=== PATIENT | female | born 1970 | race Caucasian/White ===

== ENCOUNTER 2024-03-13 15:49 | Emergency (ER) | payer MEDICARE, MEDICAID, SELFPAY ==
--- NOTE | ~2024-03-13 | US_ITS ---
RIGHT LOWER EXTREMITY VENOUS ULTRASOUND Ordering provider: Karlos Berumen APRN History: . right leg pain swelling, s/p knee replacement . Comparison: None. FINDINGS: --COMMON FEMORAL: Patent and free of thrombus. Normal compressibility, phasic flow and augmentation. --PROXIMAL SUPERFICIAL FEMORAL: Patent and free of thrombus. Normal compressibility, phasic flow and augmentation. --DISTAL SUPERFICIAL FEMORAL: Patent and free of thrombus. Normal compressibility, phasic flow and au gmentation. --POPLITEAL: Patent and free of thrombus. Normal compressibility, phasic flow and augmentation. --POSTERIOR TIBIAL: Patent and free of thrombus. Normal compressibility, phasic flow and augmentation . IMPRESSION: Negative right lower extremity venous US. No deep vein thrombosis. Reviewed, dictated and finalized at location A.
--- NOTE | ~2024-03-13 | XR_ITS ---
XR knee RT 3V Ordering provider: Marlene Vidal MD History: . POSTOP FEBRUARY 18. RT KNEE PAIN . Comparison: None. FINDINGS: BONES: No acute fracture or dislocation. JOINT SPACES: Right total knee arthroplasty. SOFT TISSUES: Normal. IMPRESSION: No acute osseous abnormality right knee. Right total knee arthroplasty.. Reviewed, dictated and finalized at location A.
[2024-03-13 16:05] VITALS: BP 145/92; PULSE 77; RESP 20; TEMP 36.6; O2SAT 100
[2024-03-13 18:30] VITALS: BP 150/87; PULSE 87; RESP 14; O2SAT 99
[2024-03-13 19:03] LABS: Basophils Absolute Auto 0.1 K/mm3 (0.0-0.1); Basophils Percent Auto 0.9 % (0.2-1.2); Eosinophils Absolute Auto 0.2 K/mm3 (0-0.3); Eosinophils Percent Auto 3.5 % (0-4.4); Hematocrit 41.5 % (37.0-47.0); Hemoglobin 13.7 g/dL (12.0-15.0); Immature Granulocyte Absolute 0.02 K/mm3 (0.00-0.031); Immature Granulocyte Percent A 0.3 % (0-0.5); Lymphocytes Absolute Auto 2.47 K/mm3 (0.9-3.2); Lymphocytes Percent Auto 36.1 % (18.3-44.2); Mean Platelet Volume 9.9 fl (7.4-10.4); Monocytes Absolute Auto 0.5 K/mm3 (0.1-0.6); Monocytes Percent Auto 7.9 % (2.6-8.5); Neutrophils Absolute Auto 3.5 K/mm3 (1.3-6.7); Neutrophils Percent Auto 51.3 % (45.5-73.1); Platelet Count Result 392 k/mm3 (150-375); Red Blood Count 4.28 M/mm3 (4.2-5.4); Red Cell Distribution Width 13.2 % (11.5-14.5); White Blood Count 6.8 K/mm3 (4.5-10.0)
--- NOTE | 2024-03-13 19:08 | ED.LOWEXIN ---
HPI - Extremity Injury (Lower) General Chief Complaint: Extremity Injury, Lower Stated Complaint: right knee pain Time Seen by Provider: 03/13/24 19:02 Source: patient and family Mode of arrival: ambulatory Limitations: no limitations History of Present Illness HPI Narrative: PATIENT IS 53 YEARS OLD WHITE FEMALE CAME TO THE EMERGENCY ROOM BY PRIVATE CAR COMPLAINING OF RIGHT KNEE PAIN RADIATING TO THE BACK OF THE RIGHT LOWER LEG STARTED IMMEDIATELY AFTER HAVING TOTAL KNEE REPLACEMENT ON FEBRUARY 20, [address] HUERTA AT [facility]. PATIENT WAS SEEN BY THAT DOCTOR 1 WEEK LATER AND WAS TOLD THE PAIN IS EXPECTED AND NOTHING SERIOUS ABOUT IT. PATIENT HAVE TRAMADOL AND HYDROCODONE AT HOME WHICH SHE DOES NOT USE BECAUSE IS NOT WORKING. PATIENT DENIES ANY FEVER, CHILLS, NAUSEA, VOMITING, INCREASED PAIN SINCE HAVING THE SURGERY ON FEBRUARY 19. PATIENT IS TELLING ME THAT THEY COULD NOT CONTROL HER PAIN AFTER HAVING THE SURGERY. Related Data Home Medications Medication Instructions Recorded Confirmed meloxicam 15 mg tablet 15 mg PO DAILY 10/24/23 02/01/24 zaleplon 5 mg capsule 5 mg PO QHS PRN 12/04/23 02/01/24 Allergies Allergy/AdvReac Type Severity Reaction Status Date / Time lurasidone AdvReac Severe Itching Verified 03/13/24 19:09 Review of Systems Review of Systems: All systems reviewed & are unremarkable except as noted in HPI and below PMFSH Past Medical History Medical History Anxiety Arthritis Insomnia Obese Osteoarthritis RLS (restless legs syndrome) Sinusitis Surgical History Surgical History History of cholecystectomy History of spinal fusion History of tonsillectomy History of total left knee replacement Hx of breast reduction, elective Family History Family History Father Hypertension Heart disease Mother Depression Sibling Alcoholism Asthma Depression Grandparent Hypertension Heart disease Social History Social History Smoking packs per day: 1.5 Smoking cigarettes per day: 30.0 Years smoked: 10 Smoking pack-years: 15.00 Smoking status: Never smoker Alcohol intake: current Alcohol use details: Occasionally - more social Substance use: never Substance use type: does not use Lack of Transportation: No Lack of Food: Never True Current Housing: I Have Housing Concerned About Future Housing: No Difficulty Paying Gas/Electric Bills: No Difficulty Paying for Meds: No Currently Unemployed: No Difficulty w/ Childcare or Family Care: No Living arrangements: with family Occupation/Education: occupation Gender identity (if verbalized by the patient): Female Exam Narrative: GENERAL APPEARANCE: WELL-DEVELOPED, WELL-NOURISHED SKIN: NORMAL COLOR HEAD: NORMOCEPHALIC, NONTRAUMATIC EYES: CLEAR CONJUNCTIVA ENT: OROPHARYNX NORMAL, EARS NORMAL, NOSE NORMAL NECK: SUPPLE, NONTENDER CHEST AND RESPIRATORY: AIRWAY PATENT, NO RESPIRATORY DISTRESS, NO ACCESSORY MUSCLE USE HEART: REGULAR RATE/RHYTHM ABDOMEN: SOFT, NONTENDER, NO ORGANOMEGALY, QUIET BOWEL SOUNDS VASCULAR: NORMAL PERIPHERAL PULSES, NORMAL CAPILLARY REFILL. MUSCULOSKELETAL: RIGHT KNEE EXAM SHOWED A VERTICAL SURGICAL SCAR, NO ERYTHEMA, NO DRAINAGE, SLIGHTLY SWOLLEN, DIFFUSELY TENDER ANTERIORLY, RIGHT CALF MUSCLE TENDERNESS. NO BRUISES, NO RASH, SLIGHT LIMITED RANGE OF MOTION OF THE RIGHT KNEE NEUROLOGIC: ALERT AND ORIENTED ?3, ZINC CHLORIDE OPERATOR IS NORMAL TESTED, NO GROSS MOTOR DEFICIT Course Consultations Consultation #1: DR HEURTA
[2024-03-13 19:13] LABS: Partial Thromboplastin Time 25.1 Seconds (22.3-36.8); Prothrombin Time 13.1 Seconds (11.1-14.7)
[2024-03-13 19:18] LABS: Alanine Aminotransferase 18 U/L (6-35); Albumin Level 4.3 g/dL (3.5-5.1); Alkaline Phosphatase 126 U/L (38-126); Anion Gap 10 mmol/L (4-12); Aspartate Amino Transferase 23 U/L (14-36); Bilirubin,Total 0.5 mg/dL (0.2-1.3); Blood Urea Nitrogen 16 mg/dL (7-17); Calcium 9.2 mg/dL (8.4-10.2); Carbon Dioxide 26 mmol/L (22-30); Chloride 101 mmol/L (98-107); Estimated CRCL calculation 81 ml/min; Estimated Glomerular Filt Rate > 60; Glucose 90 mg/dL (65-110); Potassium 3.7 mmol/L (3.4-5.0); Sodium 137 mmol/L (137-145)
[2024-03-13] MEDS: HYDROmorphone HCL INJ (*CRX) 1 MG/ML SYR IM (20:20)
[2024-03-13] MEDS: ONDANSETRON HCL ODT 4 MG TABLET PO (20:20)
[2024-03-13 20:46] VITALS: BP 142/88; PULSE 81; RESP 16; O2SAT 100
== END 2024-03-13 20:47 | disposition home or self-care (01) ==
PROVIDERS: Nurse Practitioner Family; Emergency Provider Emergency Medicine; PCP Nurse Practitioner Family
DX: G89.18 Other acute postprocedural pain (principal); M79.661 Pain in right lower leg; G25.81 Restless legs syndrome; M19.90 Unspecified osteoarthritis, unspecified site; Z96.653 Presence of artificial knee joint, bilateral; Z98.1 Arthrodesis status; Z90.49 Acquired absence of other specified parts of digestive tract
CPT/HCPCS: 36415; 73562; 80053; 85025; 85610; 85730; 93971; 96372; 99284; A9270; J1170

== ENCOUNTER 2024-09-12 14:48 | Outpatient (CLI) | payer MEDICARE, MEDICAID, SELFPAY ==
--- NOTE | ~2024-09-12 | CT_ITS ---
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 Automate d exposure control and iterative reconstruction technique were employed. The dose-length product was 235.80 mGy-cm. COMPARISON: None. FINDINGS: CHEST: Thoracic aorta: No significant dilation or calcification. Lung parenchyma and airways: Lungs and airways are clear. Calcified right middle lobe granuloma. Shannon pheral right upper lobe intrapulmonary lymph node. Thoracic inlet, axillae and chest wall: No thyroid or soft tissue mass. No axillary lymphadenopathy. Mediastinum: No mass or lymphadenopathy. Heart and pericardium: Normal heart size. No pericardial effusion. Coronary artery calcifications: Absent. Pleura: No effusion or mass. Upper abdomen: Status post gastric surgery. Status post cholecystectomy. Thoracic bones: No acute osseous finding in the chest. 12 normal appearing paired ribs. 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 IMPRESSION: Unremarkable CT chest findings. Reviewed, dictated and finalized at location K. [facility]
--- OUTSIDE RECORDS SUMMARY | 2024-09-18 07:12 | XMS_ITS | Data Portability ---
Author Organization [place] [facility] [employer], Main Office Address [address] [place] [address] Care Team Providers Care Software Trainer Name Role Phone CATHLEEN TYLER Primary Care Provider CATHLEEN TYLER Referring Provider [phone] JUVENCIO HUERTA Orthopedic Surgeon JOMAR GARBER Dentist Assessment Encounter Date Assessment Date Assessment LastModified by Organization Details LastModified Time 04/18/2024 04/18/2024 53-year-old female presents for follow-up of her right knee status post right TKA on 02/18/2025. She has been working with therapy, she states it is very painful. She currently rates her pain as 5/10 at rest, but much higher when she is being stretched. She also states the the pain is keeping her awake at night and she is experiencing muscle spasms. She was prescribed a muscle relaxant last month but she states the order never went through. She called the office but still was not able to get the script resent. Incision is clean dry intact without any signs of infection. Minimal edema. Her range of motion is 0-100, and she is continuing to work on that. Sensation intact to light touch We will have her continue working with PT. We will give her one more refill on her oxycodone. We will also resend the script for flexeril. We discussed continuing to take anti-inflammator ies. Follow-up in 2 month for recheck, or sooner as needed. [email or web address] Not available 04/18/2024 10:09:05/07/2024 05/07/2024 53-year-old female presents for follow-up of her left knee status post right TKA on 02/19/2024. She reports still having significant pain, and has been working with physical therapy. She feels like there is some crepitus in the back of the knee. She rates the pain as 4 to 6/10. She is requesting a refill on her pain medications. Incisions well healed. Swelling has gone down significantly. Trace effusion. Range of motion 0-120. Nonantalgic gait. X-rays of the knee were reviewed, demonstrating hardware intact and in place, no signs of loosening. She is still less than 3 months out from surgery. We will continue with rehab and she should continue her physical therapy. We gave her a refill for her oxycodone and her Celebrex. Follow-up in 2-3 months. Not available 05/07/2024 17:13:57 06/04/2024 06/04/2024 53-year-old female presents for follow-up of her right TKA on 02/19/2024. She still has significant soreness and stiffness in the knee. She has been doing physical therapy with some improvement, currently taking codeine which is the only thing that helps for her pain, also icing and using essential oils. She currently rates her pain 7 to 8/10. Incision is clean dry intact without any signs of infection. Trace effusion. Range of motion 0-120. Nonantalgic gait. She has had some improvement with physical therapy, but still complains about pain and stiffness. We will send her to pain management to evaluate for other treatment modalities such as nerve block. We will see her back in 2-3 months after the next round of treatment. She may call with any questions prior to then. Not available 06/06/2024 16:21:30 09/03/2024 09/03/2024 53-year-old female presents for evaluation of her right knee. She has a history of a right TKA done on 02/19/2024. She has had persistent swelling and pain and we sent her to pain management. This helped temporarily and she is scheduled for another nerve ablation procedure soon. She reports pain is getting worse. Currently rated 3/10. She has trouble with walking and feels like it gives out sometimes. She has antalgic gait. 1+ effusion. Range of motion 10-120. She does have pain with terminal range of motion. Incision is well healed, no erythema, bleeding, drainage. X-rays were reviewed, demonstrating postsurgical changes with TKA in place. There appears to be a slight lucency at the interface over the medial tibial plateau, no lucency around the stem or rest of the implant she has a persistently painful total knee. We will send her for lab work to rule out infection. WBC, ESR, CRP were ordered. She should continue follow-up with her pain management and get the procedure done. We will see her back in 4-6 weeks for recheck, or sooner as needed. [email or web address] Not available 09/03/2024 11:57:19 Plan of Treatment Reminders Order Date Submit Date Provider Last Modified By Organization Details Last Modified Time Details Appointments Any 5 2024 02:15P Tanner Huerta MD Not available Not available Not available Lab ESR (erythr ocyte sedimen tation rate), blood 2024 025 [facility] (Lab), [address] [place] [address], [phone], 09/04/2024 18:04:21 C-react rojas protein , quantit ative, serum or plasma 2024 025 [facility] (Lab), [address] [place], [place] [address] [address] [place] [address], [phone], 09/04/2024 18:04:21 wbc diff, auto, blood 2024 025 [facility] (Lab), [address] [place], [place] [address] [address] [place] [address], [phone], 09/04/2024 18:04:20 Referral physica l therapi st referra l - continu e [address] [facility], [address] [facility] [address], [place], [address], 05/07/2024 14:48:[address] phys[address]i st referra l - continu e PT [address] [facility], [address], [place], [address], 06/04/2024 15:29:32 pain managem ent referra l 2023 024 [facility], [address], [address] [address], [place], [address], 07/01/2024 11:36:21 Procedures None recorde d. Surgeries None recorde d. Imaging XR, knee, 3 view 2023 024 [email or web address] [facility] [place], [address], [place], [address], 05/08/2024 08:22:33 Medication Orders cyclobe nzaprin e 10 mg tablet 2023 024 [email or web address] [address], [address], 06/04/2024 10:14:26 hydroco done 5 mg-acet aminoph en 325 mg tablet 2023 024 [email or web address] [facility] [address], [address], 04/19/2024 15:21:28 oxycodo ne-acet aminoph en 5 mg-325 mg tablet 2023 024 [email or web address] [facility] [address], [address], 06/04/2024 10:16:02 celecox ib 200 mg capsule 2023 024 [email or web address] [address], [address], 06/04/2024 10:14:20 oxycodo ne 5 mg tablet 2023 024 [email or web address] [address] [place], [address], 06/06/2024 16:19:59 Patient TargetsNo targets recorded. Patient InstructionsNo instructions recorded. Reason for Referral Physical Therapist Referral for History of right total knee replacement continue Referring Physician: Juvencio Huerta, Orthopedic Surgery, Encounter Date: 05/07/2024 Physical Therapist Referral for Pain of right knee joint continue PT Referring Physician: Juvencio Huerta, Orthopedic Surgery, Encounter Date: 06/04/2024 Pain Management Referral for Pain of right knee joint Referring Physician: Juvencio Huerta, Orthopedic Surgery, Encounter Date: 06/04/2024 Results Created Date Observation Date Name Description Value Unit Range Abnormal Flag Note LastModifiedBy Organization Detail LastModifiedTime 05/07/20 24 XR, knee, 3 view No observ ation record ed. [email or web address] [facility] [place] [address] [facility] [address], [place], [address], 05/07/2024 11:40:11 Result Notes None recorded. Problems Name Problem SNOMED Code Status Onset Date Resolution Date Notes Provider Name and Address Organization Details Recorded Time Insomnia 156956856 Active 2022 Not Available [employer] 3 22:21:20 Anxiety 26519248 Active 2022 Not Available [employer] 3 22:21:20 Hyperlipid emia 00645272 Active 2022 Not Available [employer] 3 22:21:20 Hyperglyce elio 36151967 Active 2022 Not Available [employer] 3 22:21:20 Osteoarthr itis of knee 405147901 Active 2022 Not Available [employer] 3 22:21:20 Obese 729495891 Active 2022 Not Available [employer] 3 22:21:20 Pain of bilateral knee joints 7142495868368 04 Active 2022 Not Available [employer] 3 22:21:20 Arthritis of left knee 8978025170770 104 Active 2022 Not Available [facility] 3 22:21:20 Restless legs 98434419 Active 2022 Not Available [facility] 3 22:21:20 Pain of left knee joint 4826998353280 07 Active 2022 Virginia Diego ATC L null, [place] [facility] 3 10:07:27 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 4859007700869 9104 Active 2023 Virginia Diego ATC L null, [place] [facility] 4 10:56:33 Pain of right knee joint 9925007295909 00 Active 2023 PATY Rai, [place] [facility] 4 10:22:59 Lesion of lip 163152499 Active 2023 Gerald Madison MD [address] [facility], [address], [address] , [facility] 4 12:59:00 Postoperat rojas pain 574951286 Active 2023 Gerald Madison MD [address] [facility], [address] [address], [place], [address] , [facility] 4 16:56:21 Skin tag 012947269 Active 2023 FABIAN Romano [address] [facility], [address] [address], [place], [address] , [facility] 4 12:18:24 Mechanical complicati on of implant 650736586 Active 2024 Virginia Diego ATC L null, [facility] 5 11:11:13 Problem Notes None recorded. Procedures Surgical History Date Name Laterality Status Provider Name and Address Organization Details Recorded Time 02/19/20 24 Knee Surgery completed PATY Alexander [facility] 02/20/2024 11:34:36 04/25/20 23 Ortho - Cortisone Injection completed Armida Forrester NP [address] [facility], [address], [place], [address], [facility] [employer] [facility] 04/26/2023 21:15:12 04/02/20 23 Date of Last Pap Smear completed Kelsea Garcias MA [facility] [facility] 04/20/2023 15:47:50 01/26/20 23 liposuction of subcutaneous tissue completed Kelsea Garcias MA [facility] [facility] 04/20/2023 15:42:45 01/26/20 23 abdominoplasty completed Kelsea Garcias MA [facility] [employer] [facility] 04/20/2023 15:43:32 10/26/19 23 Most Recent Mammogram completed Kelsea Garcias MA [facility] [employer] [facility] 04/20/2023 15:47:01 02/16/20 22 Gastric bypass incl small i completed Kelsea Garcias MA [facility] [employer] [facility] 04/20/2023 15:42:03 08/27/19 21 cholecystectomy completed Kelsea Garcias MA [facility] [employer] [facility] 04/20/2023 15:44:09 tonsillectomy completed YFN Benedict [facility] [employer] [facility] 04/08/2024 15:42:44 excision of lesion of mouth completed YFN Benedict [facility] [employer] [facility] 04/08/2024 15:43:41 Imaging Results Imaging Date Name Status LastModified by Organiz ation Details LastModified Time 05/07/2024 XR, knee, 3 view completed [email or web address] [facility] Lola Tariq [address] [facility] [address], [place], [address], 05/07/2024 11:40:11 Procedure Notes None recorded. Medical Equipment None Reported. Allergies Allergen ID Allergen Name Allergen Category Reaction Reaction Severity Criticality Documentation Date Start Date Code Code System Note Provider Name and Address Organization Details Recorded Time 68466 lurasidon e medicatio n itching Not available Not available 04/08/2024 03558 28 RxNorm Leg spasm s, itchi ng. YFN Benedict [facility] 15:46:58 83061 Toradol medicatio n Not available Not available Not available 06/04/2024 08847 RxNorm ROSA Pastor, [facility] 10:13:43 Medications Name Sig Start Date Stop Date Status Note LastModified by Organization Details LastModified Time celecoxib 200 mg capsule TAKE 1 CAPSULE BY MOUTH EVERY DAY 2023 active Not Available Not Available Not Avai lable ketorolac 15 mg/mL injection solution 15 mg by injection route. 02/18 completed Not Available Not Available Not Available cyclobenzap rine 10 mg tablet Take 10 mg by oral route. 06/04 completed Not Available Not Available Not Available cefazolin 1 gram solution for injection 3000 mg by injection route. 02/18 completed Not Available Not Available Not Available methocarbam ol 500 mg tablet TAKE 1 TABLET BY MOUTH EVERY 6 HOURS 03/18 completed Not Available Not Available Not Available buspirone 5 mg tablet 04/20 completed Not Available Not Available Not Available neomycin-po lymyxin-hyd rocort 3.5 mg/mL-10,00 0 unit/mL-1 % ear solution 04/20 completed Not Available Not Available Not Available prednisone 10 mg tablet 04/20 completed Not Available Not Available Not Available metoclopram janene 5 mg/mL injection solution Take 10 mg by injection route. 06/04 completed Not Available Not Available Not Available ropinirole 1 mg tablet TAKE 1 TABLET BY MOUTH EVERY DAY 04/08 completed Not Available Not Available Not Available diphenhydra mine 50 mg capsule 50 mg by oral route. 02/19 completed Not Available Not Available Not Available trazodone 50 mg tablet TAKE 1-2 TABLETS BY MOUTH AT BEDTIME NEEDED active Not Available Not Available No t Available oxybutynin chloride ER 10 mg tablet,exte nded release 24 hr TAKE 1 TABLET BY MOUTH EVERY DAY active Not Available Not Available No t Available tizanidine 4 mg tablet Armida Forrester NP 06/04 completed Not Available Not Available Not Available hydrocodone 5 mg-acetamin ophen 325 mg tablet 1 tab q4-6h PRN for pain 2023 active Not Available Not Available Not Avai lable tretinoin 0.025 % topical cream APPLY A THIN LAYER TO FACE BEFORE BEDTIME AFTER WASHING. THEN LAYER WITH MOISTURIZ ER NEEDED. active Not Available Not Available No t Available naloxone 0.4 mg/mL injection solution 0.2 mg by injection route. 02/18 completed Not Available Not Available Not Available meloxicam 15 mg tablet TAKE 1 TABLET BY MOUTH EVERY DAY 04/08 completed Not Available Not Available Not Available Diprivan 10 mg/mL intravenous emulsion 1000 mg by intraven. route. 02/18 completed Not Available Not Available Not Available prednisone 20 mg tablet 04/20 completed Not Available Not Available Not Available lactated Ringers intravenous solution Inject 1000 mL by intraven. route. 06/04 completed Not Available Not Available Not Available phentermine 15 mg capsule Take 1 capsule every day by oral route in the morning. 04/20 completed Not Available Not Available Not Available phentermine 37.5 mg tablet TAKE 1 TABLET BY MOUTH EVERY DAY ADMINISTE R 30 MINUTES BEFORE OR 1-2 HOURS AFTER BREAKFAST active Not Available Not Available No t Available hydrocodone 10 mg-acetamin ophen 325 mg tablet 1 tablet by oral route. 02/19 completed Not Available Not Available Not Available doxycycline monohydrate 100 mg tablet TAKE 1 TABLET BY MOUTH DAILY 06/04 completed Not Available Not Available Not Available tramadol 50 mg tablet Take 50 mg by oral route. 06/04 completed Not Available Not Available Not Available vancomycin 1,000 mg intravenous injection 1000 mg by intraven. route. 02/18 completed Not Available Not Available Not Available acetaminoph en 500 mg tablet 1000 mg by oral route. 02/18 completed Not Available Not Available Not Available triamcinolo ne acetonide 0.1 % topical cream APPLY TOPICALLY TWICE A DAY 04/08 completed Not Available Not Available Not Available cefazolin 10 gram solution for injection 2000 mg by injection route. 02/18 completed Not Available Not Available Not Available amoxicillin 500 mg tablet 500 MG ORALLY EVERY 12 HOURS active Not Available Not Available No t Available lamotrigine 25 mg tablet TAKE 2 TABLETS BY MOUTH EVERY DAY FOR 90 DAYS active Not Available Not Available No t Available meloxicam 7.5 mg tablet 04/20 completed Not Available Not Available Not Available oxycodone-a cetaminophe n 5 mg-325 mg tablet TAKE 1 TABLET BY MOUTH EVERY 6 HOURS 06/04 completed Not Available Not Available Not Available Celebrex 100 mg capsule Take 200 mg by oral route. 06/04 completed Not Available Not Available Not Available famotidine 20 mg tablet 20 mg by oral route. 02/18 completed Not Available Not Available Not Available sodium chloride 0.9 % injection solution 20 mL by injection route. 02/18 completed Not Available Not Available Not Available diphenhydra mine 50 mg/mL injection solution 12.5 mg by injection route. 02/18 completed Not Available Not Available Not Available Kenalog 10 mg/mL suspension for injection IN OFFICE 07/03 completed [facility]: [phone] Not Available Not Available Not Available hydrocodone 7.5 mg-acetamin ophen 325 mg tablet active Not Available Not Available No t Available ropinirole 2 mg tablet TAKE 1 TABLET BY MOUTH EVERY DAY AT BEDTIME. active Not Available Not Available No t Available cephalexin 500 mg capsule 04/20 completed Not Available Not Available Not Available paroxetine 30 mg tablet TAKE 1 TABLET BY MOUTH EVERY DAY FOR 90 DAYS active Not Available Not Available No t Available paroxetine 20 mg tablet TAKE 1 TABLET BY MOUTH EVERY DAY active Not Available Not Available No t Available buspirone 10 mg tablet TAKE 1 TABLET BY MOUTH TWICE DAILY 06/04 completed Not Available Not Available Not Available Sensorcaine -MPF 0.5 % (5 mg/mL) injection solution 10 mL by injection route. 02/18 completed Not Available Not Available Not Available fentanyl (PF) 50 mcg/mL injection solution 25 microgram s by injection route. 02/18 completed Not Available Not Available Not Available oxybutynin chloride ER 5 mg tablet,exte nded release 24 hr TAKE 1 TABLET BY MOUTH EVERY DAY 04/08 completed Not Available Not Available Not Available gabapentin 300 mg capsule Take 300 mg by oral route. 06/04 completed Not Available Not Available Not Available aspirin 81 mg chewable tablet Chew 81 mg by oral route. 06/04 completed Not Available Not Available Not Available diclofenac sodium 75 mg tablet,cassie yed release TAKE 1 TABLET BY MOUTH TWICE A DAY NEEDED FOR PAIN active Not Available Not Available No t Available cephalexin 500 mg tablet 04/20 completed Not Available Not Available Not Available zaleplon 10 mg capsule TAKE 1 CAPSULE BY MOUTH EVERY DAY NEEDED AT BEDTIME active Not Available Not Available No t Available mirtazapine 15 mg tablet 04/20 completed Not Available Not Available Not Available gabapentin 100 mg capsule 04/20 completed Not Available Not Available Not Available sodium chloride 0.9 % intravenous solution 100 mL by intraven. route. 02/18 completed Not Available Not Available Not Available nystatin 100,000 unit/gram topical powder 04/20 completed Not Available Not Available Not Available dexamethaso ne sodium phosphate 4 mg/mL injection solution 4 mg by injection route. 02/18 completed Not Available Not Available Not Available zaleplon 5 mg capsule TAKE 1 CAPSULE BY MOUTH EVERY DAY NEEDED AT BEDTIME active Not Available Not Available No t Available methylpredn isolone 4 mg tablets in a dose pack TAKE 6 TABLETS ON DAY 1 DIRECTED ON PACKAGE AND DECREASE BY 1 TAB EACH DAY FOR A TOTAL OF 6 DAYS 04/08 completed Not Available Not Available Not Available albuterol sulfate HFA 90 mcg/actuati on aerosol inhaler 04/20 completed Not Available Not Available Not Available oxybutynin chloride 5 mg tablet Take 5 mg by oral route. 06/04 completed Not Available Not Available Not Available hydroxyzine HCl 10 mg tablet 04/20 completed Not Available Not Available Not Available ondansetron 4 mg disintegrat ing tablet Place 8 mg by oral route. 06/04 completed Not Available Not Available Not Available amoxicillin 875 mg-potrigoiu m clavulanate 125 mg tablet 04/20 completed Not Available Not Available Not Available amoxicillin 500 mg-potassiu m clavulanate 125 mg tablet TAKE 1 TABLET BY MOUTH EVERY 12 HOURS 12/03 completed Not Available Not Available Not Available oxycodone 5 mg tablet TAKE 1 TABLET BY MOUTH EVERY 6 HOURS active Not Available Not Available No t Available escitalopra m 10 mg tablet Take 10 mg by oral route. 06/04 completed Not Available Not Available Not Available escitalopra m 20 mg tablet TAKE 1 TABLET BY MOUTH EVERY DAY 04/08 completed Not Available Not Available Not Available atomoxetine 25 mg capsule active Not Available Not Available Not Available atomoxetine 40 mg capsule TAKE 1 CAPSULE BY MOUTH EVERY DAY IN THE MORNING FOR 30 DAYS active Not Available Not Available No t Available atomoxetine 60 mg capsule TAKE 1 CAPSULE BY MOUTH EVERY DAY IN THE MORNING FOR 30 DAYS active Not Available Not Available No t Available aripiprazol e 5 mg tablet TAKE 1 TABLET BY MOUTH DAILY 04/20 completed Not Available Not Available Not Available bupropion HCl XL 300 mg 24 hr tablet, extended release TAKE 1 TABLET BY MOUTH EVERY DAY IN THE MORNING active Not Available Not Available No t Available bupropion HCl XL 150 mg 24 hr tablet, extended release TAKE 1 TABLET BY MOUTH EVERY MORNING active Not Available Not Available No t Available escitalopra m 5 mg tablet TAKE 1 TABLET BY MOUTH EVERY DAY FOR 90 DAYS 06/04 completed Not Available Not Available Not Available nitrofurant oin monohydrate /macrocryst als 100 mg capsule 100 MG ORALLY EVERY 12 HOURS FOR 7 DAYS MUST ADMINISTE R WITH A MEAL/FOOD active Not Available Not Available No t Available sodium chloride 0.9 % intravenous piggyback 50 mL by intraven. route. 02/18 completed Not Available Not Available Not Available ondansetron HCl (PF) 4 mg/2 mL injection solution 4 mg by injection route. 02/18 completed Not Available Not Available Not Available ropinirole ER 2 mg tablet,exte nded release 24 hr Take 1 tablet by oral route. 06/04 completed Not Available Not Available Not Available Senexon-S 8.6 mg-50 mg tablet TAKE 2 TABLETS BY MOUTH EVERY DAY active Not Available Not Available No t Available lurasidone 40 mg tablet 04/08 completed Not Available Not Available Not Available Naropin (PF) 5 mg/mL (0.5 %) injection solution 200 mg by injection route. 02/18 completed Not Available Not Available Not Available tranexamic acid 1,000 mg/10 mL (100 mg/mL) intravenous solution 1000 mg by intraven. route. 02/18 completed Not Available Not Available Not Available hydromorpho ne 0.5 mg/0.5 mL injection syringe 0.5 mg by injection route. 02/18 completed Not Available Not Available Not Available morphine 2 mg/mL intravenous syringe 2 mg by intraven. route. 02/18 completed Not Available Not Available Not Available vancomycin 1.5 gram/300 mL in diluent combination IV piggyback 1500 mg by intraven. route. 02/18 completed Not Available Not Available Not Available Vitals Date Recorded Body height Body mass index (BMI) Body weight Provider Name and Address Organization Details Last Updated DateTime 04/18/2024 162.56 cm 37.9 kg/m2 398532.91 g Marquita Jacobs [facility] [employer] [facility] [employer] 04/18/2024 09:45:40 Date Recorded Body height Body mass index (BMI) Body weight Body temperature Provider Name and Address Organization Details Last Updated DateTime 05/01/2024 162.56 cm 40 kg/m2 945351.1 g 97.9 [degF] [facility] [employer] [facility] [employer] 05/01/2024 12:00:30 Date Recorded Body height Body mass index (BMI) Body weight Provider Name and Address Organization Details Last Updated DateTime 05/07/2024 162.56 cm 40 kg/m2 484202.02 g Marquita Jacobs [facility] [employer] [facility] [employer] 05/07/2024 11:20:51 Date Recorded Body height Body mass index (BMI) Body weight Provider Name and Address Organization Details Last Updated DateTime 06/04/2024 162.56 cm 40 kg/m2 164774.02 g Andie Kiran CNA [employer] [facility] [employer] 06/04/2024 10:12:57 Date Recorded Body height Body mass index (BMI) Body weight Provider Name and Address Organization Details Last Updated DateTime 09/03/2024 162.56 cm 48.6 kg/m2 679637.64 g PATY Alexander Bee Ware 09/03/2024 10:37:00 Social History Question Answer Notes LastModified by Organization Details LastModified Time Tobacco Smoking Status Former Smoker COLE Mancini, Bee Ware 04/20/2023 15:35:56 Do You Have An Advance Directive? No Information not available 04/20/2023 What Is Your Level Of Alcohol Consumption? Occasional Information not available 04/20/2023 Is Blood Transfusion Acceptable In An Emergency? No Bob=loco Coates Information not available 04/20/2023 What Is Your Level Of Caffeine Consumption? Occasional Information not available 04/20/2023 What Is Your Code Status? DNR/DNI Information not available 04/20/2023 In The 14 Days Before Symptom Onset, Have You Had Close Contact With A Laboratory-conf irmed COVID-19 While That Case Was Ill? No Information not available 04/20/2023 In The 14 Days Before Symptom Onset, Have You Had Close Contact With A Person Who Is Under Investigation For COVID-19 While That Person Was Ill? No Information not available 04/20/2023 Are You Currently Employed? Yes Information not available 04/20/2023 What Type Of Diet Are You Following? REGULAR Information not available 04/20/2023 What Is The Highest Grade Or Level Of School You Have Completed Or The Highest Degree You Have Received? [id number] Information not available 04/20/2023 What Is Your Occupation? [employer] Information not available 04/20/2023 Have There Been Any Changes To Your Family Or Social Situation? Yes Information not available 04/20/2023 What Is The Fluoride Status Of Your Home? Fluoridated Information not available 04/20/2023 When Did You Quit Smoking? 11-15yearssincelas tcigarette Information not available 04/20/2023 Are There Any Guns Present In Your Home? No Information not available 04/20/2023 Do You Use Insect Repellent Routinely? Yes Information not available 04/20/2023 Where Do You Live? SingleLevelHouse Information not available 04/20/2023 Do You Have A Medical Power Of Cigarette Tester? No Information not available 04/20/2023 How Many Children Do You Have? 3 Information not available 04/20/2023 What Is Your Current Pack Years? 10-19packyears Information not available 04/20/2023 Have You Ever Been Counseled For Unhealthy Alcohol Use? No Information not available 04/20/2023 Do You Have Any Pets? Yes 1 Small Dog Information not available 04/20/2023 What Is Your Relationship Status? Single Information not available 04/20/2023 Do You Use Your Seat Belt Or Car Seat Routinely? Yes Information not available 04/20/2023 Are You Sexually Active? No Information not available 04/20/2023 Do You Have Smoke And Carbon Monoxide Detectors In Your Home? Yes Information not available 04/20/2023 At What Age Did You Start Smoking Tobacco? 27 Information not available 04/20/2023 Are You Passively Exposed To Smoke? No Information not available 04/20/2023 Are There Any Smokers In Your House? No Information not available 04/20/2023 Do You Participate In Social Media? Yes Information not available 04/20/2023 Do You Feel Stressed (tense, Restless, Nervous, Or Anxious, Or Unable To Sleep At Night)? [id number] [email or web address] Information not available 07/03/2023 Do You Use Any Illicit Or Recreational Drugs? No Information not available 04/20/2023 Do You Use Sunscreen Routinely? Yes Information not available 04/20/2023 Has Tobacco Cessation Counseling Been Provided? No Information not available 04/20/2023 How Many Years Have You Smoked Tobacco? 15 Information not available 04/20/2023 Have You Recently Traveled Abroad? No Information not available 04/20/2023 Are You Currently In School? No Information not available 04/20/2023 Do You Have Any Dietary Restrictions? No Information not available 04/20/2023 Do You Or Have You Ever Used Any Other Forms Of Tobacco Or Nicotine? No Information not available 04/20/2023 How Many Days In The Past Year Have You Consumed 4 Or More Drinks? 2 Information not available 04/20/2023 Sex: Unknown Functional Status Question Answer Note LastModified by Organizat ion Details LastModified Time What is your exercise level? Occasional Information not available 04/20/2023 Mental Status None recorded. Family History Relationship Description Onset Age of this Age Resolved Age Notes LastModified by Organization Details LastModified Time Father Hypertensive disorder Not available 2022 15:32:47 Father Myocardial infarction 72 [email or web address] Not available 04/20 16:09:28 Mother Hypertensive disorder Not available 2022 15:33:04 Notes:NO ENT Medical History Condition Response CANCER: SPECIFY Y ARTHRITIS Y ENT Y ANXIETY DISORDER Y DEPRESSION (INCLUDING POST ) Y HYPERTENSION Y Gynecological History Statement/Question Response Abnormal Pap N Date of Last Colonoscopy Date of LMP 08/27/2006 Menses Monthly Y Date of Last Pap Smear 04/02/2023 Age at Menarche 11 Most Recent Mammogram 10/25/2022 Obstetrics History GPAL:G 3 P 3 0 0 0 Type Value Full Term 3 Total 3 Immunizations Vaccine Type Date Status Note Provider Nam e and Address Organization Details Recorded Time Td (adult), 5 Lf tetanus toxoid, preservative free, adsorbed 3 completed Kelsea Garcias MA null, [employer] [facility] [employer] 04/20/2023 17:04:30 MMR 3 completed Cathleen Tyler NP [address] [facility] [address], [place], [address], [facility] [employer] 07/05/2023 16:17:44 Influenza, split virus, quadrivalent, PF 3 completed Cathleen Arevalo RN null, [place] [facility] [employer] [facility] 07/12/2023 09:22:23 Past Encounters Encounter ID Performer Location Encounter Start Date Encounter Closed Date Diagnosis/Indication Diagnosis SNOMED-CT Code Diagnosis ICD10 Code Diagnosis Note [id number] Cathleen Tyler NP [address] [address] 04/20/2023 15:15:45 04/20/2023 16:59:03 Insomnia 434586629 G47.00 Trazodone 50 mg po nightly. Anxiety 19195355 F41.9 Buspar 10 mg po bid.Lexapr o 20 mg po daily. Hyperlipidemia 21115799 E78.5 Lipid panel.Low fat diet. Hyperglycemia 67299639 R 73.9 CMp and A1c. Ex-smoker 3758668 Z87.89 1 stopped aprox 2004. Osteoarthr itis of knee 104334527 M17.9 Referring to ortho Administra tion of tetanus vaccine 820462364 Z23 Obese 551207072 E66.9 pt to check to see if wegovy or saxenda covered on insurance. [id number] Cathleen Tyler NP [address] [address] 04/24/2023 09:38:08 04/24/2023 11:19:31 [id number] Armida Forrester NP [facility] [place] [address] [place] [address] 04/25/2023 15:46:36 04/25/2023 16:39:30 Pain of bilateral knee joints 8226073739 75308 M25.561 M25.377 [id number] Juvencio Huerta MD [facility] [place] [address] [place] [address] 05/23/2023 15:21:52 05/23/2023 15:58:35 Pain of bilateral knee joints 6434036225 15518 M25.561 M25.562 Arthritis of left knee 6938103242 729478 M13.937 [id number] Cathleen Tyler NP [address] [place] [address] 07/03/2023 15:38:25 07/03/2023 16:16:00 History and physical examination, pre-employment 004716864 Z02.1 Encouraged well balanced meals, active lifestyle, and routine vision and dental appts. Hyperlipidemia 50119426 E78.5 Lipid panel.Low fat diet. Hyperglycemia 86847641 R 73.9 Fasting glucose and A1C good. Insomnia 509310370 G47.0 0 ropinirole working and sleeping well. Obese 972109860 E66.9 pt to check to see if wegovy or saxenda covered on insurance. Restless legs 74765037 G 25.81 Ropinirole 1 mg po nightly. Osteoarthr itis of knee 546379300 M17.9 ortho doing knee replacemen t 07/26/23 and then other knee 1 mo later. [id number] Cathleen Tyler NP [facility]_[address] [address] 07/05/2023 14:54:51 07/05/2023 17:00:08 Administration of measles and mumps and rubella vaccine 89719987 Z23 MMR #1 today 07/05/23#2 must be at least 28 days from the first. [id number] Cathleen Tyler NP [facility] [address] 07/11/2023 18:06:51 07/12/2023 07:51:08 Administration of influenza vaccine 79223084 Z23 [id number] Armida Forrester NP [facility] [place] [address] [place] [address] 08/03/2023 09:52:22 08/03/2023 10:09:26 Pain of left knee joint 7328849608 25998 M25.616 [id number] Armida Forrester NP [facility] [place] [address] [place] [address] 08/15/2023 09:15:21 08/15/2023 10:00:59 Arthritis of left knee 6279067610 020399 M13.862 Pain of le ft knee joint 2670200749 65598 M25.720 [id number] Armida Forrester NP [facility] [place] [address] [place] [address] 09/12/2023 09:37:35 09/12/2023 10:20:47 Pain of left knee joint 9288196891 05676 M25.295 [id number] Juvencio Huerta MD [facility] [place] 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 [place] [address] 10/31/2023 10:26:54 10/31/2023 11:20:12 Pain of left knee joint 1155573214 33411 M25.495 [id number] Juvencio Huerta MD [facility] [place] [address] [place] [address] 12/12/2023 10:37:35 12/12/2023 11:18:33 Pain of left knee joint 3725205187 90479 M25.698 [id number] Juvencio Huerta MD [facility] [place] [address] [place] [address] 01/29/2024 10:20:08 01/29/2024 11:00:44 Pain of right knee joint 0069830250 22953 M25.490 [id number] Juvencio Huerta MD [facility] [place] [address] [place] [address] 02/27/2024 15:37:06 02/27/2024 16:32:53 Pain of right knee joint 0352043256 63243 M25.012 [id number] PITO Santacruz [facility] [place] [address] [place] [address] 03/14/2024 13:56:23 03/14/2024 14:18:17 Pain of right knee joint 7971949511 93310 M25.561 History of total knee arthroplasty 9461915199 105 Z96.499 [id number] Juvencio Huerta MD [facility] [place] [address] [place] [address] 03/19/2024 11:40:55 03/19/2024 12:06:43 Pain of right knee joint 3302588709 64855 M25.819 [id number] Gerald Madison MD [facility] [place] [address] [place] [address] 04/09/2024 12:43:21 04/10/2024 09:49:12 Lesion of lip 051085447 K13.0 [id number] Armida Forrester NP [facility] [place] [address] [place] [address] 04/18/2024 09:43:26 04/18/2024 10:10:22 History of right total knee replacement 0554844531 863837 Z96.651 Pain of ri ght knee joint 1585265171 37804 M25.900 [id number] FABIAN Romano [facility] [place] [address] [place] [address] 05/01/2024 11:50:44 05/01/2024 12:20:10 Lesion of lip 045513342 K13.0 S/P lip varix excision. Sutures removed without difficulty . No s/s of infection. Skin tag 003260565 L91.8 S/P skin tag removal underneath right eyelid. No s/s of infection. [id number] Juvencio Huerta MD [facility] [place] 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 [place] [address] 06/04/2024 09:55:16 06/04/2024 11:41:40 Pain of right knee joint 6850532850 78996 M25.573 [id number] Juvencio Huerta MD [facility] [place] [address] [place] [address] 09/03/2024 10:32:19 09/03/2024 11:58:51 History of right total knee replacement 6768746992 849868 Z96.651 Mechanical complication of implant 651669619 T85.698A T84.039A Health Concerns Section Related Observation LastModified by Organization Detai ls LastModified Time None Recorded Concern Status LastModified by Organization Details LastModified Time None Recorded Advance Directives Directive N: Payers Encounter Date Sequence Insurance Name Policy Number Policy Bartlett Covered Member ID Bartlett Member ID Guarantor Name 04/18/2024 1 [employer] (MEDICARE REPLACEMENT PPO) [id number] [place] [id number] Mile [place] 04/18/2024 2 [place] [facility] Miel Ruiz [id number] [place] 05/01/2024 1 [employer] (MEDICARE REPLACEMENT PPO) [id number] [place] [id number] Mile Ruiz 05/01/2024 2 [place] [facility] Mile Ruiz [id number] Mile Ruiz 05/07/2024 1 [employer] (MEDICARE REPLACEMENT PPO) [id number] [place] [id number] Mile Ruiz 05/07/2024 2 [place] [facility] Mile Ruiz [id number] Mile Ruiz 06/04/2024 1 [employer] (MEDICARE REPLACEMENT PPO) [id number] [place] [id number] Mile Ruiz 06/04/2024 2 [place] [facility] Mile Ruiz [id number] Mile Ruiz 09/03/2024 1 [employer] (MEDICARE REPLACEMENT PPO) [id number] [place] [id number] Mile Joseph 09/03/2024 2 [place] [facility] Mile Ruiz [id number] Mile Ruiz Notes Date Note Type Note Provider Name and Address Organization Details Recorded Time 05/01/2024 text/html This patient has a past medical history significant for anxiety, arthritis, breast cancer, depression, and lip varix. she presents to the office for postoperative excision of lip varix and skin tags underneath right eye on 04/19/2024. Biopsies were completed, left lower lip resulted in hemangioma and benign findings of skin tags to right eye. She denies any complaints. Tomasa Melton, DRAINAGE ENGINEER [address] [facility] [facility] [address], [place], [address], [facility] [employer] 05/01/2024 12:19:02 OBGyn Episode Ob Episode Information Episode Created Date Number of Fetuses Patient Bloodtype Patient rh Status Prepregnancy Weight lbs Domestic Partner Domestic Partner Phone Father Name Plasterer Spot Status 04/20/20 23 1 CLOSED Fetus Data First Name Last Name Admitted to NICU Weight (g) Sex Living Outcome Pediatric Complications Fetus ID Race Codes Race Delivery Type M Full Term 421 Eber Calculation Initial Eber Date Initial Exam Date Initial Exam Provider Initial Ultrasound Date Last Menstrual Period Date Ultra Sound Weeks Gestation 0 Eighteen To Twenty Week Eber Update Ultra Sound Date Fundal Height At Umbil Quickening Date Ultra Sound Latest Weeks Gestation Final Eber Confirmed By Final Eber Confirmed Date Final Eber Date Ultra Sound Latest Days Gestation 0 0 Menstrual History Last Menstrual Date Menses Monthly On Bcp Conception Prior Menses Frequency Hcg Plus Date Menarche Onset Age Delivery Information Delivery Date Delivery Type Labor Anesthesia Weeks Gestation Incision Type Labor Labor Length Hrs Delivered By Post Complications Tubal Sterilization Discharge Date Comments 0 Discharge Information Feeding Method Contraceptive Method Maternal HG B and HCT Levels
== END 2024-09-12 14:49 | disposition home or self-care (01) ==
LOC: ANHIMG 14:52
PROVIDERS: PCP Nurse Practitioner Family; Visit Provider Nurse Practitioner Family
DX: Q76.6 Other congenital malformations of ribs (principal)
CPT/HCPCS: 71250

== ENCOUNTER 2024-10-23 12:56 | Outpatient (CLI) | payer MEDICARE, MEDICAID, SELFPAY | END 2024-10-23 12:57 | disposition home or self-care (01) | LOC: ANHNEURO 12:58 | PROVIDERS: PCP Nurse Practitioner Family; Visit Provider Nurse Practitioner Family | DX: R20.0 Anesthesia of skin (principal); R20.2 Paresthesia of skin; G56.00 Carpal tunnel syndrome, unspecified upper limb | CPT/HCPCS: 95886; 95911 ==

== ENCOUNTER 2024-10-30 11:55 | Outpatient (CLI) | payer MEDICARE, MEDICAID, SELFPAY ==
--- NOTE | ~2024-10-30 | MM_ITS ---
EXAMINATION: MM screening gómez BI w tiffanie HISTORY: Screening mammogram TECHNIQUE: Craniocaudal and mediolateral oblique 3-D tomosynthesis images were obtained and synthetic 2-D images were generated. CAD analysis was submitted and interpreted. COMPARISON: No prior mammogram is available for comparison at this institution. BREAST PARENCHYMAL COMPOSITION:Not Dense. The breasts are almost entirely fatty FINDINGS: No suspicious mass, calcification, or architectural distortion are identified in either denisha ast to suggest malignancy. There has been no suspicious interval change. IMPRESSION: No mammographic evidence of malignancy. Recommend routine screening mammography in one year. BI-RADS Category 1: Negative Reviewed, dictated and finalized at location . TECHNICIAN/PAINTER
--- OUTSIDE RECORDS SUMMARY | 2024-10-30 13:24 | XMS_ITS ---
Author Organization [facility] Address [address] [address] Care Team Providers Care Pouncing Lathe Operator Name Role Phone Cathleen Alves Primary Care Provider Ping Christin Jackson Unavailable [phone] REASON FOR VISIT cancelled through portal Social History Sex Assigned At : Social History Observation Description Sex Assigned At Female Encounters Encounter Location Date Provider Diagnosis [facility] [place] [address] [place] [address] 09/26/2024 Christin Joyce Plan Of Treatment Next Appt Details Provider Name:Christin Joyce, 12/05/2024 11:00:00 AM, [address], [place], [address], Progress Notes * MARGARET SANCHEZB: 1 (53 yo F)Acc No.[id number]:09/26/2024 Patient: Tanner CLARISSA CABAN Provider: EARNESTINE STILL :1970 A ge:53 Y S ex:Female Date:09/26/2024 [facility] Pcp:Cathleen AVILA Subjective: * Chief Complaints: * 1 . Cancelled through portal. * Medical History: Objective: * Vitals: Assessment: Plan: * Treatment: * Billing Information: * Visit Code: * Procedure Codes: * Electronic signature of EARNESTINE Mixon on 10/30/2024 at 01:24 PM STATION WORKER Sign off status: Pending * Provider: EARNESTINE STILL Date: 0 09/26/2024 Generated for Edna bo/Teo/Ronny on: 0 10/30/2024 01:24 PM STATION WORKER
--- OUTSIDE RECORDS SUMMARY | 2024-10-30 13:24 | XMS_ITS | Clinical Summary ---
Author Organization [facility] Address [address] [place] [address] Care Team Providers Care Final Assembly Inspector Name Role Phone Marielena Cisneros MD Primary Care Provider Allergies Active Allergy Reactions Criticality Noted Date Comments Nsaids (Non-Steroidal Anti-Inflammatory Drug) Other (See Comments) 07/27/2022 Had stomach surgery Medications lamoTRIgine (LaMICtal XR) 300 mg Extended Release 24 hour tablet Take 300 mg by mouth daily. 2 Active escitalopram oxalate (LEXAPRO) 5 mg tablet Take 10 mg by mouth daily in the morning. 2 Active busPIRone (BUSPAR) 10 mg tablet Take 10 mg by mouth. 3 Active Phentermine 15 mg Capsule TAKE 1 CAPSULE BY MOUTH DAILY BEFORE BREAKFAST Active buPROPion HCL (WELLBUTRIN XL) 150 mg Extended Release 24 hour tablet TAKE 1 TABLET BY MOUTH EVERY MORNING. STOP BUSPAR 4 Active celecoxib (CeleBREX) 200 mg capsule Take 1 Capsule by mouth daily. 4 Active rOPINIRole (REQUIP) 2 mg Tablet take 1 tablet by mouth every day at bedtime 4 Active zaleplon (SONATA) 5 mg capsule take 1 capsule by mouth at bedtime as needed 4 Active escitalopram oxalate (LEXAPRO) 10 mg tablet Take 1 Tablet by mouth daily. 4 Active atomoxetine (STRATTERA) 40 mg capsule Take 40 mg by mouth daily. Active diclofenac sodium (VOLTAREN) 75 mg Tablet, Delayed Release (E.C.) Take 75 mg by mouth 2 times daily. Active PARoxetine HCl (PAXIL) 20 mg tablet Take 20 mg by mouth daily. Active traZODone (DESYREL) 50 mg tablet Take 50 mg by mouth daily at bedtime. 4 Active tretinoin (RETIN-A) 0.025 % Cream Apply to affected area daily. Active buPROPion HCL (WELLBUTRIN XL) 150 mg Extended Release 24 hour tablet Take 150 mg by mouth daily in the morning. Active lamoTRIgine (LaMICtal) 25 mg tablet Take 25 mg by mouth daily. Active phentermine (ADIPEX P) 37.5 mg tablet Take 37.5 mg by mouth daily before breakfast. Active rOPINIRole (REQUIP) 1 mg tablet Take 1 Tablet by mouth daily. Active zaleplon (SONATA) 10 mg capsule Take 5 mg by mouth daily at bedtime. 4 Active Active Problems Patient Care Coordination No te Formatting of this note migh t be different from the original. Davie Ryder MD - Psychiatrist Problem Noted Date Diagnosed Date Fibroadenoma of left breast 10/07/2019 Gastroesophageal reflux disease 10/21/2018 Calculus of gallbladder with acute on chronic cholecystitis without obstruction 10/21/2018 Major depression 09/07/2018 Morbid obesity with BMI of 45.0-49.9, adult 09/2015 Hyperhidrosis 03/27/2016 Urinary tract infection, site not specified 08/2015 Attention deficit hyperactivity disorder (ADHD) 03/27/2016 ANABELA (generalized anxiety disorder) 03/27/2016 DJD (degenerative joint disease), lumbar 016 Right shoulder pain 03/27/2016 Acute febrile illness 03/27/2016 ADD (attention deficit disorder) 03/27/2016 Bipolar I disorder, current or most recent episode manic, with psychotic features 03/27/2016 Abnormal urinalysis 03/27/2016 Skin tag 03/27/2016 Acute bronchitis 03/27/2016 Metrorrhagia 03/27/2016 Lumbar back pain 03/27/2016 Obesity 03/27/2016 Trichimoniasis 03/27/2016 Exposure to STD 03/27/2016 Herpes simplex 03/27/2016 Bacterial vaginitis 03/27/2016 UTI (urinary tract infection) 03/27/2016 Sinusitis 03/27/2016 Back ache 03/27/2016 Dysuria 03/27/2016 Frequency 03/27/2016 Abdominal mass, LLQ (left lower quadrant) 2015 Conjunctivitis, acute 03/27/2016 Depression 03/27/2016 Resolved Problems Problem Noted Date Diagnosed Date Resolved Date LFT elevation 10/21/2018 10/23/2018 Ventral incisional hernia 03/27/2016 Encounters Date Type Department Care Team Description 10/21/2024 External Device Data [facility] ABSTRACTION Provider, Abstract 10/21/2024 External Device Data [facility] ABSTRACTION Provider, Abstract 10/14/2024 External Device Data [facility] ABSTRACTION Provider, Abstract 09/23/2024 External Device Data [facility] ABSTRACTION Provider, Abstract 09/23/2024 External Device Data [facility] ABSTRACTION Provider, Abstract 09/18/2024 External Device Data ST[facility] ABSTRACTION Provider, Abstract 09/10/2024 External Device Data ST[facility] ABSTRACTION Provider, Abstract 08/26/2024 External Device Data ST[facility] ABSTRACTION Provider, Abstract 08/23/2024 1:26 PM FABRIC PATTERN GRADER - 08/23/2024 3:03 PM FABRIC PATTERN GRADER Hospital Encounter [facility] [address] [place] [address] Aurora Narvaez FNP Rib pain on right side (Primary Dx); Abnormal chest x-ray Discharge Disposition: Home or Self Care 08/23/2024 Travel from Last 3 Months Family History Medical History Relation Name Comments Heart Disease Father Hypertension Father Hypertension Mother Other Mother mental illness Breast Cancer Neg Hx Colon Cancer Neg Hx Ovarian Cancer Neg Hx Relation Name Status Comments Father Mother Social History Tobacco Use Types Packs/Day Years Used Date Smoking Tobacco: Former Smokeless Tobacco: Never Tobacco Cessation:Counseling Given: Not Answered Alcohol Use Standard Drinks/Week Comments No 0 (1 standard drink = 0.6 oz pur e alcohol) Feeling Safe Answer Date Recorded Are you in a relationship wi th someone who hurts you emotionally and/or physically? No 08/23/2024 Comments No Sex and Gender Information Value Date Recorded Sex Assigned at Female 09/18/2024 1:20 AM FABRIC PATTERN GRADER Legal Sex Female 3:14 AM FABRIC PATTERN GRADER Gender Identity Female 09/18/2024 1:20 AM FABRIC PATTERN GRADER Sexual Orientation Straight 09/18/2024 1: 20 AM FABRIC PATTERN GRADER Last Filed Vital Signs Vital Sign Reading Time Taken Comments Blood Pressure 121/86 08/23/2024 1:46 PM FABRIC PATTERN GRADER Pulse 84 08/23/2024 1:46 PM FABRIC PATTERN GRADER Temperature 36.8 C (98.2 F) 08/23/2024 1:46 PM FABRIC PATTERN GRADER Respiratory Rate 14 08/23/2024 1:46 PM FABRIC PATTERN GRADER Oxygen Saturation 97% 08/23/2024 1:46 PM FABRIC PATTERN GRADER Inhaled Oxygen Concentration - - Weight 100.2 kg (221 lb) 08/23/2024 1:46 PM FABRIC PATTERN GRADER Height 162.6 cm (5' 4 ) 08/23/2024 1:46 PM FABRIC PATTERN GRADER Body Mass Index 37.93 08/23/2024 1:46 PM FABRIC PATTERN GRADER Plan of Treatment Health Maintenance Due Date Last Done Comments HEPATITIS B VACCINES (1 of 3 - 19+ 3-dose series) 1989 COLORECTAL SCREENING 11/07/2015 Colorectal Cancer Screening 11/07/2015 FIT-DNA Q 3 years 11/07/2015 FIT/FOBT Q 1 year 11/07/2015 Flex Sig/CT Colonography Q 5 years 11/07/2015 Pre-Diabetes and Diabetes Screening 07/26/2020 07/26/2017 BREAST CANCER SCREENING 11/14/2023 11/14/19 23, 11/04/2021, 09/24/2019, Additional history exists INFLUENZA VACCINE (#1) 2024 3, 06/19/2022, 05/17/2021, Additional history exists COVID-19 Vaccine ( - 2023-2 5 season) 2024 08/03/2021, 02/01/2021 CERVICAL CANCER SCREENING 04/02/2026 04/02/2023 DTAP/TDAP/TD VACCINES (3 - T d or Tdap) 04/20/2033 04/20/2023, 12/27/2020 ZOSTER VACCINE Completed 05/17/2021, 12/27/2020 Medical Devices Implanted Type Area Quality Assurance Monitor Chassis Device Identifier Shelf Expiration Date Model / Serial / Lot Hemostatic Surgicel 2x3in 1953 - [id number] Implanted:Qty : 1 on 10/24/2019 by Ewa Linda MD at [facility] Hemostatic Left: Breast [employer] [id number] 02/24/2024 1953 / / [id number] Plates Back Mesh Bladder Assure Fallopian Tube Procedures Procedure Name Priority Date/Time Associated Diagnosis Comments XR RIBS UNILATERAL RIGHT W PA CHEST Stat 08/23/2024 2:18 PM FABRIC PATTERN GRADER MAMMO DIAGNOSTIC UNI LEFT W OR WO CAD Routine 09/24/2019 9:15 AM FABRIC PATTERN GRADER Abnormal mammogram of left breast HEMOGLOBIN A1C Routine 07/26/2017 10:11 AM FABRIC PATTERN GRADER Obesity, unspecified classification, unspecified obesity type, unspecified whether serious comorbidity present from Last 3 Months or Most Recently Relevant to Health Maintenance Results * XR RIBS UNILATERAL RIGHT W PA CHEST (08/23/2024 2:18 PM FABRIC PATTERN GRADER) Anatomical Region Laterality Modality Chest Computed Radiogr aphy 08/23/2024 2:18 PM FABRIC PATTERN GRADER Impressions 08/23/2024 2:36 PM FABRIC PATTERN GRADER IMPRESSION: 1. No identifiable right rib fracture. 2. A 10 mm faint density overlying the posterior left fourth rib and left lung apex which cannot be identified on prior exams. This could relate to a sclerotic bone lesion or pulmonary nodule. Recommend short-term follow-up PA and lateral chest radiograph or chest CT. DICTATION LOCATION: [address] 08/23/2024 2:36 PM FABRIC PATTERN GRADER XR RIBS UNILATERAL RIGHT W PA CHEST DATE: 08/23/2024 2:18 PM HISTORY: Injury. Right rib pain. COMPARISON: 07/05/2010. FINDINGS: Single view of the chest and five views of the right ribs. No consolidation, pleural effusion or pneumothorax. Heart size is normal. There is a faint density overlying the left posterior fourth rib and left lung apex which could relate to a sclerotic bone lesion or pulmonary nodule. This cannot be identified on the prior exam. Recommend short-term follow-up chest radiographs or CT. Cholecystectomy. Degenerative changes at the right acromioclavicular joint. No identifiable right rib fracture. Procedure Note Andrea Esquivel MD - 08/23/2024 XR RIBS UNILATERAL RIGHT W PA CHEST DATE: 08/23/2024 2:18 PM HISTORY: Injury. Right rib pain. COMPARISON: 07/05/2010. FINDINGS: Single view of the chest and five views of the right ribs. No consolidation, pleural effusion or pneumothorax. Heart size is normal. There is a faint density overlying the left posterior fourth rib and left lung apex which could relate to a sclerotic bone lesion or pulmonary nodule. This cannot be identified on the prior exam. Recommend short-term follow-up chest radiographs or CT. Cholecystectomy. Degenerative changes at the right acromioclavicular joint. No identifiable right rib fracture. IMPRESSION: 1. No identifiable right rib fracture. 2. A 10 mm faint density overlying the posterior left fourth rib and left lung apex which cannot be identified on prior exams. This could relate to a sclerotic bone lesion or pulmonary nodule. Recommend short-term follow-up PA and lateral chest radiograph or chest CT. DICTATION LOCATION: [address] Aurora Narvaez [facility] DIAGNOSTIC IMAGING ORDERABLES Final Result * (ABNORMAL) MAMMO DIAGNOSTIC UNI LEFT W OR WO CAD (09/24/2019 9:15 AM FABRIC PATTERN GRADER) Anatomical Region Laterality Modality Breast Left Mammography 09/24/2019 9:28 AM FABRIC PATTERN GRADER Impressions 09/24/2019 4:31 PM FABRIC PATTERN GRADER IMPRESSION: 9 mm nodule in the lateral left breast may represent a complicated cyst with thick internal debris or possible solid mass. The patient would prefer to undergo definitive diagnosis with biopsy rather than follow-up. RECOMMENDATION: Ultrasound-guided cyst aspiration and possible core biopsy of the 9 mm nodule in the lateral left breast 3:00 position. [facility] 09/24/2019 4:31 PM FABRIC PATTERN GRADER LEFT UNILATERAL FULL-FIELD DIGITAL DIAGNOSTIC MAMMOGRAM WITH CAD LEFT BREAST ULTRASOUND LIMITED 09/24/2019 HISTORY: Abnormal screening mammogram with a small mass identified in the lateral left breast. COMPARISON: January 2013 through August 2019 BREAST COMPOSITION: Scattered fibroglandular densities FINDINGS: A small mass persists in the lateral left breast at the 3:00 position at the mid to posterior depth. Margins are predominantly obscured. No associated microcalcifications are seen. Correlation with ultrasound is recommended for further evaluation. CAD is utilized. High-resolution ultrasound was performed throughout the lateral left breast to include the area of mammographic concern. There is an ovoid mass with a few gentle lobulations in the lateral left breast at the 3:00 position measuring 9 x 8 x 3 mm. Mass has smooth borders and parallel orientation. No definite internal blood flow is seen on Doppler interrogation. The lesion corresponds with the area of mammographic concern. There is no evidence of axillary adenopathy. OVERALL FINAL ASSESSMENT: BI-RADS CATEGORY 4B: Suspicious Findings (Moderate suspicion). Procedure Note Trell Villafana MD - 09/24/2019 LEFT UNILATERAL FULL-FIELD DIGITAL DIAGNOSTIC MAMMOGRAM WITH CAD LEFT BREAST ULTRASOUND LIMITED 09/24/2019 HISTORY: Abnormal screening mammogram with a small mass identified in the lateral left breast. COMPARISON: January 2013 through August 2019 BREAST COMPOSITION: Scattered fibroglandular densities FINDINGS: A small mass persists in the lateral left breast at the 3:00 position at the mid to posterior depth. Margins are predominantly obscured. No associated microcalcifications are seen. Correlation with ultrasound is recommended for further evaluation. CAD is utilized. High-resolution ultrasound was performed throughout the lateral left breast to include the area of mammographic concern. There is an ovoid mass with a few gentle lobulations in the lateral left breast at the 3:00 position measuring 9 x 8 x 3 mm. Mass has smooth borders and parallel orientation. No definite internal blood flow is seen on Doppler interrogation. The lesion corresponds with the area of mammographic concern. There is no evidence of axillary adenopathy. OVERALL FINAL ASSESSMENT: BI-RADS CATEGORY 4B: Suspicious Findings (Moderate suspicion). IMPRESSION: 9 mm nodule in the lateral left breast may represent a complicated cyst with thick internal debris or possible solid mass. The patient would prefer to undergo definitive diagnosis with biopsy rather than follow-up. RECOMMENDATION: Ultrasound-guided cyst aspiration and possible core biopsy of the 9 mm nodule in the lateral left breast 3:00 position. DICTATION LOCATION: Jacki Elbert Mary Nguyen [facility] MAMMO ORDERABLES Final Result * HEMOGLOBIN A1C (07/26/2017 10:11 AM FABRIC PATTERN GRADER) HEMOGLOBIN A1C 5.1 <5.7 % of total Hgb [employer] [facility] Comment: For the purpose of screening for the presence of diabetes: <5.7% Consistent with the absence of diabetes 5.7-6.4% Consistent with increased risk for diabetes (prediabetes) > or =6.5% Consistent with diabetes This assay result is consistent with a decreased risk of diabetes. Currently, no consensus exists regarding use of hemoglobin A1c for diagnosis of diabetes in children. According to [place] Diabetes Association (ADA) guidelines, hemoglobin A1c <7.0% represents optimal control in non- diabetic patients. Different metrics may apply to specific patient populations. Standards of Medical Care in Diabetes(ADA). Test Performed at: [employer] [address] [place] [address] Jason Chaudhary D.O., MPH Blood us Arik Ulloa DO CHEMISTRY ORDERABLES Edited Res ult - Final [employer] [facility] [address] [place] [address] from Last 3 Months or Most Recently Relevant to Health [place] [address] [place] [address] [facility] [place]ICAID [place] [employer] [facility] [place] [address] [facility] Advance Directives For more information, please contact: [phone] * Full Code (Latest Code Status on File) Date Activated Date Inactivated Comments 10/30/2018 9:42 AM 10/30/2018 3:45 PM * Full Code Date Activated Date Inactivated Comments 10/30/2018 7:22 AM 10/30/2018 9:42 AM * Full Code Date Activated Date Inactivated Comments 10/24/2018 7:36 AM 10/24/2018 12:21 PM Care Teams Final Assembly Inspector Relationship Specialty Start Date End Date Marielena iCsneros MD [address] [place] [address] PCP - General Family Practice 06/24/20
--- OUTSIDE RECORDS SUMMARY | 2024-10-30 13:24 | XMS_ITS ---
Author Organization [facility] [employer] [facility] Address [address] [facility] [address] [place] [address] Care Team Providers Care Title Agent Name Role Phone Cathleen Alves Primary Care Provider Ping Christin Jackson Unavailable [phone] REASON FOR VISIT 1 month f/u; last minute cancellation due to an emergency Social History Sex Assigned At : Social History Observation Description Sex Assigned At Female Encounters Encounter Location Date Provider Diagnosis [facility] [place] [id number] [place] [address] 10/06/2024 Christin Joyce Plan Of Treatment Next Appt Details Provider Name:Christin Joyce, 12/05/2024 11:00:00 AM, [address], [address], [place], [address], Progress Notes * MARGARET SANCHEZB: 1 (53 yo F)Acc No.[id number]:10/06/2024 Patient: CLARISSA CORRALES Provider: PATRICE STILLHNP :1970 A ge:53 Y S ex:Female Date:10/06/2024 Address:[address] Pcp:Cathleen AVILA Subjective: * Chief Complaints: * 1 . 1 month f/u; last minute cancellation due to an emergency. * Medical History: Objective: * Vitals: Assessment: Plan: * Treatment: * Billing Information: * Visit Code: * Procedure Codes: * Electronic signature of EARNESTINE Mixon on 10/30/2024 at 01:24 PM MECHANIC FOREMAN Sign off status: Pending * Provider: EARNESTINE STILL Date: 0 10/06/2024 Generated for Edna bo/Teo/Ronny on: 0 10/30/2024 01:24 PM MECHANIC FOREMAN
--- OUTSIDE RECORDS SUMMARY | 2024-10-30 13:24 | XMS_ITS | Data Portability ---
Author Organization [place] - [facility] [email or web address], Main Office Address [address] [place] [address] Care Team Providers Care Kennel Attendant Name Role Phone CATHLEEN TYLER Primary Care Provider CATHLEEN TYLER Referring Provider [phone] JUVENCIO HUERTA Orthopedic Surgeon [phone] JOMAR GARBER Dentist Assessment Encounter Date Assessment [...] weeks for recheck, or sooner as needed. Not available 09/03/2024 11:57:19 Plan of Treatment Reminders Order Date Submit Date Provider Last Modified By Organization Details Last Modified Time Details Appointments Any 5 2024 09:55A M Juvencio Huerta MD Not available Not available Not available Lab ESR (erythr ocyte sedimen tation rate), blood 2024 025 [facility] (Lab), [address] [place], [place] [address] [address] [place] [address], [address], 09/04/2024 18:04:21 C-react rojas protein , quantit ative, serum or plasma 2024 025 [facility] (Lab), [address] [facility] [address], [place], [address], 09/04/2024 18:04:21 wbc diff, auto, blood 2024 025 [facility] (Lab), [facility] [address], [address], 09/04/2024 18:04:20 Referral physica l therapi st referra l - continu e PT 2023 024 [facility], [address] [facility] [address], [place], [address], 06/04/2024 15:29:32 pain managem ent referra l 2023 024 [facility], [address], [place], [address], 07/01/2024 11:36:21 physica l therapi st referra l - continu e 2023 024 [facility], [address], [place], [address], 05/07/2024 14:48:30 Procedures None recorde d. Surgeries None recorde d. Imaging XR, knee, 3 view 2023 024 [email or web address] [place], [address], [place], [address], 05/08/2024 08:22:33 Medication Orders oxycodo ne 5 mg tablet 2023 024 [facility] [address], [address], 06/06/2024 16:19:59 oxycodo ne-acet aminoph en 5 mg-325 mg tablet 2023 024 [email or web address] [address], [address], 06/04/2024 10:16:02 celecox ib 200 mg capsule 2023 024 [email or web address] [address], [address], 06/04/2024 10:14:20 cyclobe nzaprin e 10 mg tablet 2023 024 [email or web address] [address], [address], 06/04/2024 10:14:26 hydroco done 5 mg-acet aminoph en 325 mg tablet 2023 024 [email or web address] [facility] [address] [place], [address], 04/19/2024 15:21:28 Patient TargetsNo targets recorded. Patient InstructionsNo instructions [...] observ ation record ed. [email or web address] [facility] [place] [address] [facility] [address], [place], [address], 05/07/2024 11:40:11 Result Notes None recorded. Problems Name Problem SNOMED Code Status Onset Date Resolution Date Notes Provider Name and Address Organization Details Recorded Time Insomnia 688612460 Active 2022 Not Available [facility] 3 22:21:20 Anxiety 91023199 Active 2022 Not Available [facility] 3 22:21:20 Hyperlipid emia 66336926 Active 2022 Not Available [facility] 3 22:21:20 Hyperglyce elio 08094840 Active 2022 Not Available [facility] 3 22:21:20 Osteoarthr itis of knee 107483468 Active 2022 Not Available [facility] 3 22:21:20 Obese 395815229 Active 2022 Not Available [facility] 3 22:21:20 Pain of bilateral knee joints 1315463651402 04 Active 2022 Not Available [facility] 3 22:21:20 Arthritis of left knee 9742382069645 104 Active 2022 Not Available [facility] 3 22:21:20 Restless legs 89168812 Active 2022 Not Available [facility] 3 22:21:20 Pain of left knee joint 3020130826747 07 Active 2022 Virginia Diego ATC L null, [place] [facility] 3 10:07:27 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 3329897878601 9104 Active 2023 Virginia Diego ATC L null, [place] [facility] 4 10:56:33 Pain of right knee joint 8786854101455 00 Active 2023 PATY Rai, [place] [facility] 4 10:22:59 Lesion of lip 838649223 Active 2023 Gerald Madsion MD [address] [facility], [address], [address] , [facility] 4 12:59:00 Postoperat rojas pain 339918294 Active 2023 Gerald Madison MD [address] [facility], [place] [address], [place], [address] , [facility] 4 16:56:21 Skin tag 400085114 Active 2023 FABIAN Romano [address] [facility], [place] [address], [place], [address] , [facility] 4 12:18:24 Mechanical complicati on of implant 084024118 Active 2024 Virginia Diego ATC L null, [facility] 5 11:11:13 Problem Notes None recorded. Procedures Surgical History Date Name Laterality Status Provider Name and Address Organization Details Recorded Time 02/19/20 24 Knee Surgery completed PATY Alexander [place] - [facility] 02/20/2024 11:34:36 04/25/20 23 Ortho - Cortisone Injection completed Armida Forrester NP [address] [facility], [address], [place], [address], [facility] [employer] [facility] 04/26/2023 21:15:12 04/02/20 23 Date of Last Pap Smear completed Kelsea Garcias [facility] [employer] [facility] 04/20/2023 15:47:50 01/26/20 23 liposuction of subcutaneous tissue completed Kelsea Garcias [facility] [employer] [facility] 04/20/2023 15:42:45 01/26/20 23 abdominoplasty completed Kelsea Garcias [facility] [employer] [facility] 04/20/2023 15:43:32 10/26/19 23 Most Recent Mammogram completed Kelsea Garcias [facility] [employer] [facility] 04/20/2023 15:47:01 02/16/20 22 Gastric bypass incl small i completed Kelsea Garcias [facility] [employer] [facility] 04/20/2023 15:42:03 08/27/19 21 cholecystectomy completed Kelsea Garcias [facility] [employer] [facility] 04/20/2023 15:44:09 tonsillectomy completed YFN Benedict [facility] [employer] [facility] 04/08/2024 15:42:44 excision of lesion of mouth completed YFN Benedict [facility] [employer] [facility] 04/08/2024 15:43:41 Imaging Results Imaging Date Name Status LastModified by Organiz ation Details LastModified Time 05/07/2024 XR, knee, 3 view completed [email or web address] [facility] [place] [address] [facility] [address], [place], [address], 05/07/2024 11:40:11 Procedure Notes None recorded. Medical Equipment None Reported. Allergies Allergen ID Allergen Name Allergen Category Reaction Reaction Severity Criticality Documentation Date Start Date Code Code System Note Provider Name and Address Organization Details Recorded Time 51196 lurasidon e medicatio n itching Not available Not available 04/08/2024 58852 28 RxNorm Leg spasm s, itchi ng. YFN Benedict [facility] 4 15:46:58 90553 Toradol medicatio n Not available Not available Not available 06/04/2024 87186 RxNorm ROSA Pastor, [facility] 4 10:13:43 Medications Name Sig Start Date Stop [...] Not Available Not Available amoxicillin 500 mg capsule TAKE 4 CAPSULES BY MOUTH 1 HOUR PRIOR TO DENTAL APPOINTME NT active Not Available Not Available No t Available cefazolin 1 gram solution for injection [...] 24 hr TAKE 1 TABLET BY MOUTH DAILY active Not Available Not Available No t Available ibuprofen 800 mg tablet TAKE 1 TABLET BY MOUTH EVERY 8 HOURS WITH FOOD NEEDED active Not Available Not Available No t Available tizanidine 4 mg tablet Armida Rojasissac, [employer] 06/04 completed Not Available Not Available Not Available hydrocodone 5 mg-acetamin ophen 325 mg tablet TAKE 1-2 TABS BY MOUTH EVERY 4-6 NEEDED FOR PAIN MAX 8 PER DAY active Not Available Not Available No t Available tretinoin 0.025 % topical cream APPLY A [...] TAKE 1 TABLET BY MOUTH EVERY DAY MUST ADMINISTE R 30 MINUTES BEFORE OR 1-2 [...] tablet 500 MG ORALLY EVERY 12 HOURS 10/28 completed Not Available Not Available Not Available lamotrigine 25 mg tablet TAKE 2 TABLETS BY MOUTH EVERY DAY FOR 90 DAYS active Not Available Not Available No t Available meloxicam 7.5 mg tablet 04/20 completed Not Available Not Available Not Available oxycodone-a cetaminophe n 5 mg-325 mg tablet TAKE 1 TABLET BY MOUTH EVERY 6 HOURS 06/04 completed Not Available Not Available Not Available amoxicillin 875 mg tablet TAKE 1 TABLET EVERY 12 HOURS DAILY active Not Available Not Available No t Available Celebrex 100 mg capsule Take 200 [...] suspension for injection IN OFFICE 07/03 completed [facility]: 0003- 0494- 20 Not Available Not Available [...] Available Not Available Not Available amoxicillin 875 mg-potassiu m clavulanate 125 mg tablet 04/20 completed Not Available Not Available Not Available amoxicillin 500 mg-potassiu m clavulanate 125 mg tablet TAKE 1 TABLET BY MOUTH EVERY 12 HOURS 12/03 completed Not Available Not Available Not Available ropinirole 4 mg tablet TAKE 1 TABLET BY MOUTH EVERY DAY AT BEDTIME active Not Available Not Available No t Available oxycodone 5 mg tablet TAKE 1 [...] extended release TAKE 1 TABLET BY MOUTH ONCE A DAY EVERY MORNING active Not Available Not Available [...] Not Available Not Available No t Available chlorhexidi ne gluconate 0.12 % mouthwash RINSE MOUTH WITH 15ML (1 CAPFUL) FOR 30 SECONDS IN MORNING AND EVENING AFTER BRUSHING, THEN SPIT active Not Available Not Available No t [...] completed Not Available Not Available Not Available Qelbree 200 mg capsule,ext ended release 2 CAPSULE ORAL ONCE A DAY 30 DAYS active Not Available Not Available No t Available Vitals Date Recorded Body height Body mass index (BMI) Body weight Pain severity - 0-10 verbal numeric rating [Score] - Reported Provider Name and Address Organization Details Last Updated DateTime 04/18/2024 162.56 cm 37.9 kg/m2 669164.91 g 5 PATY Alexander [place] - [facility] [employer] [facility] 04/18/2024 09:45:45 Date Recorded Body height Body mass index (BMI) Body weight Body temperature Provider Name and Address Organization Details Last Updated DateTime 05/01/2024 162.56 cm 40 kg/m2 696703.1 g 97.9 [degF] Diane Paniagua, [facility] 05/01/2024 12:00:30 Date Recorded Body height Body mass index (BMI) Body weight Pain severity - 0-10 verbal numeric rating [Score] - Reported Provider Name and Address Organization Details Last Updated DateTime 05/07/2024 162.56 cm 40 kg/m2 165771.02 g 5 Marquita Reynaldo, [facility] 05/07/2024 11:20:53 Date Recorded Body height Body mass index (BMI) Body weight Provider Name and Address Organization Details Last Updated DateTime 06/04/2024 162.56 cm 40 kg/m2 368193.02 g Andie Qiana, [facility] 06/04/2024 10:12:57 Date Recorded Body height Body mass index (BMI) Body weight Provider Name and Address Organization Details Last Updated DateTime 09/03/2024 162.56 cm 48.6 kg/m2 131141.64 g [facility] 09/03/2024 10:37:00 Social History Question Answer Notes LastModified by Organization Details LastModified Time Tobacco Smoking Status Former Smoker COLE Mancini, [facility] 04/20/2023 15:35:56 Do You Have An Advance Directive? No Information not available 04/20/2023 What Is Your Level Of Alcohol Consumption? Occasional Information not available 04/20/2023 Is Blood Transfusion Acceptable In An Emergency? No Bob=s Aminata Information not available 04/20/2023 What Is Your Level Of Caffeine Consumption? Occasional Information not available 04/20/2023 What Is Your Code Status? DNR/DNI Information not available 04/20/2023 In The 14 Days Before Symptom Onset, Have You Had Close Contact With A Laboratory-conf aj ROMAN-19 While That Case Was Ill? No Information [...] Or The Highest Degree You Have Received? 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 No Information not available 04/20/2023 How Many [...] Anxious, Or Unable To Sleep At Night)? [id number] [email or web address] Information not available 07/03/2023 Do You [...] adsorbed 3 completed Kelsea Garcias MA null, [employer] 04/20/2023 17:04:30 MMR 3 completed Cathleen Tyler NP [address] [facility] [address], [address], [employer] 07/05/2023 16:17:44 Influenza, split virus, quadrivalent, PF 3 completed Cathleen Arevalo RN null, [employer] 07/12/2023 09:22:23 Past Encounters Encounter ID Performer Location Encounter Start Date Encounter Closed Date Diagnosis/Indication Diagnosis SNOMED-CT Code Diagnosis ICD10 Code Diagnosis Note [id number] Cathleen Tyler NP [address] [address] 04/20/2023 15:15:45 04/20/2023 16:59:03 Insomnia 015788594 G47.00 Trazodone 50 mg po nightly. Anxiety 50833100 F41.9 Buspar 10 mg po bid.Lexapr o 20 mg po daily. Hyperlipidemia 18598547 E78.5 Lipid panel.Low fat diet. Hyperglycemia 43839320 R 73.9 CMp and A1c. Ex-smoker 9060019 Z87.89 1 stopped aprox 2004. Osteoarthr itis of knee 333664164 M17.9 Referring to ortho Administra tion of tetanus vaccine 283401273 Z23 Obese 989499727 E66.9 pt to check to see if wegovy or saxenda covered on insurance. [id number] Cathleen Tyler NP [address] [address] 04/24/2023 09:38:08 04/24/2023 11:19:31 [id number] Armida Forrester NP [facility] [place] [address] [place] [address] 04/25/2023 15:46:36 04/25/2023 16:39:30 Pain of bilateral knee joints 9576050581 64543 M25.561 M25.770 [id number] Juvencio Huerta MD [facility] [place] [address] [place] [address] 05/23/2023 15:21:52 05/23/2023 15:58:35 Pain of bilateral knee joints 4212543859 30590 M25.561 M25.562 Arthritis of left knee 5547100847 711726 M13.556 [id number] Cathleen Tyler NP [address] [address] 07/03/2023 15:38:25 07/03/2023 16:16:00 History and physical examination, pre-employment 720681127 Z02.1 Encouraged well balanced meals, active lifestyle, and routine vision and dental appts. Hyperlipidemia 06352484 E78.5 Lipid panel.Low fat diet. Hyperglycemia 75206508 R 73.9 Fasting glucose and A1C good. Insomnia 980443637 G47.0 0 ropinirole working and sleeping well. Obese 506340264 E66.9 pt to check to see if wegovy or saxenda covered on insurance. Restless legs 65874663 G 25.81 Ropinirole 1 mg po nightly. Osteoarthr itis of knee 935209240 M17.9 ortho doing knee replacemen t 07/26/23 and then other knee 1 mo later. [id number] Cathleen Tyler NP [address] [address] 07/05/2023 14:54:51 07/05/2023 17:00:08 Administration of measles and mumps and rubella vaccine 56992304 Z23 MMR #1 today 07/05/23#2 must be at least 28 days from the first. [id number] Cathleen Tyler NP [facility] Stephan [address] [place] [address] 07/11/2023 18:06:51 07/12/2023 07:51:08 Administration of influenza vaccine 26731923 Z23 [id number] Armida Forrester NP [facility] [place] [address] [place] [address] 08/03/2023 09:52:22 08/03/2023 10:09:26 Pain of left knee joint 5997788820 53298 M25.595 [id number] Armida Forrester NP [facility] [place] [address] [place] [address] 08/15/2023 09:15:21 08/15/2023 10:00:59 Arthritis of left knee 1613851537 701914 M13.862 Pain of le ft knee joint 7698592592 41779 M25.076 [id number] Armida Forrester NP [facility] [place] [address] [place] [address] 09/12/2023 09:37:35 09/12/2023 10:20:47 Pain of left knee joint 3820611069 79322 M25.921 [id number] Juvencio Huerta MD [facility] [place] 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 [place] [address] 10/31/2023 10:26:54 10/31/2023 11:20:12 Pain of left knee joint 8694322358 17435 M25.203 [id number] MD BETH [facility] [place] [address] [place] [address] 12/12/2023 10:37:35 12/12/2023 11:18:33 Pain of left knee joint 6799668014 93747 M25.092 [id number] Juvencio Huerta MD [facility] [place] [address] [place] [address] 01/29/2024 10:20:08 01/29/2024 11:00:44 Pain of right knee joint 0827504733 11146 M25.751 [id number] Juvencio Huerta MD [facility] [place] [address] [place] [address] 02/27/2024 15:37:06 02/27/2024 16:32:53 Pain of right knee joint 0491963521 59106 M25.314 [id number] PITO Santacruz [facility] [place] [address] [place] [address] 03/14/2024 13:56:23 03/14/2024 14:18:17 Pain of right knee joint 0656274875 78179 M25.561 History of total knee arthroplasty 2408941734 105 Z96.759 [id number] Juvencio Huerta MD [facility] [place] [address] [place] [address] 03/19/2024 11:40:55 03/19/2024 12:06:43 Pain of right knee joint 4310211895 72537 M25.936 [id number] Gerald Madison MD [facility] [place] [address] [place] [address] 04/09/2024 12:43:21 04/10/2024 09:49:12 Lesion of lip 666269739 K13.0 [id number] Armida Forrester NP [facility] [place] [address] [place] [address] 04/18/2024 09:43:26 04/18/2024 10:10:22 History of right total knee replacement 1878422772 323082 Z96.651 Pain of ri ght knee joint 7824647268 15137 M25.296 [id number] FABIAN Romano [facility] [place] [address] [place] [address] 05/01/2024 11:50:44 05/01/2024 12:20:10 Lesion of lip 727099448 K13.0 S/P lip varix excision. Sutures removed without difficulty . No s/s of infection. Skin tag 955294715 L91.8 S/P skin tag removal underneath right eyelid. No s/s of infection. [id number] Juvencio Huerta MD [facility] [place] 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 [place] [address] 06/04/2024 09:55:16 06/04/2024 11:41:40 Pain of right knee joint 3341572581 26776 M25.341 [id number] Juvencio Huerta MD [facility] [place] [address] [place] [address] 09/03/2024 10:32:19 09/03/2024 11:58:51 History of right total knee replacement 2489052025 551646 Z96.651 Mechanical complication of implant 633581975 T85.698A T84.039A Health Concerns Section Related Observation LastModified by Organization Detai ls LastModified Time None Recorded Concern Status LastModified by Organization Details LastModified Time None Recorded Advance Directives Directive N: Payers Encounter Date Sequence Insurance Name Policy Number Policy Bartlett Covered Member ID Bartlett Member ID Guarantor Name 04/18/2024 1 [employer] (MEDICARE REPLACEMENT PPO) [id number] [place] Ruiz [id number] Mile Ruiz 04/18/2024 2 [place] Mile Ruiz [id number] Mile Ruiz 05/01/2024 1 [employer] (MEDICARE REPLACEMENT PPO) [id number] Mile Ruiz [id number] Mile Ruiz 05/01/2024 2 [place] [facility] Mile Ruiz [id number] Mile Ruiz 05/07/2024 1 [employer] (MEDICARE REPLACEMENT PPO) [id number] Mile Ruiz [id number] Mile Ruiz 05/07/2024 2 [place] [facility] Mile Ruiz [id number] Mile Ruiz 06/04/2024 1 [employer] (MEDICARE REPLACEMENT PPO) [id number] Mile Ruiz [id number] Mile Ruiz 06/04/2024 2 [place] [facility] Mile Ruiz [id number] Mile Ruiz 09/03/2024 1 [employer] (MEDICARE REPLACEMENT PPO) [id number] Mile Ruiz [id number] Mile [place]iz 09/03/2024 2 [place] [facility] Mile Ruiz [id number] [place] Notes Date Note Type Note [...] eye. She denies any complaints. Tomasa Melton, BUSINESS SERVICES SALES AGENT [address] [facility] [facility] [address], [place], [address], [facility] 05/01/2024 12:19:02 OBGyn Episode Ob Episode Information Episode Created Date Number of Fetuses Patient Bloodtype Patient rh Status Prepregnancy Weight lbs Domestic Partner Domestic Partner Phone Father Name Site Promotion Agent Status 04/20/20 23 1 CLOSED Fetus Data [...]
--- OUTSIDE RECORDS SUMMARY | 2024-10-30 13:24 | XMS_ITS | Encounter Summary ---
Author Organization [facility] Address [address] [place] [address] Care Team Providers Care Commissioner Of Relocation Services Name Role Phone Charan Love DO Unavailable [phone] Marielena Cisneros MD Primary Care Provider Stephanie Angulo MD Unavailable [phone] Silke Elaine MD Unavailable [phone] Constantine Dhillon MD Unavailable Rossana Anderson DPM Unavailable [phone] Marielena Cisneros MD Unavailable [phone] Andie Moss RMA Unavailable Marielena Cisneros MD Primary Care Provider [phone] Encounter Details Date Type Department Care Team (Late st Contact Info) Description 07/27/2022 [facility] Outpatient Visit [facility] Orthopedics - Radiology [address] [place] [address] Document, Scanned Social History Tobacco Use Types Packs/Day Years Used Date Smoking Tobacco: Former Cigarettes 1 2009 Smokeless Tobacco: Never Alcohol Use Standard Drinks/Week Comments Yes 0 (1 standard drink = 0.6 oz pur e alcohol) very minimal AUDIT-C Answer Date Recorded Q1: How often do you have a drink containing alc ohol? Monthly or less 06/24/2020 Average Number of Drinks Not on file 020 Frequency of Binge Drinking Not on file 05/28 PHQ-2 Answer Date Recorded PHQ2 TOTAL SCORE 0 02/28/2022 Hunger Vital Sign Answer Date Recorded Within the past 12 months, y ou worried that your food would run out before you got the money to buy more. Never true 02/17/20 22 Within the past 12 months, t he food you bought just didn't last and you didn't have money to get more. 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 No 02/15/2022 Is person blind or have serious difficulty seein g? No 02/15/2022 Does person have serious dif ficulty walking/climbing stairs? Yes 02/15/2022 Does person have difficulty dressing/bathing? No 02/15/2022 Does person have difficulty doing errands alone? No 02/15/2022 Cognitive Status Response Date of Assessm ent Does person have difficulty concentrating/remembering/making decisions? 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 documented as of this encounter Care Teams Commissioner Of Relocation Services Relationship Specialty Start Date End Date Marielena Cisneros MD [address] [place] [phone] PCP - General Family Medicine 06/24/20 07/17/24 Marielena Cisneros MD [address] [place] [phone] PCP - [facility] 05/27/22 06/13/24 Marielena Cisneros MD [address] [place] [phone] PCP - General 08/01/24 Charan Love DO Orthopedic Surgery 12/13/16 01/02/23 Stephanie nAgulo MD [address] [id number] Obstetrics and Gynecology 06/24/20 Silke Elaine MD [address] [place], [place] [id number] Pulmonary Disease 08/30/20 01/02/23 [place] [address] [id number] General Surgery 12/08/21 Rossana Anderson DPM [address] [place] [phone] Podiatry 05/11/22 Andie Moss, A Care Coordination Specialist Care Management 01/16/24 03/01/24 documented as of this encounter
--- OUTSIDE RECORDS SUMMARY | 2024-10-30 13:25 | XMS_ITS | Encounter Summary ---
Author Organization [employer] Address [address] [place] [address] Care Team Providers Care Manager Customer Name Role Phone Marielena Cisneros MD Primary Care Provider Encounter Details Date Type Department Care Team (Latest Contact Info) Description 10/14/2002 Outpatient Historical [facility] [place] [address] [place] [address] CHEST PAIN NOS (Primary Dx) Social History Tobacco Use Types Packs/Day Years Used Date Smoking Tobacco: Never Assessed Comments Unknown Sex and Gender Information Value Date Recorded Sex Assigned at Female 09/18/2024 1:20 AM GENERAL OFFICE CLERK Legal Sex Female 3:14 AM GENERAL OFFICE CLERK Gender Identity Female 09/18/2024 1:20 AM GENERAL OFFICE CLERK Sexual Orientation Straight 09/18/2024 1: 20 AM GENERAL OFFICE CLERK documented as of this encounter Plan of Treatment Not on file documented as of this encounter Visit Diagnoses Diagnosis Chest pain, unspecified- Primary documented in this encounter Care Teams Manager Customer Relationship Specialty Start Date End Date Marielena Cisneros MD [address] [place] [address] PCP - General Family Practice 06/24/20 documented as of this encounter
--- OUTSIDE RECORDS SUMMARY | 2024-10-30 13:25 | XMS_ITS | Encounter Summary ---
Author Organization [employer] Address [address] [place] [address] Care Team Providers Care Basting Puller Name Role Phone Marielena Cisneros MD Primary Care Provider Encounter Details Date Type Department Care Team (Late st Contact Info) Description 10/14/2002 Outpatient Historical [facility] [address] [facility] [place] [address] Jason Mosher Social History Tobacco Use Types Packs/Day Years Used Date Smoking Tobacco: Never Assessed Comments Unknown Sex and Gender Information Value Date Recorded Sex Assigned at Female 09/18/2024 1:20 AM HOME CARE COMPANION Legal Sex Female 3:14 AM HOME CARE COMPANION Gender Identity Female 09/18/2024 1:20 AM HOME CARE COMPANION Sexual Orientation Straight 09/18/2024 1: 20 AM HOME CARE COMPANION documented as of this encounter Plan of Treatment Not on file documented as of this encounter Visit Diagnoses Not on filedocumented in this encounter Care Teams Basting Puller Relationship Specialty Start Date End Date Marielena Cisneros MD [address] [place] [phone] PCP - General Family Practice 06/24/20 documented as of this encounter
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
--- OUTSIDE RECORDS SUMMARY | 2024-10-30 13:25 | XMS_ITS | Clinical Summary ---
Author Organization [facility] Address [address] [place] [address] Care Team Providers Care Financial Investigator Name Role Phone Unavailable Primary Care Provider Unavailabl e Social History Tobacco Use Types Packs/Day Years Used Date Smoking Tobacco: Never Assessed Comments Unknown Sex and Gender Information Value Date Recorded Sex Assigned at Female 11/15/2023 8:05 AM CDT Legal Sex Female 3:52 PM CDT Gender Identity Female 11/15/2023 8:05 AM CDT Sexual Orientation Bisexual 11/15/2023 8: 05 AM CDT Plan of Treatment Health Maintenance Due Date Last Done Comments Cervical Cancer Screening Pa p Smear (Age 30 to 64) Every 3 Years 1970 Colorectal Cancer Screening Colonoscopy (10 Years) 1970 Annual Physical 1973 Hepatitis C 1988 DTaP, Tdap and Td Vaccines ( 1 - Tdap) 1989 Hepatitis B Vaccines (1 of 3 - 19+ 3-dose series) 1989 Cervical Cancer Screening Pa p with HPV Testing (Age 30 to 64) Every 5 Years 2000 Cervical Cancer Screening with HPV 2000 Mammogram Screening 2010 Zoster Vaccines (1 of 2) 2020 COVID-19 Vaccine ( - 2023-2 5 season) 2024 Influenza Adult (#1) 2024 PHQ-2 (Physician Jackson) 08/27/2024 Meningococcal B Vaccine Aged Out No l onger eligible based on patient's age to complete this topic Meningococcal Vaccine Aged Out No domingo bharath eligible based on patient's age to complete this topic Pneumococcal Vaccine: Pediat rics (0 to 5 Years) and At-Risk Patients (6 to 64 Years) Aged Out No longer eligible b ased on patient's age to complete this topic RSV Immunizations Under 20 Months Aged Out No longer eligible based on patient's age to complete this [place] [address] [place] [address] [employer]
--- OUTSIDE RECORDS SUMMARY | 2024-10-30 13:25 | XMS_ITS | Encounter Summary ---
Author Organization [facility] Address [address] [place] [address] Care Team Providers Care American History Professor Name Role Phone Marielena Cisneros MD Primary Care Provider Encounter Details Date Type Department Care Team (Latest Contact Info) Description 12/01/2002 Outpatient Historical [facility] [place] [address] [place] [address] SPRAIN OF HAND NOS (Primary Dx) Social History Tobacco Use Types Packs/Day Years Used Date Smoking Tobacco: Never Assessed Comments Unknown Sex and Gender Information Value Date Recorded Sex Assigned at Female 09/18/2024 1:20 AM FISH EGG PACKER Legal Sex Female 3:14 AM FISH EGG PACKER Gender Identity Female 09/18/2024 1:20 AM FISH EGG PACKER Sexual Orientation Straight 09/18/2024 1: 20 AM FISH EGG PACKER documented as of this encounter Plan of Treatment Not on file documented as of this encounter Visit Diagnoses Diagnosis Sprain of hand, unspecified site- Primary documented in this encounter Care Teams American History Professor Relationship Specialty Start Date End Date Marielena Cisneros MD [address] [place] [address] PCP - General Family Practice 06/24/20 documented as of this encounter
--- OUTSIDE RECORDS SUMMARY | 2024-10-30 13:25 | XMS_ITS | Encounter Summary ---
Author Organization [facility] Address [address] [place] [address] Care Team Providers Care Soda Fountain Operator Name Role Phone Marielena Cisneros MD Primary Care Provider Encounter Details Date Type Department Care Team (Late st Contact Info) Description 08/13/2007 Outpatient Historical [facility] [id number] [place] [address] [address] [place] [address] Brigida William MD NO ADDRESS ON FILE Social History Tobacco Use Types Packs/Day Years Used Date Smoking Tobacco: Never Assessed Comments Unknown Sex and Gender Information Value Date Recorded Sex Assigned at Female 09/18/2024 1:20 AM STAPLE LASTER Legal Sex Female 3:14 AM STAPLE LASTER Gender Identity Female 09/18/2024 1:20 AM STAPLE LASTER Sexual Orientation Straight 09/18/2024 1: 20 AM STAPLE LASTER documented as of this encounter Plan of Treatment Not on file documented as of this encounter Visit Diagnoses Not on filedocumented in this encounter Care Teams Soda Fountain Operator Relationship Specialty Start Date End Date Marielena Cisneros MD [facility] [place] [address] PCP - General Family Practice 06/24/20 documented as of this encounter
--- OUTSIDE RECORDS SUMMARY | 2024-10-30 13:25 | XMS_ITS | CONTINUITY OF CARE DOCUMENT ---
Author Name justine fletcher Address Unknown Organization [facility] Address [address] [place] [address] [address] [address] Phone [phone] Care Team Providers Care Process Lead Name Role Phone Phu WHITNEY, Cy Unavailable [phone] Cy Bay MD Unavailable [phone] INSURANCE PROVIDERS Payer name Policy type / Coverage type [employer] party ID [employer] MEDICARE [place] PPO Commercial insurance co [facility] [id number]
--- OUTSIDE RECORDS SUMMARY | 2024-10-30 13:25 | XMS_ITS | Encounter Summary ---
Author Organization [facility] Address [address] [facility] [place] [address] Care Team Providers Care Chair Springer Name Role Phone ArtemioArik gilmore Primary Care Provider [phone] Charan Love DO Unavailable Marielena Cisneros MD Primary Care Provider Stephanie Angulo MD Unavailable [phone] Silke Elaine MD Unavailable Constantine Dhillon MD Unavailable [phone] Constantine Dhillon MD Unavailable Rossana Anderson DPM Unavailable Marielena Cisneros MD Unavailable Andie Moss A Unavailable Marielena Cisneros MD Primary Care Provider Encounter Details Date Type Department Care Team (Late st Contact Info) Description 05/03/2017 [facility] Outpatient Visit [facility] Orthopedics - Radiology [address] [place] [address] Charan Love DO [address] [place] [address] Social History Tobacco Use Types Packs/Day Years Used Date Smoking Tobacco: Former Cigarettes 1 12 Smokeless Tobacco: Never Alcohol Use Standard Drinks/Week Comments No 0 (1 standard drink = 0.6 oz pur e alcohol) Sex and Gender Information Value Date Recorded Sex Assigned at Female 09/27/2020 3:43 PM SALES APPOINTMENT COORDINATOR Gender Identity Female 09/27/2020 3:43 PM SALES APPOINTMENT COORDINATOR Sexual Orientation Straight 09/27/2020 3: 43 PM SALES APPOINTMENT COORDINATOR documented as of this encounter Plan of Treatment Not on file documented as of this encounter Visit Diagnoses Not on filedocumented in this encounter Additional Health Concerns Infection Onset Date Last Indicated Resolved Time COVID-19 Under Investigation 08/03/2021 08/03/2021 08/03/2021 10:58 AM SALES APPOINTMENT COORDINATOR COVID-19 Under Investigation 10/10/2022 10/10/2022 10/10/2022 2:47 PM SALES APPOINTMENT COORDINATOR documented as of this encounter Care Teams Chair Springer Relationship Specialty Start Date End Date Arik Ulloa DO [address] [place] [address] PCP - General Family Medicine 12/06/15 06/23/20 Marielena Cisneros MD [address] [place] [phone] PCP - General Family Medicine 06/24/20 07/17/24 Marielena Cisneros MD [address] [place] [address] PCP - Attributed-[facility] 05/27/22 06/13/24 Marielena Cisneros MD [address] [place] [phone] PCP - General 08/01/24 Charan Love DO [address] [place] [address] Orthopedic Surgery 12/13/16 01/02/23 Stephanie Angulo MD [address] [place] [phone] Obstetrics and Gynecology 06/24/20 [place] [address] [place] [address] Pulmonary Disease 08/30/20 01/02/23 Constantine Dhillon MD [address] [place] [address] [place] [phone] Internal Medicine 12/08/21 12/08/21 [place] [address] [address] General Surgery 12/08/21 Rossana Anderson DPM [address] [place] [phone] Podiatry 05/11/22 Andie Moss, A Care Coordination Specialist Care Management 01/16/24 03/01/24 documented as of this encounter
--- OUTSIDE RECORDS SUMMARY | 2024-10-30 13:25 | XMS_ITS | Patient Health Record ---
Author Organization [facility] As [employer] [facility] Address [address] [facility] [address] [place] [address] Care Team Providers Care Glaze Handler Name Role Phone Cathlene Alves Primary Care Provider Christin Nuñez Unavailable [phone] JamilaSantos Unavailable [phone] Solange Chiu Unavailable [phone] Migration, Provider Unavailable Unavailable Allergies Allergen (clinical drug ingredient) Drug/Non Drug Allergy documented on EMR Reaction Allergy Type Onset Date Status lurasidone Lurasidone HCl Unknown Drug Allergy A ctive Non-steroidal anti-inflammatory agent (FN) NSAIDs Unknown Drug Allergy Active Results Component Value Reference Range Notes DRUG SCREEN, 14 DRUGS (DETEC TIMED), URINE Reviewed date:11/14/2023 12:00:00 AM Interpretation: Performing Lab: Notes/Report: Amphetamine negative Barbiturates negative Benzodiazipine negative Buprenorphine negative Cocaine negative MDMA/Ectasy negative Methadone negative Methamphetamine negative Morphine negative note ALL NEGATIVE Oxycodone negative Phenocyclidine negative THC negative UDT Reviewed date:05/27/2024 07:50:55 PM Interpretation: Performing Lab: Notes/Report: THC N 0 - 50 ng/ml Cocaine N 0 - 300 ng/ml Amphetamine N 0 - 1000 ng/ml Buprenorphine (BUP) N 0 - 10 ng/ml Secobarbital (Bar) N 0 - 300 ng/ml Oxazepam (BZO) N 0 - 300 ng/ml 5-qwyvbcdeze-2,1-xsfywgdw-4, 3-diphenylpyrrolidine (EDDP) N 0 - 300 ng/ml Methamphetamine (MET) N 0 - 1000 ng/ml Methylenedioxymethamphetamine (MDMA) N 0 - 500 ng/ml Morphine (MOP 300/EXF5645) N 0 - 300 ng/ml Methadone (MTD) N 0 - 300 ng/ml Phencyclidine (PCP) N 0 - 25 ng/ml Nortriptyline (TCA) N 0 - 1000 ng/ml Oxycodone N 0 - 300 ng/ml x N 0 - 300 ng/ml Reason For Referral No Information Medications Medication SIG (Take, Route, Frequency, Duration) Notes Start Date End Date Status traZODone HCl 50 MG 1-2 tablet at bedtim e as needed Oral Once a day for 90 days Active Qelbree 200 MG 2 capsule Oral Once a day for 30 days 10/09/2024 12/08/2024 Active PARoxetine HCl 30 MG 1 tablet Orally [...] Once a day for 30 days Active Social History Tobacco Use: Social History Observation Description Date Details (start date - stop date) Former Smoker NA - NA Sex Assigned At : Social History Observation Description Sex Assigned At Female Tobacco Control (Standard) Question Answer Notes Tobacco use: Former smoker Problems Problem Type SNOMED Code ICD Code Onset Dates Problem Status W/U Status Risk Notes Problem Bipolar II disorder (50831338) Bipolar II disorder (F31.81) Active confirmed Problem Generalized anxiety disorder (08585361) Generalized anxiety disorder (F41.1) Active confirmed Problem Insomnia disorder related to another mental disorder (88711342) Insomnia due to other mental disorder (F51.05) Active confirmed Problem Attention deficit hyperactivity disorder (029936579) ADHD (attention deficit hyperactivity disorder), combined type (F90.2) Active confirmed Vital Signs Heart Rate 77 /min 10/09/2024 Height-cm 162.56 cm 10/09/2024 Blood pressure diastolic 67 mm Hg 10/09/2024 Weight-kg 97.52 kg 10/09/2024 Height 64.00 in 10/09/2024 Blood pressure systolic 129 mm Hg 10/09/2024 Weight 215 lbs 10/09/2024 BMI 36.9 kg/m2 10/09/2024 Procedures Procedure Date Ordered Date Performed Result Body Sit e ADHD Testing 05/22/2024 06/03/2024 N/A Encounters Encounter Location Date Provider Diagnosis [place] [address] [place] [address] 11/14/2023 Christin Isiah Bipolar II disorder F31.81 ; Generalized anxiety disorder F41.1 and Insomnia due to other mental disorder F51.05 [place] [address] [place] [address] 11/16/2023 Provider Migration Insomnia due to othe r mental disorder F51.05 [facility] [address] [place] [address] 12/05/2023 Provider Migration Bipolar II disorder F31.81 ; Generalized anxiety disorder F41.1 and Insomnia due to other mental disorder F51.05 [place] [address] [place] [address] 12/14/2023 Christin Isiah Generalized anxiety disorder F41.1 ; Bipolar II disorder F31.81 and Insomnia due to other mental disorder F51.05 [place] [address] [place] [address] 02/13/2024 Christin Isiah Bipolar II disorder F31.81 ; Generalized anxiety disorder F41.1 and Insomnia due to other mental disorder F51.05 [place] [address] [place] [address] 04/14/2024 Christin Isiah Bipolar II disorder F31.81 ; Generalized anxiety disorder F41.1 and Insomnia due to other mental disorder F51.05 [place] [address] [place] [address] 05/22/2024 Christin Isiah Bipolar II disorder F31.81 ; Generalized anxiety disorder F41.1 ; Insomnia due to other mental disorder F51.05 and ADHD (attention deficit hyperactivity disorder), combined type F90.2 [place] [address] [place] [address] 05/27/2024 Santos Marino ADHD (attention deficit hyperactivity disorder), combined type F90.2 [facility] [place] [address] [place] [address] 06/03/2024 Christin Isiha Bipolar II disorder F31.81 ; Generalized anxiety disorder F41.1 ; Insomnia due to other mental disorder F51.05 and ADHD (attention deficit hyperactivity disorder), combined type F90.2 [facility], [facility] [address] [place] [address] 07/16/2024 Christin Isiah Bipolar II disorder F31.81 ; Generalized anxiety disorder F41.1 ; Insomnia due to other mental disorder F51.05 and ADHD (attention deficit hyperactivity disorder), combined type F90.2 [facility] [address] [place] [address] 08/14/2024 Christin Isiah Bipolar II disorder F31.81 ; Generalized anxiety disorder F41.1 ; Insomnia due to other mental disorder F51.05 and ADHD (attention deficit hyperactivity disorder), combined type F90.2 [facility] [address] [place] [address] 09/04/2024 Christin Isiah Bipolar II disorder F31.81 ; Generalized anxiety disorder F41.1 ; Insomnia due to other mental disorder F51.05 and ADHD (attention deficit hyperactivity disorder), combined type F90.2 [facility], [facility] [address] [place] [address] 10/09/2024 Christin Isiah Bipolar II disorder F31.81 ; Generalized anxiety disorder F41.1 ; Insomnia due to other mental disorder F51.05 and ADHD (attention deficit hyperactivity disorder), combined type F90.2 [facility] [address] [place] [address] 11/12/2023 Provider Migration [facility], [facility] [address] [place] [address] 11/16/2023 Provider [facility], [facility] [address] [place] [address] 11/19/2023 Provider [facility], [facility] [address] [place] [address] 11/21/2023 Provider [facility], [facility] [address] [place] [address] 11/27/2023 Provider Migration [facility], [facility] [address] [place] [address] 12/05/2023 [facility], [facility] [address] [place] [address] 12/14/2023 [facility], [facility] [address] [place] [address] 12/25/2023 [facility], [facility] [address] [place] [address] 01/04/2024 Provider [facility], [facility] [address] [place] [address] 01/12/2024 [facility], [facility] [address] [place] [address] 01/13/2024 [facility], [facility] [address] [place] [address] 08/28/2024 [facility] [address] [place] [address] 05/06/2024 Christin [facility], [facility] [address] [place] [address] 05/07/2024 Christin [facility], [facility] [address] [place] [address] 05/07/2024 Christin [facility], [facility] [address] [place] [address] 05/07/2024 [facility], [facility] [address] [place] [address] 05/07/2024 Christin [facility], [facility] [address] [place] [address] 08/25/2024 Christin [facility], [facility] [address] [place] [address] 09/15/2024 Christin [facility], [facility] [address] [place] [address] 09/26/2024 Christin Joyce Assessments Encounter Date Diagnosis (ICD Code) Assessment Notes Treatment Notes Treatment Clinical Notes Section Notes 02/13/2024 Bipolar II disorder (ICD-10 - F31.81) 02/13/2024 Generalized anxiety disorder (ICD-10 - F41.1) Decrease escitalopram to 5mg daily. Patient educated on all medications including potential benefits, side effects, risks. Educated on proper dosing schedule and importance of compliance. Discussed if depression and anxiety get worse to restart 10mg. Current symptoms are largely situational. 04/14/2024 Bipolar II disorder (ICD-10 - F31.81) 05/22/2024 Bipolar II disorder (ICD-10 - F31.81) Lamotrigine [...] side effects persist, please contact the office. 11/14/2023 Bipolar II disorder (ICD-10 - F31.81) 11/14/2023 Generalized anxiety disorder (ICD-10 - F41.1) 11/14/2023 Insomnia due to other mental disorder (ICD-10 - F51.05) 11/16/2023 Insomnia due to other mental disorder (ICD-10 - F51.05) 12/05/2023 Bipolar II disorder (ICD-10 - F31.81) 12/05/2023 Generalized anxiety disorder (ICD-10 - F41.1) 12/05/2023 Insomnia due to other mental disorder (ICD-10 - F51.05) 12/14/2023 Bipolar II disorder (ICD-10 - F31.81) 12/14/2023 Generalized anxiety disorder (ICD-10 - F41.1) 12/14/2023 Insomnia due to other mental disorder (ICD-10 - F51.05) 05/27/2024 ADHD (attention deficit hyperactivity disorder), combined type (ICD-10 - F90.2) 06/03/2024 Bipolar II disorder (ICD-10 - F31.81) Lamotrigine [...] side effects persist, please contact the office. 07/16/2024 Bipolar II disorder (ICD-10 - F31.81) Lamotrigine [...] side effects persist, please contact the office. 08/14/2024 Bipolar II disorder (ICD-10 - F31.81) Lamotrigine [...] side effects persist, please contact the office. 09/04/2024 Bipolar II disorder (ICD-10 - F31.81) Lamotrigine [...] effects persist, please contact the office. 10/09/2024 Bipolar II disorder (ICD-10 - F31.81) [...] 10/09/2024 Generalized anxiety disorder (ICD-10 - F41.1) 09/04/2024 Generalized anxiety disorder (ICD-10 - F41.1) 08/14/2024 Generalized anxiety disorder (ICD-10 - F41.1) 07/16/2024 Generalized anxiety disorder (ICD-10 - F41.1) 06/03/2024 Generalized anxiety disorder (ICD-10 - F41.1) 05/22/2024 Generalized anxiety disorder (ICD-10 - F41.1) 04/14/2024 Generalized anxiety disorder (ICD-10 - F41.1) 02/13/2024 Insomnia due to other mental disorder (ICD-10 - F51.05) 04/14/2024 Insomnia due to other mental disorder (ICD-10 - F51.05) 05/22/2024 Insomnia due to other mental disorder (ICD-10 - F51.05) 05/22/2024 ADHD (attention deficit hyperactivity disorder), combined type (ICD-10 - F90.2) DIAGNOSIS PENDING EVAL 06/03/2024 Insomnia due to other mental disorder (ICD-10 - F51.05) 07/16/2024 Insomnia due to other mental disorder (ICD-10 - F51.05) 08/14/2024 Insomnia due to other mental disorder (ICD-10 - F51.05) 09/04/2024 Insomnia due to other mental disorder (ICD-10 - F51.05) 10/09/2024 Insomnia due to other mental disorder [...] Provider can order medication once approval received. 09/04/2024 ADHD (attention deficit hyperactivity disorder), combined type (ICD-10 - F90.2) Discussed risks/benefits/alt ernatives to atomoxetine, including GI side effects, weight loss, irritability, constipation, sexual dysfunction, increase in blood pressure and liver damage. Patient denies any h/o cardiovascular disease, including hypertension, tachyarrhythmias. Electronic Prior Authorization was requested for Qelbree 200 MG Capsule Extended Release 24 Hour. Provider can order medication once approval received. 08/14/2024 ADHD (attention deficit hyperactivity disorder), combined type (ICD-10 - F90.2) Discussed risks/benefits/alt ernatives to atomoxetine, including GI side effects, weight loss, irritability, constipation, sexual dysfunction, increase in blood pressure and liver damage. Patient denies any h/o cardiovascular disease, including hypertension, tachyarrhythmias. 07/16/2024 ADHD (attention deficit hyperactivity disorder), combined type (ICD-10 - F90.2) Discussed risks/benefits/alt ernatives to atomoxetine, including GI side effects, weight loss, irritability, constipation, sexual dysfunction, increase in blood pressure and liver damage. Patient denies any h/o cardiovascular disease, including hypertension, tachyarrhythmias. 06/03/2024 ADHD (attention deficit hyperactivity disorder), combined type (ICD-10 - F90.2) Discussed risks/benefits/alt ernatives to atomoxetine, including GI side effects, weight loss, irritability, constipation, sexual dysfunction, increase in blood pressure and liver damage. Patient denies any h/o cardiovascular disease, including hypertension, tachyarrhythmias. 04/14/2024 Other Stop escitalopram due to ineffectiveness. Start paroxetine 20mg daily for mood, anxiety. Patient educated on all medications including potential benefits, side effects, risks. Educated on proper dosing schedule and importance of compliance. 05/22/2024 Other Start lamictal 25mg daily for 15 days, then 50mg daily for mood, anxiety. Patient educated on all medications including potential benefits, side effects, risks. Educated on proper dosing schedule and importance of compliance. Schedule for ADHD evaluation to rule in or rule out diagnosis. 06/03/2024 Other ADHD evaluation reviewed, suggestive of diagnosis. Start atomoxetine 25mg daily for two weeks, then 40mg daily. Patient educated on all medications including potential benefits, side effects, risks. Educated on proper dosing schedule and importance of compliance. 07/16/2024 Other Increase Paxil for vasomotor symptoms, depression Increase atomoxetine to 600mg daily Patient educated on all medications including potential benefits, side effects, risks. Educated on proper dosing schedule and importance of compliance. 08/14/2024 Other Decrease Wellbutrin to 150mg due to dizziness Stop Zaleplon due to dizziness start trazodone 50mg qHS PRN for insomnia Patient educated on all medications including potential [...] therapeutic effects of psychotropic medications. -Crisis prevention [facility] 988. 09/04/2024 Other Discontinue atomoxetine due to ineffectiveness. Start Qelbree 200mg daily for ADHD -can consider stimulant if Qelbree not effective. Patient educated on all medications including potential [...] of psychotropic medications. -Crisis prevention hotline 988. 10/09/2024 Other Increase Qelbree to 400mg daily [...] therapeutic effects of psychotropic medications. -Crisis prevention [facility] 988. Plan Of Treatment Next Appt Details Provider Name:Christin Joyce, 12/05/2024 11:00:00 AM, [address], [place], [address], Insurance Providers Payer Name Payer Address Payer Phone Subscriber Number Group Number Insured Name Patient Relationship to Insured Coverage Start Date Coverage End Date [employer] Medicare Replacemen t/Advantag e - Ppo [address] [place] [address] [id number] CLARISSA SANCHEZ Self - patient is the insured Medicaid-[place] l Medicaid [address] [address] [place] [address] [id number] CLARISSA SANCHEZ Self - patient is the insured Medical (General) History Medical History History ICD Code Problems: Bipolar II disorder Generalized anxiety disorder Insomnia disorder related to another men bubba disorder Surgical History Surgery Date(Month/Year) Breast surgery () Removal of gallbladder (12021) Any surgical history Tonsilectomy/adenoids left knee replacement
--- OUTSIDE RECORDS SUMMARY | 2024-10-30 13:25 | XMS_ITS | Encounter Summary ---
Author Organization [facility] Address [address] [place] [address] Care Team Providers Care Tar Kettle Runner Name Role Phone Marielena Cisneros MD Primary Care Provider Encounter Details Date Type Department Care Team (Late st Contact Info) Description 09/23/2004 Outpatient Historical [facility] Services Perinatology [address] [place] [address] Adam Kelly MD [address] [facility] [address] [place] [address] Social History Tobacco Use Types Packs/Day Years Used Date Smoking Tobacco: Never Assessed Comments Unknown Sex and Gender Information Value Date Recorded Sex Assigned at Female 09/18/2024 1:20 AM PIPELINE DISPATCHER Legal Sex Female 3:14 AM PIPELINE DISPATCHER Gender Identity Female 09/18/2024 1:20 AM PIPELINE DISPATCHER Sexual Orientation Straight 09/18/2024 1: 20 AM PIPELINE DISPATCHER documented as of this encounter Plan of Treatment Not on file documented as of this encounter Visit Diagnoses Not on filedocumented in this encounter Care Teams Tar Kettle Runner Relationship Specialty Start Date End Date Marielena Cisneros MD [address] [place] [address] PCP - General Family Practice 06/24/20 documented as of this encounter
--- OUTSIDE RECORDS SUMMARY | 2024-10-30 13:25 | XMS_ITS | Encounter Summary ---
Author Organization [employer] Address [address] [place] [address] Care Team Providers Care Make Up Editor Name Role Phone Marielena Cisneros MD Primary Care Provider Encounter Details Date Type Department Care Team (Latest Contact Info) Description 07/15/2002 Outpatient Historical [facility] [place] Woodall MD ACUTE SINUSITIS NOS (Primary Dx) Social History Tobacco Use Types Packs/Day Years Used Date Smoking Tobacco: Never Assessed Comments Unknown Sex and Gender Information Value Date Recorded Sex Assigned at Female 09/18/2024 1:20 AM MANAGER LOSS PREVENTION Legal Sex Female 3:14 AM MANAGER LOSS PREVENTION Gender Identity Female 09/18/2024 1:20 AM MANAGER LOSS PREVENTION Sexual Orientation Straight 09/18/2024 1: 20 AM MANAGER LOSS PREVENTION documented as of this encounter Plan of Treatment Not on file documented as of this encounter Visit Diagnoses Diagnosis Acute sinusitis, unspecified- Primary documented in this encounter Care Teams Make Up Editor Relationship Specialty Start Date End Date Marielena Cisneros MD [facility] [place] [address] PCP - General Family Practice 06/24/20 documented as of this encounter
--- OUTSIDE RECORDS SUMMARY | 2024-10-30 13:25 | XMS_ITS | Encounter Summary ---
Author Organization [employer] Address [address] [place] [address] Care Team Providers Care Operations Director Name Role Phone Marielena Cisneros MD Primary Care Provider Encounter Details Date Type Department Care Team (Latest Contact Info) Description 05/16/[address] [facility] [place] [address] [place] [address] SPRAIN OF ANKLE NOS (Primary Dx) Social History Tobacco Use Types Packs/Day Years Used Date Smoking Tobacco: Never Assessed Comments Unknown Sex and Gender Information Value Date Recorded Sex Assigned at Female 09/18/2024 1:20 AM IMAGING SERVICES DIRECTOR Legal Sex Female 3:14 AM IMAGING SERVICES DIRECTOR Gender Identity Female 09/18/2024 1:20 AM IMAGING SERVICES DIRECTOR Sexual Orientation Straight 09/18/2024 1: 20 AM IMAGING SERVICES DIRECTOR documented as of this encounter Plan of Treatment Not on file documented as of this encounter Visit Diagnoses Diagnosis Sprain of ankle, unspecified site- Primary documented in this encounter Care Teams Operations Director Relationship Specialty Start Date End Date Marielena Cisneros MD [address] [place] [address] PCP - General Family Practice 06/24/20 documented as of this encounter
--- OUTSIDE RECORDS SUMMARY | 2024-10-30 13:25 | XMS_ITS | Encounter Summary ---
Author Organization [employer] Address [address] [place] [address] Care Team Providers Care Analysis Director Name Role Phone Marielena Cisneros MD Primary Care Provider Encounter Details Date Type Department Care Team (Latest Contact Info) Description 09/22/2004 Outpatient Historical [facility] Fabiana Courtney CURR COND-ANTEPARTUM (Primary Dx) Social History Tobacco Use Types Packs/Day Years Used Date Smoking Tobacco: Never Assessed Comments Unknown Sex and Gender Information Value Date Recorded Sex Assigned at Female 09/18/2024 1:20 AM DEPARTMENT COORDINATOR Legal Sex Female 3:14 AM DEPARTMENT COORDINATOR Gender Identity Female 09/18/2024 1:20 AM DEPARTMENT COORDINATOR Sexual Orientation Straight 09/18/2024 1: 20 AM DEPARTMENT COORDINATOR documented as of this encounter Plan of Treatment Not on file documented as of this encounter Visit Diagnoses Diagnosis Other current maternal conditions classifiable elsewhere, antepartum- Primary documented in this encounter Care Teams Analysis Director Relationship Specialty Start Date End Date Marielena Cisneros MD [address] [place] [address] PCP - General Family Practice 06/24/20 documented as of this encounter
--- OUTSIDE RECORDS SUMMARY | 2024-10-30 13:25 | XMS_ITS | Encounter Summary ---
Author Organization [facility] Address [address] [place] [address] Care Team Providers Care Sales Representative Printing Supplies Name Role Phone Marielena Cisneros MD Primary Care Provider Encounter Details Date Type Department Care Team (Late st Contact Info) Description 09/16/2007 Outpatient Historical [facility] [id number] [place] [address] [address] [place] [address] Brigida William MD NO ADDRESS ON FILE Social History Tobacco Use Types Packs/Day Years Used Date Smoking Tobacco: Never Assessed Comments Unknown Sex and Gender Information Value Date Recorded Sex Assigned at Female 09/18/2024 1:20 AM NURSE QUALITY Legal Sex Female 3:14 AM NURSE QUALITY Gender Identity Female 09/18/2024 1:20 AM NURSE QUALITY Sexual Orientation Straight 09/18/2024 1: 20 AM NURSE QUALITY documented as of this encounter Plan of Treatment Not on file documented as of this encounter Visit Diagnoses Not on filedocumented in this encounter Care Teams Sales Representative Printing Supplies Relationship Specialty Start Date End Date Marielena Cisneros MD [facility] [place] [address] PCP - General Family Practice 06/24/20 documented as of this encounter
--- OUTSIDE RECORDS SUMMARY | 2024-10-30 13:25 | XMS_ITS | Encounter Summary ---
Author Organization [facility] Address [address] [place] [address] Care Team Providers Care Hot Plate Press Operator Name Role Phone Marielena Cisneros MD Primary Care Provider Encounter Details Date Type Department Care Team (Late st Contact Info) Description 08/13/2007 Outpatient Historical [facility] [id number] [place] [address] [address] [place] [address] Brigida William MD NO ADDRESS ON FILE Social History Tobacco Use Types Packs/Day Years Used Date Smoking Tobacco: Never Assessed Comments Unknown Sex and Gender Information Value Date Recorded Sex Assigned at Female 09/18/2024 1:20 AM COLLECTIONS ASSOCIATE Legal Sex Female 3:14 AM COLLECTIONS ASSOCIATE Gender Identity Female 09/18/2024 1:20 AM COLLECTIONS ASSOCIATE Sexual Orientation Straight 09/18/2024 1: 20 AM COLLECTIONS ASSOCIATE documented as of this encounter Plan of Treatment Not on file documented as of this encounter Visit Diagnoses Not on filedocumented in this encounter Care Teams Hot Plate Press Operator Relationship Specialty Start Date End Date Marielena Cisneros MD [facility] [place] [address] PCP - General Family Practice 06/24/20 documented as of this encounter
--- OUTSIDE RECORDS SUMMARY | 2024-10-30 13:25 | XMS_ITS | Patient Health Summary ---
Author Organization [facility] Address [address] [place] [address] Care Team Providers Care Licensed Insurance Sales Agent Name Role Phone Stephanie Angulo MD Unavailable [phone] Constantine Dhillon MD Unavailable [phone] Rossana Anderson DPM Unavailable [phone] Marielena Cisneros MD Primary Care Provider [phone] Note from [facility],non-owned Affiliates and Associated Physician Practices is amultiple site organization consisting of ambulatory clinics and hospital sitesin [place], [place] and [place]. This disclosure is being madepursuant to the Care Everywhere program and may not contain all information available regarding this patient. Last updated 18.[facility] Allergies * Nsaids(Other) Medications * Be aware that medications may not be up to date on this document. Alwaysverify current medications with the patient. * escitalopram (LEXAPRO) 5 MG tablet(Started 12/27/2021) 2 (two) tablets once daily * ARIPiprazole (Abilify) 5 MG tablet Take 1 (one) tablet by mouth once daily * busPIRone (Buspar) 10 MG tablet(Started 11/11/2022) Take 1 (one) tablet by mouth 3 times daily * mirtazapine (Remeron) 15 MG tablet(Started 12/13/2022) Take 1 (one) tablet by mouth at bedtime * phentermine (Ionamine) 15 MG capsule(Started 01/01/2023) Take 1 (one) capsule by mouth daily before breakfast Active Problems Problem Noted Date Diagnosed Date S/P gastric bypass 02/15/2022 Psychophysiological insomnia 09/27/2020 BMI 50.0-59.9, adult 09/23/2020 Moderate episode of recurrent major depressive d isorder 09/23/2020 Essential hypertension 06/24/2020 Fibroadenoma of left breast 10/07/2019 Gastroesophageal reflux disease 10/21/2018 Morbid obesity 04/28/2016 ANABELA (generalized anxiety disorder) 03/27/2016 Herpes simplex 03/27/2016 DJD (degenerative joint disease), lumbar 016 OA (osteoarthritis) 07/05/2010 Chronic low back pain 03/08/2010 Migraine 06/30/2008 Resolved Problems Problem Noted Date Diagnosed Date Resolved Date Current mild episode of hermilo r depressive disorder, unspecified whether recurrent 09/23/2020 09/27/2020 Major depression 03/27/2016 09/27/2020 Menometrorrhagia 11/26/2013 06/24/2020 Post-operative state 09/01/2010 020 Tobacco use disorder 06/30/2008 021 Lumbar disc disease 06/24/20 20 Immunizations * COVID [employer] PRIMARY 18+YR(Given 02/01/2021) * Covid [employer] primary monovalent 12+ yr 0.3mL Purple cap(Given 08/03/2021) * INFLUENZA VACCINE, QUADR. (FLUZONE; FLULAVAL; FLUARIX; AFLURIA QUADRIVALENT; 6MO+), 0.5 ML (IIV4)(Given 05/17/2021) * TDAP, HISTORIC VACCINE(Given 12/27/2020) * Zoster Hzv Vacc Recombinant Inj Im(Given 05/17/2021, 12/27/2020) * iNFLUENZA VACCINE, RECOM-TONG, QUADR. (FLUBLOCK QUADRIVALENT; 18Y+) (RIV4)(Given 06/19/2022) Social History Tobacco Use Types Packs/Day Years Used Date Smoking Tobacco: Former Cigarettes 1 12 1 8 - 2009 Smokeless Tobacco: Never Tobacco Cessation:Counseling Given: Not Answered Alcohol Use Standard Drinks/Week Comments Yes 0 (1 standard drink = 0.6 oz pur e alcohol) very minimal AUDIT-C Answer Date Recorded Q1: How often do you have a drink containing alc ohol? Monthly or less 06/24/2020 Average Number of Drinks Not on file 020 Frequency of Binge Drinking Not on file 05/28 PHQ-2 Answer Date Recorded PHQ2 TOTAL SCORE 0 04/02/2023 Hunger Vital Sign Answer Date Recorded Within [...] Sex Assigned at Female 09/27/2020 3:43 PM RESIDENCE MANAGER Gender Identity Female 09/27/2020 3:43 PM RESIDENCE MANAGER Sexual Orientation Straight 09/27/2020 3: 43 PM RESIDENCE MANAGER Last Filed Vital Signs Vital Sign Reading Time Taken Comments Blood Pressure 120/78 04/02/2023 1:53 PM CDT Pulse 76 01/03/2023 2:19 PM CDT Temperature 36.9 C (98.4 F) 01/01/2023 9:32 AM CDT Respiratory Rate 16 10/10/2022 2:22 PM RESIDENCE MANAGER Oxygen Saturation 99% 01/03/2023 2:19 PM CDT Inhaled Oxygen Concentration - - Weight 108.4 kg (239 lb) 04/02/2023 1:53 PM CDT Height 162.6 cm (5' 4 ) 04/02/2023 1:53 PM CDT Body Mass Index 41.02 04/02/2023 1:53 PM CDT Procedures * PAP IG LB RFLX HPV APTIMA ASCU(Performed 04/02/2023) Performed for Screening for cervical cancer * MAMMO BILAT SCREENING W COOKIE(Performed 11/13/2022) Performed for Encounter for screening mammogram for breast cancer * XR CHEST 2VW(Performed 10/10/2022) Performed for Acute cough, Dyspnea on exertion * SARS-COV-2 (COVID-19)+INFLU A+B AG (AMB) POC(Performed 10/10/2022) Performed for Acute cough, Fatigue, unspecified type, Dyspnea on exertion * VITAMIN D 25-HYDROXY(Performed 09/13/2022) Performed for Morbid obesity (HCC), Bariatric surgery status, Vitamin deficiency, Vitamin D deficiency, Postsurgical malabsorption (HCC) * IRON + TIBC PANEL(Performed 09/13/2022) Performed for Morbid obesity (HCC), Bariatric surgery status, Vitamin deficiency, Vitamin D deficiency, Postsurgical malabsorption (HCC) * FOLATE(Performed 09/13/2022) Performed for Morbid obesity (HCC), Bariatric surgery status, Vitamin deficiency, Vitamin D deficiency, Postsurgical malabsorption (HCC) * ZINC BLOOD(Performed 09/13/2022) Performed for Morbid obesity (HCC), Bariatric surgery status, Vitamin deficiency, Vitamin D deficiency, Postsurgical malabsorption (HCC) * VITAMIN K1(Performed 09/13/2022) Performed for Morbid obesity (HCC), Bariatric surgery status, Vitamin deficiency, Vitamin D deficiency, Postsurgical malabsorption (HCC) * VITAMIN E(Performed 09/13/2022) Performed for Morbid obesity (HCC), Bariatric surgery status, Vitamin deficiency, Vitamin D deficiency, Postsurgical malabsorption (HCC) * VITAMIN B12(Performed 09/13/2022) Performed for Morbid obesity (HCC), Bariatric surgery status, Vitamin deficiency, Vitamin D deficiency, Postsurgical malabsorption (HCC) * VITAMIN B1(Performed 09/13/2022) Performed for Morbid obesity (HCC), Bariatric surgery status, Vitamin deficiency, Vitamin D deficiency, Postsurgical malabsorption (HCC) * VITAMIN A(Performed 09/13/2022) Performed for Morbid obesity (HCC), Bariatric surgery status, Vitamin deficiency, Vitamin D deficiency, Postsurgical malabsorption (HCC) * PTH INTACT(Performed 09/13/2022) Performed for Morbid obesity (HCC), Bariatric surgery status, Vitamin deficiency, Vitamin D deficiency, Postsurgical malabsorption (HCC) * MAGNESIUM BLOOD(Performed 09/13/2022) Performed for Morbid obesity (HCC), Bariatric surgery status, Vitamin deficiency, Vitamin D deficiency, Postsurgical malabsorption (HCC) * FERRITIN(Performed 09/13/2022) Performed for Morbid obesity (HCC), Bariatric surgery status, Vitamin deficiency, Vitamin D deficiency, Postsurgical malabsorption (HCC) * COPPER BLOOD(Performed 09/13/2022) Performed for Morbid obesity (HCC), Bariatric surgery status, Vitamin deficiency, Vitamin D deficiency, Postsurgical malabsorption (HCC) * COMPREHENSIVE METABOLIC PANEL(Performed 09/13/2022) Performed for Morbid obesity (HCC), Bariatric surgery status, Vitamin deficiency, Vitamin D deficiency, Postsurgical malabsorption (HCC) * CBC W/O DIFFERENTIAL(Performed 09/13/2022) Performed for Morbid obesity (HCC), Bariatric surgery status, Vitamin deficiency, Vitamin D deficiency, Postsurgical malabsorption (HCC) * HI INCISE FINGER TENDON SHEATH(Performed 07/31/2022) Performed for Trigger finger of left thumb * EGD(Performed 04/07/2022) * HI ED EGD FLEX TRANSORAL DX(Performed 04/07/2022) * FL UGI SERIES(Performed 02/16/2022) Performed for S/P gastric bypass * GLUCOSE - POINT OF CARE(Performed 02/16/2022) * VITAMIN D 25-HYDROXY(Performed 02/16/2022) * CBC W AUTO DIFFERENTIAL(Performed 02/16/2022) * BASIC METABOLIC PANEL (CALCIUM TOTAL)(Performed 02/16/2022) * GLUCOSE - POINT OF CARE(Performed 02/15/2022) * GLUCOSE - POINT OF CARE(Performed 02/15/2022) * GLUCOSE - POINT OF CARE(Performed 02/15/2022) * ENDOTRACHEAL TUBE NOTE(Performed 02/15/2022) * LAPAROSCOPIC GASTRIC BYPASS(Performed 02/15/2022) * GLUCOSE - POINT OF CARE(Performed 02/15/2022) * POTASSIUM BLOOD(Performed 02/15/2022) Performed for Preoperative examination * HCG URINE QUALITATIVE(Performed 02/15/2022) Performed for Preoperative examination * EKG 12-LEAD(Performed 02/07/2022) Performed for Preoperative examination * VITAMIN B12(Performed 02/07/2022) Performed for Preoperative examination * VITAMIN B1(Performed 02/07/2022) Performed for Preoperative examination * CBC W AUTO DIFFERENTIAL(Performed 02/07/2022) Performed for Preoperative examination * LIPID PROFILE(Performed 12/08/2021) Performed for Hypercholesteremia * COMPREHENSIVE METABOLIC PANEL(Performed 12/08/2021) Performed for Impaired fasting glucose * HEMOGLOBIN A1C(Performed 12/08/2021) Performed for Impaired fasting glucose * LIPID PROFILE(Performed 12/08/2021) Performed for Preoperative testing * HELICOBACTER PYLORI UREASE (STL)(Performed 11/18/2021) Performed for Esophagitis * HI ED EGD FLEX TRANSORAL DX(Performed 11/18/2021) * EGD(Performed 11/18/2021) Performed for Preop examination, Morbid obesity (HCC) * MAMMO BILAT SCREENING W COOKIE(Performed 11/04/2021) Performed for Screening mammogram for breast cancer * FL UGI SERIES(Performed 10/12/2021) Performed for Preop examination, Morbid obesity (HCC) * SARS-COV-2 (COVID-19)+INFLU A+B AG (AMB) POC(Performed 08/03/2021) Performed for Cough, Nasal congestion * VAS BILATERAL VENOUS DUPLEX LE(Performed 02/25/2021) Performed for Bilateral leg edema * COMPREHENSIVE METABOLIC PANEL(Performed 02/02/2021) Performed for Bilateral lower extremity edema * POLYSOMNOGRAPHY 4 OR MORE PARAMETERS WITH CPAP(Performed 12/15/2020) Performed for Suspected sleep apnea, Sleep disturbance, Hypersomnia, Snoring, Insufficient sleep syndrome, Insomnia, unspecified type, Inadequate sleep hygiene, Restless legs syndrome (RLS), Morbid obesity (HCC), Memory deficit, Depressed mood, Benign essential HTN * COLOGUARD TEST(Performed 12/06/2020) Performed for Screening for colon cancer * IMAGING/RADIOLOGY/XRAY RESULTS ORDER(Performed 10/21/2020) * HIV-1 RNA QUALITATIVE RFLXD(Performed 07/30/2020) Performed for Encounter for screening for HIV * HIV-1 HIV-2 ANTIBODY W REFLX(Performed 07/30/2020) Performed for Encounter for screening for HIV * HCV COMMENT(Performed 07/30/2020) Performed for Need for hepatitis C screening test * TSH(Performed 07/30/2020) Performed for Morbid obesity (HCC) * HEPATITIS C AB W RFLX VERIFICATION(Performed 07/30/2020) Performed for Need for hepatitis C screening test * COMPREHENSIVE METABOLIC PANEL(Performed 07/30/2020) Performed for Morbid obesity (HCC) * LIPID PROFILE(Performed 07/30/2020) Performed for Morbid obesity (HCC) * TISSUE SPECIMEN A(Performed 05/07/2019) * TISSUE SPECIMEN A(Performed 05/07/2019) * PATHOLOGY SPECIMEN(Performed 05/07/2019) Performed for Cervical high risk HPV (human papillomavirus) test positive * PATHOLOGY SPECIMEN(Performed 05/07/2019) Performed for Cervical high risk HPV (human papillomavirus) test positive * VAGINITIS PLUS (BV CA CT NG TRICH)(Performed 04/22/2019) Performed for Acute vaginitis * PAP LB HPV HR+LR(Performed 04/22/2019) Performed for Well woman exam * US DUPLEX LOCAL EXTREM VEINS LMT(Performed 01/12/2017) * IMAGING/RADIOLOGY/XRAY RESULTS ORDER(Performed 01/12/2017) * MRI KNEE LEFT WO CONTRAST(Performed 07/11/2016) Performed for Acute pain of left knee * XR KNEE LEFT 4VW OR MORE(Performed 06/28/2016) Performed for Acute pain of left knee * XR SHOULDER RIGHT 2VW OR MORE(Performed 12/29/2015) Performed for Acute pain of right shoulder * PATHOLOGY TISSUE EXAM (STL)(Performed 11/26/2013) Performed for Menometrorrhagia, Migraine, Tobacco use disorder, Chronic low back pain, Lumbar disc disease, OA (osteoarthritis), Post-operative state * ABLATION ENDOMETRIAL/UTERINE (TRANSCERVICAL)(Performed 11/26/2013) Performed for Ovarian bleed * HCG URINE QUALITATIVE - POINT OF CARE(Performed 11/26/2013) * INFLUENZA A+B - POINT OF CARE (AMB)(Performed 09/11/2011) Performed for Cough, Fever * CT ABDOMEN PELVIS W CONTRAST(Performed 07/06/2011) Performed for Abdominal mass * BUN/CREATININE RATIO W/EGFR(Performed 06/30/2011) Performed for Abdominal mass * XR LUMBAR SPINE 2 OR 3VW(Performed 05/09/2011) Performed for Aftercare following surgery * CT LUMBAR SPINE WO CONTRAST(Performed 01/30/2011) Performed for Post-operative state * XR LUMBAR SPINE 2 OR 3VW(Performed 01/06/2011) Performed for S/P lumbar fusion * COMPREHENSIVE METABOLIC PANEL(Performed 07/05/2010) Performed for Pre-op exam * CBC W AUTO DIFFERENTIAL(Performed 07/05/2010) Performed for Pre-op exam * EKG 12-LEAD(Performed 07/05/2010) Performed for Pre-op exam * XR CHEST 2VW(Performed 07/05/2010) Performed for Pre-op exam * IMAGING/RADIOLOGY/XRAY RESULTS ORDER(Performed 03/15/2010) * MONONUCLEOSIS SCREEN - POINT OF CARE(Performed 11/11/2009) Performed for Acute Pharyngitis * STREP A SCREEN - POINT OF CARE (AMB)(Performed 11/11/2009) Performed for Acute Pharyngitis * XR CHEST 2VW(Performed 11/11/2009) Performed for Acute Bronchitis, SOB (Shortness of Breath), Tobacco Use Disorder * GROSS + MICRO EXAM(Performed 06/18/1998) Results * PAP IG LB RFLX HPV APTIMA ASCU (04/02/2023 2:10 PM CDT) Diagnosis [facility] INSURANCE BILL Comment:NEGATIVE FOR INTRAEP ITHELIAL LESION OR MALIGNANCY. Specimen Adequacy [facility] INSURANCE BILL Comment: Satisfactory for evaluation. Endocervical and/or squamous metaplastic cells (endocervical component) are present. Clinician Provided ICD10 [facility] INSURANCE BILL Comment: Z01.419 Z12.4 Performed by [facility] INSURANCE BILL Comment:Nasima Kennedy hnologist (ASCP) Comment . [facility] INSURANCE BILL Note [facility] INSURANCE BILL Comment: The Pap smear is a screening test designed to aid in the detection of premalignant and malignant conditions of the uterine cervix. It is not a diagnostic procedure and should not be used as the sole means of detecting cervical cancer. Both false-positive and false-negative reports do occur. . IGLBP CPT Code Automation [facility] INSURANCE BILL Comment: This liquid based ThinPrep(R) pap test was screened with the use of an image guided system. Note [facility] INSURANCE BILL Comment: The HPV DNA reflex criteria were not met with this specimen result therefore, no HPV testing was performed. . Pathology/Cytolog y ENTIRE ENDOCERVIX / Unknown 04/02/2023 2:10 PM CDT 04/02/2023 Narrative [facility] INSURANCE BILL - 04/06/2023 11:11 AM CDT No. of containers..01 ThinPrep Vial Resulting Agency Comment Lab Testing performed at: [address] [phone] Marielena Cisneros MD LAB - PATHOLOGY/CYT OLOGY ORDERABLES [facility] INSURANCE BILL [address] [place] [address] * MAMMO BILAT SCREENING W COOKIE (11/13/2022 3:02 PM CDT) Only the most recent of2 resultswithin the time period is included. Anatomical Region Laterality Modality Breast Bilateral Mammography 11/14/2022 11:0 7 AM CDT Impressions 11/14/2022 11:07 AM CDT : No mammographic evidence of malignancy. RECOMMENDATION: Annual screening mammography in 1 year pending no interval breast concerns. OVERALL ASSESSMENT: BI-RADS CATEGORY 1: NEGATIVE. > Interpreting Provider: Adalid Mendez MD on 11/14/2022 11:07 AM Narrative 11/14/2022 11:07 AM CDT EXAMINATION: DIGITAL MAMMO BILAT SCREENING W COOKIE DATE: 11/13/2022 HISTORY: Screening. COMPARISON: 2021 TECHNIQUE: Bilateral synthetic 2-D (C-view) digital mammogram images and bilateral digital breast tomosynthesis were obtained in the craniocaudal and mediolateral oblique projections. Computer-aided detection (CAD) was utilized. BREAST PARENCHYMAL COMPOSITION: Category A: The breasts are almost entirely fatty. FINDINGS: There are no suspicious findings or evidence of malignancy on mammography. Marielena Cisneros MD MAMMO ORDERABLES * XR CHEST 2VW (10/10/2022 3:05 PM RESIDENCE MANAGER) Only the most recent of3 resultswithin the time period is included. Anatomical Region Laterality Modality Chest Radiographic Sadie ging 10/10/2022 4:26 PM RESIDENCE MANAGER Impressions 10/10/2022 4:27 PM RESIDENCE MANAGER IMPRESSION: No acute cardiopulmonary abnormalities. > Interpreting Provider: Driss Duff MD on 10/10/2022 4:27 PM Narrative 10/10/2022 4:27 PM RESIDENCE MANAGER PROCEDURE: XR CHEST 2VW, DATE/TIME OF EXAM: 10/10/2022 3:05 PM, LOCATION [facility] INDICATION: R05.1: Acute cough R06.09: Other forms of dyspnea ADDITIONAL CLINICAL INFORMATION: Ordering Provider Reason For Exam: Technologist Note: Additional: COMPARISON: None. FINDINGS: The cardiomediastinal silhouette is within normal limits. There are no focal infiltrates effusions or vascular congestion. There are some mild degenerative endplate changes in the mid to lower thoracic spine. Procedure Note Driss Duff MD - 10/10/2022 PROCEDURE: XR CHEST 2VW, DATE/TIME OF EXAM: 10/10/2022 3:05 PM, LOCATION [facility] INDICATION: R05.1: Acute cough R06.09: Other forms of dyspnea ADDITIONAL CLINICAL INFORMATION: Ordering Provider Reason For Exam: Technologist Note: Additional: COMPARISON: None. FINDINGS: The cardiomediastinal silhouette is within normal limits. There are no focal infiltrates effusions or vascular congestion. There are some mild degenerative endplate changes in the mid to lower thoracic spine. IMPRESSION: No acute cardiopulmonary abnormalities. > Interpreting Provider: Driss Duff MD on 10/10/2022 4:27 PM Marielena Cisneros MD DIAGNOSTIC IMAGING ORDERABLES * SARS-COV-2 (COVID-19)+INFLU A+B AG (AMB) POC (10/10/2022 2:47 PM RESIDENCE MANAGER) Only the most recent of2 resultswithin the time period is included. Influenza A Antigen Rapid Negative Negative [facility] Influenza B Antigen Rapid Negative Negative [facility] SARS-CoV-2 Ag Negative Negative [facility] COVID Internal Control Acceptable Acceptable [facility] OC Lot # [id number] [facility] Expiration Date 05/03/2023 [facility] Instrument Serial Number [id number] [facility] Microbiology SPECIMEN FROM NASAL FOSSAE / Unknown 10/10/2022 2:47 PM RESIDENCE MANAGER Narrative [facility] - 10/10/2022 2:47 PM RESIDENCE MANAGER SARS-CoV-2 antigen testing is authorized for use with nasal (Veritor, BinaxNOW, or Annalisa) or nasopharyngeal (Annalisa) swabs collected from individuals who are suspected of COVID-19 infection by their healthcare provider within the first five days of onset of symptoms. False-positive SARS-CoV-2 test results are more likely to occur when disease prevalence is low (less than 1%). False-negative SARS-CoV-2 test results are more likely to occur when disease prevalence is high (greater than 10%). This test has been authorized by the Food and Drug administration (FDA)under an Emergency Use Authorization (EUA). This test is only authorized for the duration of time the declaration that circumstances exist justifying the authorization of emergency use of in vitro diagnostic tests for detection of SARS-CoV-2 virus and/or diagnosis of COVID-19 infection under section 564(b)(1) of the Act, 21 U.S.C 360bbb-3 (b)(1), unless the authorization is terminated or revoked sooner. Fact Sheets for this EUA assay are available upon request. Negative results should be treated as presumptive and confirmation with a molecular assay, if necessary, for patient management, may be performed. Negative results do not rule out COVID-19 and should not be used as the sole basis for treatment or patient management decisions, including infection control decisions. Negative results should be considered in the context of a patient's recent exposures, history and the presence of clinical signs and symptoms consistent with COVID-19. Marielena Cisneros MD LAB - POINT OF CARE ORDERABLES [facility] [address] [phone] * VITAMIN D 25-HYDROXY (09/13/2022 9:21 AM RESIDENCE MANAGER) Only the most recent of2 resultswithin the time period is included. Vitamin D, 25 Hydroxy 34.2 30.0 - 100.0 ng/mL [facility] INSURANCE BILL Comment: Vitamin D deficiency has been defined by the [place] of Medicine and an Endocrine Society practice guideline as a level of serum 25-OH vitamin D less than 20 ng/mL (1,2). The Endocrine Society went on to further define vitamin D insufficiency as a level between 21 and 29 ng/mL (2). 1. IOM ([place] of Medicine). 2010. Dietary reference intakes for calcium and D. [place]: The National Academies Press. 2. Checo MF, Oscar NC, Figueroa TONG, et al. Evaluation, treatment, and prevention of vitamin D deficiency: an Endocrine Society clinical practice guideline. JCEM. 2010; 96(7):1911-30. Blood BLOOD SPECIMEN / Unknown 09/13/2022 9:21 AM RESIDENCE MANAGER 09/13/2022 Narrative Resulting Agency Comment Lab Testing performed at: [facility] [address] [facility] [id number] Madeline Anglin [facility] ORDERABLES Performing Organization Address City/[facility]/ZIP Co de Phone Number [facility] INSURANCE BILL [address] [place] [address] * IRON + TIBC PANEL (09/13/2022 9:21 AM RESIDENCE MANAGER) TIBC 315 250 - 450 ug/dL [facility] INSURANCE BILL UIBC 179 131 - 425 ug/dL [facility] INSURANCE BILL Iron 136 27 - 159 ug/dL [facility] INSURANCE BILL Iron Saturation 43 15 - 55 % [facility] INSURANCE BILL Blood BLOOD SPECIMEN / Unknown 09/13/2022 9:21 AM RESIDENCE MANAGER 09/13/2022 Narrative Resulting Agency Comment Lab Testing performed at: [facility] [address] [facility] [id number] Madeline Anglin [facility] ORDERABLES Performing Organization Address [facility] de Phone Number [facility] INSURANCE BILL [address] [place] [address] * FOLATE (09/13/2022 9:21 AM RESIDENCE MANAGER) Pathologist [facility] Folate 5.8 >3.0 ng/mL [facility] INSURANCE BILL Comment: A serum folate concentration of less than 3.1 ng/mL is considered to represent clinical deficiency. Blood BLOOD SPECIMEN / Unknown 09/13/2022 9:21 AM RESIDENCE MANAGER 09/13/2022 Narrative Resulting Agency Comment Lab Testing performed at: [facility] [address] [facility] [phone] Madeline Anglin [facility] TRY ORDERABLES Performing Organization Address City/[facility] Co de Phone Number [facility] INSURANCE BILL [address] [place] [address] * VITAMIN K1 (09/13/2022 9:20 AM RESIDENCE MANAGER) Pathologist [facility] Vitamin K1 0.14 0.10 - 2.20 ng/mL [facility] INSURANCE BILL Blood BLOOD SPECIMEN / Unknown 09/13/2022 9:20 AM RESIDENCE MANAGER 09/13/2022 Narrative [facility] INSURANCE BILL - 09/20/2022 3:06 AM RESIDENCE MANAGER Test(s) [id number]-[id number] K1 was developed and its performance characteristics determined by [facility]. It has not been cleared or approved by the Food and Drug Administration. Resulting Agency Comment Lab Testing performed at: [address] [id number] Madeline Anglin [facility] CHE[facility] TRY ORDERABLES Performing Organization Address [facility] de Phone Number [facility] INSURANCE BILL [address] [place] [address] * ZINC BLOOD (09/13/2022 9:20 AM RESIDENCE MANAGER) Zinc, Plasma or Serum 63 44 - 115 ug/dL [facility] INSURANCE BILL Comment:Detection Limit = 5 Blood BLOOD SPECIMEN / Unknown 09/13/2022 9:20 AM RESIDENCE MANAGER 09/13/2022 Narrative [facility] INSURANCE BILL - 09/16/2022 6:06 AM RESIDENCE MANAGER Test(s) [id number], Serum or Plasma; [id number]-[id number], Plasma or Serum was developed and its performance characteristics determined by [facility]. It has not been cleared or approved by the Food and Drug Administration. Resulting Agency Comment Lab Testing performed at: [address] [phone] Madeline Anglin [facility] - CHEMIS TRY ORDERABLES Performing Organization Address [facility] Co de Phone Number [facility] INSURANCE BILL [address] [place] [address] * VITAMIN A (09/13/2022 9:20 AM RESIDENCE MANAGER) Vitamin A 47.8 20.1 - 62.0 ug/dL [facility] INSUR[facility] BILL Comment: Reference intervals for vitamin A determined from [facility] internal studies. Individuals with vitamin A less than 20 ug/dL are considered vitamin A deficient and those with serum concentrations less than 10 ug/dL are considered severely deficient. . This test was developed and its performance characteristics determined by [facility]. It has not been cleared or approved by the Food and Drug Administration. Blood BLOOD SPECIMEN / Unknown 09/13/2022 9:20 AM RESIDENCE MANAGER 09/13/2022 Narrative [facility] INSURANCE BILL - 09/18/2022 8:06 PM RESIDENCE MANAGER Test(s) 404979-Fpbzyov E(Alpha Tocopherol); 406066- Vitamin E(Gamma Tocopherol) was developed and its performance characteristics determined by [facility]. It has not been cleared or approved by the Food and Drug Administration. Resulting Agency Comment Lab Testing performed at: [address] [phone] Madeline Anglin APRN-SILK SNAPPER LAB - CHEMIS TRY ORDERABLES Performing Organization Address [facility] de Phone Number [facility] INSURANCE BILL [address] [place] [address] * VITAMIN E (09/13/2022 9:20 AM RESIDENCE MANAGER) Vitamin E Alpha Tocopherol 12.0 7.0 - 25.1 mg/L [facility] INSURANCE BILL Vitamin E Gamma Tocopherol 2.3 0.5 - 5.5 mg/L [facility] INSURANCE BILL Comment: Reference intervals for alpha and gamma-tocopherol determined from National Health and Nutrition Examination Survey, 1432-2214. Individuals with alpha-tocopherol levels less than 5.0 mg/L are considered vitamin E deficient. Blood BLOOD SPECIMEN / Unknown 09/13/2022 9:20 AM RESIDENCE MANAGER 09/13/2022 Narrative [facility] INSURANCE BILL - 09/18/2022 8:06 PM RESIDENCE MANAGER Test(s) 548830-Yengjqk E(Alpha Tocopherol); 181274- Vitamin E(Gamma Tocopherol) was developed and its performance characteristics determined by [facility]. It has not been cleared or approved by the Food and Drug Administration. Resulting Agency Comment Lab Testing performed at: [address] [phone] Madeline Anglin APRN-SILK SNAPPER LAB - CHEMIS TRY ORDERABLES Performing Organization Address [facility]/ZIP Co de Phone Number [facility] INSURANCE BILL [address] [place] [address] * VITAMIN B1 (09/13/2022 9:20 AM RESIDENCE MANAGER) Only the most recent of2 resultswithin the time period is included. Vitamin B1 Whole Blood 113.6 66.5 - 200.0 nmol/L [facility] INSURANCE BILL Blood BLOOD SPECIMEN / Unknown 09/13/2022 9:20 AM RESIDENCE MANAGER 09/13/2022 Narrative [facility] INSURANCE BILL - 09/15/2022 4:07 PM RESIDENCE MANAGER Test(s) 863644-Csi. B1, Whole Blood was developed and its performance characteristics determined by [facility]. It has not been cleared or approved by the Food and Drug Administration. Resulting Agency Comment Lab Testing performed at: [facility] [phone] Madeline Anglin APRN-SILK SNAPPER LAB - CHEMIS TRY ORDERABLES Performing Organization Address City/[facility]/ZIP Co de Phone Number [facility] INSURANCE BILL [address] [place] [address] * PTH INTACT (09/13/2022 9:20 AM RESIDENCE MANAGER) Pathologist [facility] PTH Intact 24 15 - 65 pg/mL [facility] INSURANCE BILL Blood BLOOD SPECIMEN / Unknown 09/13/2022 9:20 AM RESIDENCE MANAGER 09/13/2022 Narrative Resulting Agency Comment Lab Testing performed at: [facility] [address] [facility] [phone] Madeline Anglin [facility] - CHEMIS TRY ORDERABLES [facility] INSURANCE BILL [address] [place] [address] * COPPER BLOOD (09/13/2022 9:20 AM RESIDENCE MANAGER) Copper 107 80 - 158 ug/dL [facility] INSURANCE BILL Comment:Detection Limit = 5 Blood BLOOD SPECIMEN / Unknown 09/13/2022 9:20 AM RESIDENCE MANAGER 09/13/2022 Narrative [facility] INSURANCE BILL - 09/16/2022 6:06 AM RESIDENCE MANAGER Test(s) 139445-Jljjle, Serum or Plasma; 589793-Byim, Plasma or Serum was developed and its performance characteristics determined by [facility]. It has not been cleared or approved by the Food and Drug Administration. Resulting Agency Comment Lab Testing performed at: [address] [phone] Madeline Anglin SHIPPING CLERK/[facility] LAB - CHEMIS TRY ORDERABLES Performing Organization Address City/[facility]/ZIP Co de Phone Number [facility] INSURANCE BILL [address] [place] [address] * CBC W/O DIFFERENTIAL (09/13/2022 9:20 AM RESIDENCE MANAGER) WBC 5.6 3.4 - 10.8 x10E3/uL [facility] INSURANCE BILL RBC 4.72 3.77 - 5.28 x10E6/uL [facility] INSURANCE BILL Hemoglobin 15.0 11.1 - 15.9 g/dL [facility] INSURANCE BILL Hematocrit 44.8 34.0 - 46.6 % [facility] INSURANCE BILL MCV 95 79 - 97 fL [facility] INSURANCE BILL MCH 31.8 26.6 - 33.0 pg [facility] INSURANCE BILL MCHC 33.5 31.5 - 35.7 g/dL [facility] INSURANCE BILL RDW 12.3 11.7 - 15.4 % [facility] INSURANCE BILL Platelet Count 314 150 - 450 x10E3/uL [facility] INSURANCE BILL nRBC NOT AVAILABLE [facility] INSURANCE BILL Comment:Result cannot be obt ained for this observation. Blood BLOOD SPECIMEN / Unknown 09/13/2022 9:20 AM RESIDENCE MANAGER 09/13/2022 Narrative Resulting Agency Comment Lab Testing performed at: [facility] [address] [facility] [phone] Madeline Anglin [facility] - HEMATO LOGY ORDERABLES Performing Organization Address City/[facility] Co de Phone Number [facility] INSURANCE BILL [address] [place] [address] * (ABNORMAL) COMPREHENSIVE METABOLIC PANEL (09/13/2022 9:20 AM RESIDENCE MANAGER) Only the most recent of5 resultswithin the time period is included. Glucose 71 70 - 99 mg/dL [facility] INSURANCE BILL BUN 9 6 - 24 mg/dL [facility] INSURANCE BILL Creatinine 0.77 0.57 - 1.00 mg/dL [facility] INSURANCE BILL eGFR by CKD-EPI 93 >59 mL/min/1.7 3 [facility] INSURANCE BILL BUN/Creatinine Ratio 12 9 - 23 [facility] INSURANCE BILL Sodium 144 134 - 144 mmol/L [facility] INSURANCE BILL Potassium 4.5 3.5 - 5.2 mmol/L [facility] INSURANCE BILL Chloride 106 96 - 106 mmol/L [facility] INSURANCE BILL CO2 24 20 - 29 mmol/L [facility] INSURANCE BILL Calcium 9.4 8.7 - 10.2 mg/dL [facility] INSURANCE BILL Protein Total 6.2 6.0 - 8.5 g/dL [facility] INSURANCE BILL Albumin 4.3 3.8 - 4.9 g/dL [facility] INSURANCE BILL Globulin Total 1.9 1.5 - 4.5 g/dL [facility] INSURANCE BILL Albumin/Globulin Ratio 2.3(H) 1.2 - 2.2 [facility] INSURANCE BILL Bilirubin Total 0.4 0.0 - 1.2 mg/dL [facility] INSURANCE BILL Alkaline Phosphatase 128(H) 44 - 121 IU/L [facility] INSURANCE BILL AST 36 0 - 40 IU/L [facility] INSURANCE BILL ALT 39(H) 0 - 32 IU/L [facility] INSURANCE BILL Blood BLOOD SPECIMEN / Unknown 09/13/2022 9:20 AM RESIDENCE MANAGER 09/13/2022 Narrative Resulting Agency Comment Lab Testing performed at: [facility] [address] [facility] [phone] Madeline Anglin SHIPPING CLERK/ADMIN-SILK SNAPPER LAB - CHEMIS TRY ORDERABLES [facility] INSURANCE BILL [address] [place] [address] * MAGNESIUM BLOOD (09/13/2022 9:20 AM RESIDENCE MANAGER) Magnesium 2.3 1.6 - 2.3 mg/dL [facility] INSURANCE BILL Blood BLOOD SPECIMEN / Unknown 09/13/2022 9:20 AM RESIDENCE MANAGER 09/13/2022 Narrative Resulting Agency Comment Lab Testing performed at: [facility] [address] [facility] [phone] Madeline Anglin SHIPPING CLERK/[facility] LAB - CHEMIS TRY ORDERABLES Performing Organization Address City/[facility]/ZIP Co de Phone Number [facility] [address] [place] [address] * VITAMIN B12 (09/13/2022 9:20 AM RESIDENCE MANAGER) Only the most recent of2 resultswithin the time period is included. Vitamin B12 392 232 - 1,245 pg/mL [facility] INSURANCE BILL Blood BLOOD SPECIMEN / Unknown 09/13/2022 9:20 AM RESIDENCE MANAGER 09/13/2022 Narrative Resulting Agency Comment Lab Testing performed at: [facility] [address] [facility] [phone] Madeline Anglin [facility] LAB - CHEMIS TRY ORDERABLES Performing Organization Address [facility]/ZIP Co de Phone Number [facility] [address] [place] [address] * (ABNORMAL) FERRITIN (09/13/2022 9:20 AM RESIDENCE MANAGER) Ferritin 174(H) 15 - 150 ng/mL [facility] INSURANCE BILL Blood BLOOD SPECIMEN / Unknown 09/13/2022 9:20 AM RESIDENCE MANAGER 09/13/2022 Narrative Resulting Agency Comment Lab Testing performed at: [facility] [address] [facility] [phone] Madeline Anglin SHIPPING CLERK/[facility] LAB - CHEMIS TRY ORDERABLES [facility] [address] [place] [address] * EGD (04/07/2022 10:02 AM CDT) Report Endoscopy POC _ Patient Name: Clarissa Sanchez Procedure Date: 04/07/2022 10:02 AM Date of : 1970 Admit Type: Outpatient Age: 51 Gender: Female Attending MD: Constantine Dhillon MD _ Procedure: Upper GI endoscopy Indications: Dysphagia, Assessment following Jessie-en-Y gastrojejunostomy Providers: Constantine Dhillon MD (Doctor) Referring MD: Marielena Cisneros (Referring MD) Medicines: Propofol per Anesthesia Complications: No immediate complications. _ Estimated Blood Loss: Estimated blood loss: none. Procedure: Pre-Anesthesia Assessment: - Prior to the procedure, a History and Physical was performed, and patient medications and allergies were reviewed. The patient's tolerance of previous anesthesia was also reviewed. The risks and benefits of the procedure and the sedation options and risks were discussed with the patient. All questions were answered, and informed consent was obtained. Prior Anticoagulants: The patient has taken no previous anticoagulant or antiplatelet agents. ASA Grade Assessment: II - A patient with mild systemic disease. After reviewing the risks and benefits, the patient was deemed in satisfactory condition to undergo the procedure. After obtaining informed consent, the endoscope was passed under direct vision. Throughout the procedure, the patient's blood pressure, pulse, and oxygen saturations were monitored continuously. The Endoscope was introduced through the mouth, and advanced to the jejunum. The upper GI endoscopy was accomplished without difficulty. The patient tolerated the procedure well. Findings: The examined esophagus was normal. Evidence of a gastric bypass was found. A gastric pouch with a 5 cm length from the GE junction to the gastrojejunal anastomosis was found containing non erosive mucosa, non rotated. The staple line appeared intact. The gastrojejunal anastomosis was characterized by congestion, edema and moderate stenosis. This was traversed after dilation. A TTS dilator was passed through the scope. Dilation with a 12-13.5-15 mm balloon dilator was performed to 15 mm. The examined jejunum was normal. _ Impression: - Normal esophagus. - Gastric bypass with a pouch 5 cm in length and intact staple line. Gastrojejunal anastomosis characterized by congestion, edema and moderate stenosis. Dilated. - Normal examined jejunum. - No specimens collected. Recommendation: - Discharge patient to home. - Resume previous diet. - Continue present medications. Procedure Code(s): --- Professional --- 90364, Esophagogastroduoden oscopy, flexible, transoral; with dilation of gastric/duodenal stricture(s) (eg, balloon, bougie) --- Technical --- 53762, Esophagogastroduoden oscopy, flexible, transoral; with dilation of gastric/duodenal stricture(s) (eg, balloon, bougie) Diagnosis Code(s): --- Professional --- Z98.84, Bariatric surgery status K95.89, Other complications of other bariatric procedure R13.10, Dysphagia, unspecified Z98.0, Intestinal bypass and anastomosis status Z09, Encounter for follow-up examination after completed treatment for conditions other than malignant neoplasm --- Technical --- Z98.84, Bariatric surgery status K95.89, Other complications of other bariatric procedure R13.10, Dysphagia, unspecified Z98.0, Intestinal bypass and anastomosis status Z09, Encounter for follow-up examination after completed treatment for conditions other than malignant neoplasm CPT copyright 2019 [employer]. All rights reserved. The codes documented in this report are preliminary and upon loader review may be revised to meet current compliance requirements. Constantine Dhillon MD 04/07/2022 10:17:19 AM Number of Addenda: 0 Note Initiated On: 04/07/2022 10:02 AM [facility] ENDOSCOPY 04/07/2022 10:0 2 AM CDT Narrative Procedure Note Constantine Dhillon MD - 04/07/2022 10:17 AM CDT PLAN: 1. Cont with daily PPI 2. Advance diet 3. Nurse to call in 7-10 days to assess for symptom resolution Constantine Dhillon MD Constantine Dhillon MD GI PROCEDURE ORDERAB LES [facility] [place] [address] * FL UGI SERIES WO KUB (02/16/2022 9:39 AM CDT) Only the most recent of2 resultswithin the time period is included. Anatomical Region Laterality Modality Abdomen Radiographic Sadie ging 02/16/2022 10:0 1 AM CDT Impressions 02/16/2022 10:01 AM CDT No evidence of leak or obstruction. *Reading Radiologist: Chayito Ruiz on 02/16/2022 at 10:01 AM Narrative 02/16/2022 10:01 AM CDT Fluoroscopic upper GI with KUB Indication: Morbid obesity, gastric surgery Findings: Multiple spot radiographs of the gastric remnant were obtained following ingestion of oral contrast media. There is no evidence of leak. There is prompt emptying into the small bowel. Total fluoro time is 0.7 minutes . Procedure Note Chayito Ruiz MD - 02/16/2022 Fluoroscopic upper GI with KUB Indication: Morbid obesity, gastric surgery Findings: Multiple spot radiographs of the gastric remnant were obtained following ingestion of oral contrast media. There is no evidence of leak. There is prompt emptying into the small bowel. Total fluoro time is 0.7 minutes . IMPRESSION No evidence of leak or obstruction. *Reading Radiologist: Chayito Ruiz on 02/16/2022 at 10:01 AM Constantine Dhillon MD FLUOROSCOPY ORDERABL ES * (ABNORMAL) GLUCOSE - POINT OF CARE (02/16/2022 6:45 AM CDT) Only the most recent of5 resultswithin the time period is included. Glucose WB/POC 116(H) 70 - 106 mg/dL 02/16/2022 6:51 AM CDT [facility] Specimen Type Cap Fingerstick 2021 6:51 AM CDT [facility] Blood BLOOD SPECIMEN / Unknown 02/16/2022 6:45 AM CDT 02/16/2022 6:50 AM CDT Constantine Dhillon MD LAB - POINT OF CARE ORDERABLES [facility] [address] [place] [address] * (ABNORMAL) CBC W AUTO DIFFERENTIAL (02/16/2022 5:09 AM CDT) Only the most recent of3 resultswithin the time period is included. WBC 11.7(H) 4.4 - 10.7 x10E9/L 02/16/2022 5:46 AM CDT [facility] WBC Corrected 02/16/2022 5:46 AM CDT [facility] RBC 4.36 3.80 - 5.20 x10E12/L 02/16/2022 5:46 AM CDT [facility] Hemoglobin 14.1 12.0 - 15.6 gm/dL 02/16/2022 5:46 AM CDT [facility] Hematocrit 42.7 35.9 - 45.5 % 02/16/2022 5:46 AM CDT [facility] MCV 97.9 80.7 - 98.3 fl 02/16/2022 5:46 AM CDT [facility] MCH 32.3 26.7 - 34.0 pg 02/16/2022 5:46 AM CDT [facility] MCHC 33.0 30.8 - 35.9 gm/dL 02/16/2022 5:46 AM CDT [facility] Platelet Count 291 153 - 416 x10E9/L 02/16/2022 5:46 AM CDT [facility] RDW-CV 12.8 12.1 - 14.9 % 02/16/2022 5:46 AM CDT [facility] MPV 10.7 9.4 - 12.9 fl 02/16/2022 5:46 AM CDT [facility] Neutrophils % 82.1(H) 44.0 - 73.0 % 02/16/2022 5:46 AM CDT [facility] Lymphocytes % 9.9(L) 20.0 - 43.0 % 02/16/2022 5:46 AM CDT [facility] Monocytes % 7.6 5.0 - 13.0 % 02/16/2022 5:46 AM T [facility] Eosinophils % 0.0 0.0 - 6.0 % 02/16/2022 5:46 AM T [facility] Basophils % 0.1 0.0 - 2.0 % 02/16/2022 5:46 AM T [facility] Immature Granulocytes 0.3 0 - 1 % 02/16/2022 5:46 AM T [facility] Neutrophil Absolute 9.57(H) 2.01 - 7.14 x10E9/L 02/16/2022 5:46 AM T [facility] Lymphocytes Absolute 1.15 1.07 - 3.94 x10E9/L 02/16/2022 5:46 AM T [facility] Monocytes Absolute 0.88 0.26 - 1.07 x10E9/L 02/16/2022 5:46 AM T [facility] Eosinophils Absolute 0.00 0 - 0.47 x10E9/L 02/16/2022 5:46 AM T [facility] Basophils Absolute 0.01 0 - 0.08 x10E9/L 02/16/2022 5:46 AM T [facility] Immature Granulocytes Absolute 0.04 0.00 - 0.06 x10E9/L 02/16/2022 5:46 AM T [facility] nRBC Auto 0 /100 WBC 02/16/2022 5:46 AM T [facility] Blood BLOOD SPECIMEN / Unknown Venipuncture / Unknown 02/16/2022 5:09 AM CDT 02/16/2022 5:42 AM CDT Constantine Dhillon MD LAB - HEMATOLOGY ORD ERABLES Performing Organization Address City/[facility]/ZIP Co de Phone Number [facility] [address] [place] [address] * (ABNORMAL) BASIC METABOLIC PANEL (CALCIUM TOTAL) (02/16/2022 5:09 AM CDT) [facility] Glucose 122(H) 70 - 105 mg/dL 02/16/2022 6:04 AM CDT [facility] Sodium 138 136 - 145 mmol/L 02/16/2022 6:04 AM CDT [facility] Potassium 4.4 3.5 - 5.1 mmol/L 02/16/2022 6:04 AM CDT [facility] Chloride 104 98 - 107 mmol/L 02/16/2022 6:04 AM CDT [facility] CO2 27 23 - 31 mmol/L 02/16/2022 6:04 AM CDT [facility] Calcium 8.9 8.4 - 10.4 mg/dL 02/16/2022 6:04 AM T [facility] Anion Gap 7(L) 8 - 18 mmol/L 02/16/2022 6:04 AM CDT [facility] BUN 9(L) 9.8 - 20.1 mg/dL 02/16/2022 6:04 AM CDT [facility] Creatinine 0.79 0.57 - 1.11 mg/dL 02/16/2022 6:04 AM T [facility] eGFR by CKD-EPI >90 >=90 mL/min/1.7 3 m2 02/16/2022 6:04 AM T [facility] Blood BLOOD SPECIMEN / Unknown Venipuncture / Unknown 02/16/2022 5:09 AM CDT 02/16/2022 5:43 AM CDT Constantine Dhillon MD LAB - CHEMISTRY ORDE RABORESTES Performing Organization Address City/[facility]/ZIP Co de Phone Number [facility] [address] [place] [address] * ETT LINE PERFORMABLE (02/15/2022 12:10 PM CDT) Narrative Niranjan Enrique APRN-CRNA - 02/15/2022 12:10 PM CDT Niranjan Enrique APRN-CRNA 02/15/2022 12:10 PM Endotracheal Tube Placement: Patient Location: OR. Procedure: intubation ([id number]). Procedure Section: Sedation: under general anesthesia. Indications for Airway Management: anesthesia Induction: standard IV Patient Position: sniffing Mask Ventilation: not attempted. Blade Type: Video (delatorre) Blade Size: 3 Intubation Adjuncts: video laryngoscope, cricoid pressure and stylet Tube: endotracheal tube Placement: oral Tube type: cuff - inflated Tube Size (MM): 7 Depth of Insertion (CM): 22 Measured From: teeth Cuff volume (mL): 7 Cuff Inflated With: air Number of Attempts: 1. Placement Verified By: direct visualization, bilateral breath sounds, chest auscultation and CO2 monitor Tube secured with: adhesive tape. Dentition unchanged? Yes Difficult Airway? No. Staff Section Anesthesia Provider: Niranjan Enrique APRN-CRNA, Performed the procedure Abi Santacruz MD GENERAL ANESTHESI A ORDERABLES * HCG URINE QUALITATIVE (02/15/2022 9:51 AM CDT) hCG Qualitative Urine Negative Negative 02/15/2022 10:15 AM CDT [facility] Urine URINE / Unknown Collection / Unknown 02/15/2022 9:51 AM CDT 02/15/2022 10:11 AM CDT Dotty Osborn DO LAB - URINALYSIS ORD ERABLES [facility] [address] [place] [address] * POTASSIUM BLOOD (02/15/2022 9:51 AM CDT) Potassium 3.6 3.5 - 5.1 mmol/L 02/15/2022 10:20 AM CDT [facility] Blood BLOOD SPECIMEN / Unknown Venipuncture / Unknown 02/15/2022 9:51 AM CDT 02/15/2022 10:11 AM CDT Dotty Osborn DO LAB - CHEMISTRY NOEL BURCH [facility] [address] [place] [address] * EKG 12-LEAD (02/07/2022 12:41 PM CDT) Only the most recent of2 resultswithin the time period is included. Ventricular Rate 73 BPM [facility] Atrial Rate 73 BPM [facility] P-R Interval 154 ms [facility] QRS Duration ms 88 ms [facility] Q-T Interval ms 392 ms [facility] QTC Calculation (Bezet) 431 ms [facility] Calculated P [place] 64 degrees [facility] Calculated R [place] 49 degrees [facility] Calculated T [place] 35 degrees [facility] Interpretation EKG Normal sinus rhythm Normal ECG No previous ECGs available Confirmed by DREW WHITNEY, JERICA ([id number]) on 02/07/2022 11:06:59 PM [facility] 02/07/2022 12:4 1 PM CDT 02/07/2022 11:06 PM CDT Constantine Dhillon MD ECG ORDERABLES Performing Organization Address City/[facility]/ZIP Co de Phone Number [facility] * HEMOGLOBIN A1C (12/08/2021 11:14 AM CDT) Hemoglobin A1c 5.3 4.2 - 5.6 % [facility] INSURANCE BILL Comment: AVERAGE GLUCOSE MG/DL BLOOD 105 mg/dL The following cutoff levels are recommended by [employer]. A1c > 6.5% : considered as diabetes if two separate tests > 6.5% or in an appropriate clinical setting. A1c 5.7% - 6.4% : considered as prediabetes (suggest increa sed risk for diabetes and cardiovascular disease) Control target level: Should be individualized. < 7 for g eneral (non-) , < 8% less stringent goal, < 6.5 more stringent g Hemoglobin A1c measurements are used as an aid in the diagno sis of diabetic mellitus, as an aid to identify patients who may be at the disease. This method may yield falsely low results when fe bubba hemoglobin (HbF) exceeds 5% in the specimen. FASTING Blood BLOOD SPECIMEN / Unknown 12/08/2021 11:14 AM CDT 12/08/2021 Narrative Resulting Agency Comment Lab Testing performed at: Formerly named [facility] [address] [place] [phone] Marielena Cisneros MD LAB - CHEMISTRY ORD ERABLES [facility] INSURANCE BILL [address] [place] [address] * (ABNORMAL) LIPID PROFILE (12/08/2021 11:14 AM CDT) Only the most recent of3 resultswithin the time period is included. Cholesterol 241(H) <200 mg/dL [facility] INSURANCE BILL Triglycerides 174(H) <150 mg/dL [facility] INSURANCE BILL HDL Cholesterol 61 >40 mg/dL [facility]URANCE B[facility] VLDL Calculated 35(H) <=30 mg/dL [facility] INSURANCE BILL LDL Calculated 145(H) <130 mg/dL [facility] INSURANCE BILL Comment:FASTING Blood BLOOD SPECIMEN / Unknown 12/08/2021 11:14 AM CDT 12/08/2021 Narrative Resulting Agency Comment Lab Testing performed at: Formerly named [facility] [address] [place] [phone] Marielena Cisneros MD LAB - CHEMISTRY ORD ERABLES [facility] INSURANCE BILL [address] [place] [address] * HELICOBACTER PYLORI UREASE (STL) (11/18/2021 9:03 AM CDT) Helicobacter pylori Urease Initial Negative Negative 11/19/2021 1:46 PM CDT [facility] Helicobacter pylori Urease Final Negative Negative 11/19/2021 1:46 PM CDT [facility] Microbiology GASTRIC ANTRAL BIOPSY SPECIMEN / Unknown 11/18/2021 9:03 AM CDT 11/18/2021 1:04 PM CDT Constantine Dhillon MD LAB - MICROBIOLOGY O RDERABLES [facility] [address] [place] [address] * EGD (11/18/2021 7:06 AM CDT) Report Endoscopy POC _ Patient Name: Clarissa Sanchez Procedure Date: 11/18/2021 7:06 AM Date of : 1970 Admit Type: Outpatient Age: 51 Gender: Female Attending MD: Constantine Dhillon MD _ Procedure: Upper GI endoscopy Indications: Heartburn, Preoperative assessment for bariatric surgery to treat morbid obesity Providers: Constantine Dhillon MD (Doctor) Referring MD: Marielena Cisneros (Referring MD) Medicines: Propofol per Anesthesia Complications: No immediate complications. _ Estimated Blood Loss: Estimated blood loss: none. Procedure: Pre-Anesthesia Assessment: - Prior to the procedure, a History and Physical was performed, and patient medications and allergies were reviewed. The patient's tolerance of previous anesthesia was also reviewed. The risks and benefits of the procedure and the sedation options and risks were discussed with the patient. All questions were answered, and informed consent was obtained. Prior Anticoagulants: The patient has taken no previous anticoagulant or antiplatelet agents. ASA Grade Assessment: II - A patient with mild systemic disease. After reviewing the risks and benefits, the patient was deemed in satisfactory condition to undergo the procedure. After obtaining informed consent, the endoscope was passed under direct vision. Throughout the procedure, the patient's blood pressure, pulse, and oxygen saturations were monitored continuously. The Endoscope was introduced through the mouth, and advanced to the second part of duodenum. The upper GI endoscopy was accomplished without difficulty. The patient tolerated the procedure well. Findings: LA Grade A (one or more mucosal breaks less than 5 mm, not extending between tops of 2 mucosal folds) esophagitis with no bleeding was found 38 cm from the incisors. Localized mild inflammation characterized by erosions and erythema was found in the gastric antrum. Biopsies were taken with a cold forceps for Helicobacter pylori testing using CLOtest. The duodenal bulb, first portion of the duodenum and second portion of the duodenum were normal. _ Impression: - LA Grade A esophagitis with no bleeding. - Gastritis. Biopsied. - Normal duodenal bulb, first portion of the duodenum and second portion of the duodenum. Recommendation: - Await pathology results. - Discharge patient to home. - Resume previous diet. Procedure Code(s): --- Professional --- 82321, Esophagogastroduo denoscopy, flexible, transoral; with biopsy, single or multiple --- Technical --- 53344, Esophagogastroduo denoscopy, flexible, transoral; with biopsy, single or multiple Diagnosis Code(s): --- Professional --- K20.90, Esophagitis, unspecified without bleeding K29.70, Gastritis, unspecified, without bleeding R12, Heartburn Z01.818, Encounter for other preprocedural examination E66.01, Morbid (severe) obesity due to excess calories --- Technical --- K20.90, Esophagitis, unspecified without bleeding K29.70, Gastritis, unspecified, without bleeding R12, Heartburn Z01.818, Encounter for other preprocedural examination E66.01, Morbid (severe) obesity due to excess calories CPT copyright 2019 [employer]. All rights reserved. The codes documented in this report are preliminary and upon loader review may be revised to meet current compliance requirements. __ Constantine Dhillon MD 11/18/2021 9:05:39 AM Number of Addenda: 0 Note Initiated On: 11/18/2021 7:06 AM [facility] ENDOSCOPY 11/18/2021 7:06 AM CDT Narrative Procedure Note Constantine Dhillon MD - 11/18/2021 9:06 AM CDT PLAN: - f/u biopsy results - No follow up post procedure office appointment necessary, continue withpreoperative plan - continue with LRYGB - no follow up post EGD - preop note modified Constantine Dhillon MD Constantine Dhillon MD GI PROCEDURE ORDERAB LES [facility] [place] [address] * VAS BILATERAL VENOUS DUPLEX LE (02/25/2021 11:43 AM CDT) Anatomical Region Laterality Modality Lower Extremity Intravascular Ul trasound 02/25/2021 12:1 1 PM CDT Narrative Procedure Note Smooth Artis MD - 02/25/2021 [facility] [address] [place] [address] Lower Extremity Venous Ultrasound Report Pat.Name: CLARISSA SANCHEZ Pat.ID: [id number] .Date: 02/25/2021 Exam Time: 12:11:00 PM Study Type:LE Venous Age: 3 1970,50Y Sex: FEMALE Sonogrphr: Sandrita Lazo RVT Pat. Stat.:Outpatient CPT - 4: 52308 Reason for Study: Swelling -Leg, bilateral History / Clinical: Obesity Procedures: Lower Extremity Venous - Bilateral Race: 2 Visit ID: [id number] ++++++++++++++++++++++++++++++++++++ SUMMARY: ++++++++++++++++++++++++++++++++++++ No evidence of deep or superficial venous thrombosis or insufficiency of either the right or left lower extremity. ++++++++++++++++++++++++++++++++++++ FINDINGS: ++++++++++++++++++++++++++++++++++++ Procedure: Venous duplex imaging of both lower extremities was performed using color flow and spectral Doppler analysis. Study Quality: This study is of adequate technical quality. Bilateral: All vessels seen appear patent and compressible. There was spontaneous and phasic flow seen in the common femoral and femoral veins of both lower extremities. Appropriate augmentation with distal compression. No evidence of reflux with proximal compression. Signed 02/25/2021 03:41 PM Smooth Artis MD, RPVI Jaimie Bustos APRN-[facility] OR DERABLES * POLYSOMNOGRAM WITH CPAP IF INDICATED (12/15/2020 12:00 PM CDT) 12/15/2020 12:0 0 PM CDT Narrative Procedure Note Silke Elaine MD - 12/16/2020 11:59 PM CDT [facility] Polysomnography PATIENT NAME: CLARISSA SANCHEZ MR#: [id number] ROOM#: CSN: [id number] DATE OF TEST: 12/15/2020 SEX: F PHYSICIAN: Silke Elaine M.D. : 1970 ORDERING PROVIDER: SILKE ELAINE M.D. INDICATION FOR STUDY AND SLEEP HISTORY: The patient reports snoring and hypersomnia but scores 7 on the [place] Sleepiness Scale. The patient'smedical history includes hypertension, memory loss, as well as depression. Thepatient weighs 282 pounds and has a BMI of 48.2. DATA SUMMARY: This diagnostic study was done utilizing both a nasalpressure transducer as well as a thermistor for airflow measure. Total recordingtime was 428 minutes with a sleep time of 293 minutes. Sleep efficiency was decreased at 68%. Sleep latency was prolonged at 85 minutes. Sleepstage distribution was as follows: 8% stage N1, 83% stage N2, and 8% stage N3.The patient had no REM sleep on this study. There were 119 arousals leadingto an arousal index of 24. The patient slept in the supine position for about50% of the sleep time. Using CMS criteria to score events, the patient was found to have 55hypopneas. This led to an apnea-hypopnea index of 11. The index in supine sleep was13 and in non-supine sleep was 9. For comparison using AASM criteria to score respiratory events the overall AHI was 40. Oxygen saturation showed amean of 91% with a low of 86%. Hypoxemia was not sustained. There was moderate snoring. EKG showed sinus rhythm with no sustained dysrhythmias. The mean heartrate during sleep was 73. The patient had no significant periodic limbmovements on the study. IMPRESSION: Using CMS criteria to score respiratory events, which wouldbe applicable based on the patient's current insurance, this studydemonstrates mild obstructive sleep apnea overall with an apnea-hypopnea index of 11. The index was slightly worse in the supine position. The patient had noREM sleep on the study, which likely led to an underestimation of the trueAHI. RECOMMENDATION: 1. CPAP is the preferred therapy for this patient with mild sleep apneaand morbid obesity. This can be set up with an auto CPAP device. 2. Oral dental appliance is another treatment option for mild sleep apneain the appropriate patient or if the patient cannot tolerate CPAP. 3. Weight loss is recommended. DICTATOR: Silke Elaine M.D. MSD/MODL #:[id number] CC: Silke Elaine M.D. Silke Elaine MD [facility] ORDER ALYSSA [facility] MENDEZ * [id number] COLOGUARD TEST *Associate with Z12.11 OR Z12.12 Dx Codes* (12/06/2020 8:00 AM CDT) Cologuard Negative Not Applicable [facility] Comment: A negative result indicates a low likelihood that a colorectal cancer (CRC) or an advanced adenoma (adenomatous polyps with more advanced pre-malignant features) is present. The chance that a person with a negative Cologuard test has a colorectal cancer is less than 1 in 1500 (negative predictive value >99.9%) or has an advanced adenoma is less than 5.3% (negative predictive value 94.7%). These data are based on a prospective cross-sectional screening study of 10,000 individuals at average risk for colorectal cancer who were screened with both Cologuard and colonoscopy. (Ida Durand al, N Engl J Med 2014;370(14):4376-6021) The normal value (reference range) for this assay is negative. COLOGUARD RE-SCREENING RECOMMENDATION: Periodic routine colorectal cancer screening is an important part of preventive healthcare for asymptomatic persons at average risk for colorectal cancer. Following a negative Cologuard result, the [place] [employer] and U.S. Multi-Society Task Force screening guidelines recommend a Cologuard re-screening interval of 3 years. References: [place] [employer] (ACS). Colorectal cancer prevention and early detection. [place], [place]: [place] [employer]; [updated 2016 Dec 18]. https://www.cancer.org/cancer/tlorx-flcgcr-paaccl/mtbnqzbvm-lcuqjjorr-yxwpvrq/ acs-recommendations.html. Accessed April 26, 2018; Anselmo DK, Irvin CR, Marsha REAL, Colorectal Cancer Screening: Recommendations for Physicians and Patients from the U.S. Multi-Society Task Force on Colorectal Cancer Screening, Am J Gastroenterology 2017; 112:3802-0272. TEST TYPE: Composite algorithmic analysis of stool DNA-biomarkers with hemoglobin immunoassay. Quantitative values of individual biomarkers are not reportable and are not associated with individual biomarker result reference ranges. PRECAUTIONS AND LIMITATIONS: Cologuard is intended for colorectal cancer screening of adults of either sex, 45 years or older, who are at average-risk for colorectal cancer (CRC). Cologuard has been approved for use by the U.S. FDA. Cologuard may produce a false negative or false positive result. A negative Cologuard test result does not guarantee the absence of CRC or advanced adenoma (pre-cancer). Patients with a negative Cologuard test result should be advised to continue participating in a colorectal cancer screening program. The screening interval for Cologuard is currently recommended at an interval of every 3 years by the [place] [employer] and U.S. Multi-Society Task Force. A false positive result occurs when Cologuard produces a positive result, even though a colonoscopy may not find colorectal cancer or precancerous polyps. The performance of Cologuard has been established in a cross sectional study (i.e., single point in time) of average-risk adults aged 50-84. Cologuard performance in patients ages 45 to 49 years was estimated by sub-group analysis of near-age groups. Cologuard performance data in a 10,000 patient pivotal study using colonoscopy as the reference method can be accessed at the following location: www.[employer]/results. Additional description of the Cologuard test process, warnings and precautions can be found at www.cologuardtest.com. Rx only. Stool specimen (specimen) STOOL SPECIMEN / Unknown 12/06/2020 8:00 AM CDT 12/07/2020 2:20 PM CDT Marielena Cisneros MD LAB - CHEMISTRY ORD ERABLES [facility] [address] [place] [address] [address] [place] [address] [facility] [address] [place] [address]. [place] [address] * IMAGING RADIOLOGY XRAY RESULTS ORDER (10/21/2020) Only the most recent of3 resultswithin the time period is included. Anatomical Region Laterality Modality Other Scanned Document IMAGING * HIV-1 RNA QUALITATIVE RFLXD (07/30/2020 10:27 AM RESIDENCE MANAGER) HIV-1 RNA Qualitative Negative Negative [facility] INSURANCE BILL Comment:Negative for HIV-1 R NA Final Interpretation [facility] INSURANCE BILL Comment: HIV antibodies were not confirmed and HIV 1 RNA was not detected. No laboratory evidence of HIV 1 infection. Follow-up testing for HIV 2 should be performed if clinically indicated. FASTING 07/30/2020 10:2 7 AM RESIDENCE MANAGER 07/30/2020 Narrative Resulting Agency Comment Lab Testing performed at: [facility] [address] [phone] Marielena Cisneros MD LAB - CHEMISTRY ORD ERABLES [facility] INSURANCE BILL [address] [place] [address] * HIV-1 HIV-2 ANTIBODY W REFLX (07/30/2020 10:27 AM RESIDENCE MANAGER) HIV-1 Antibody Negative Negative [facility] INSURANCE BILL HIV-2 Antibody Negative Negative [facility] INSURANCE BILL Interpretation Negative [facility] INSURANCE BILL Comment: See RNA Reflex. FASTING Blood BLOOD SPECIMEN / Unknown 07/30/2020 10:27 AM RESIDENCE MANAGER 07/30/2020 Narrative Resulting Agency Comment [facility] [address] [facility] [phone] Marielena Csineros MD LAB - SEROLOGY ORDE RABORESTES [facility] INSURANCE BILL [address] [place] [address] * HEPATITIS C AB W RFLX VERIFICATION (07/30/2020 10:26 AM RESIDENCE MANAGER) Hepatitis C Antibody <0.1 0.0 - 0.9 s/co ratio [facility] INSURANCE BILL Comment:FASTING Blood BLOOD SPECIMEN / Unknown 07/30/2020 10:26 AM RESIDENCE MANAGER 07/30/2020 Narrative Resulting Agency Comment [facility] performed at: [facility] [address] [facility] [phone] Marielena Cisneros MD LAB - CHEMISTRY ORD ERABLES Performing Organization Address City/[facility]/ZIP Co de Phone Number [facility] [address] [place] [address] * HCV COMMENT (07/30/2020 10:26 AM RESIDENCE MANAGER) Comment [facility] INSURANCE BILL Comment: Non reactive HCV antibody screen is consistent with no HCV infection, unless recent infection is suspected or other evidence exists to indicate HCV infection. Effective September 13, 2020 HCV Ab w/Rflx to Verification will be made non-orderable. [facility] offers order code [id number] HCV Antibody reflex to JUNIOR. FASTING 07/30/2020 10:2 6 AM RESIDENCE MANAGER 07/30/2020 Narrative Resulting Agency Comment Lab Testing performed at: [facility] [phone] Marielena Cisneros MD LAB - CHEMISTRY ORD ERABLES Performing Organization Address [facility] Co de Phone Number [facility] INS[facility] BILL [address] [place] [address] * TSH (07/30/2020 10:26 AM RESIDENCE MANAGER) TSH 0.642 0.450 - 4.500 uIU/mL [facility] INSURANCE BILL Comment:FASTING Blood BLOOD SPECIMEN / Unknown 07/30/2020 10:26 AM RESIDENCE MANAGER 07/30/2020 Narrative Resulting Agency Comment Lab Testing performed at: [facility] [phone] Marielena Cisneros MD LAB - CHEMISTRY ORD ERABLES Performing Organization Address City/[facility]/ZIP Co de Phone Number [facility] INSURANCE BILL [address] [place] [address] * TISSUE SPECIMEN A (05/07/2019 3:43 PM CDT) Only the most recent of2 resultswithin the time period is included. A Source [facility] Comment:Cervix, biopsy at 9: 00 position: A Gross Description [facility] Comment: Received in formalin and verified with 2 patient identifiers and 9:00 BX is a 0.3 x 0.2 x 0.1 cm carias tissue submitted entirely in a single cassette. DJ Due to shrinkage, measurements of certain types of specimens may be different than those at the time of procedure. Gross exam(s) performed at: [address] [phone] Header Boss: KIM DUGGAN MD A Diagnosis [facility] Comment: - Benign ectocervical tissue showing reactive epithelial cellular changes. - No transformation zone component present. - No features diagnostic of dysplasia or malignancy. A Comment [facility] Comment: Rosado portions of this case have been reviewed by one or more additional pathologist(s). Test Performed at: [address] [address] KIM DUGGAN MD 05/07/2019 3:43 PM CDT 05/08/2019 4:38 AM CDT Ирина Comer DO LAB - PATHOLOGY/CYTO LOGY ORDERABLES Performing Organization Address [facility] Co de Phone Number [address] [address] * PATHOLOGY SPECIMEN (05/07/2019 3:43 PM CDT) Only the most recent of2 resultswithin the time period is included. Clinical Information [facility] Comment:None given Pathologist [facility] Comment: Dinesh Fallon M.D., Board Certified in Anatomic and Clinical Pathology. (electronic signature) Test Performed at: [facility] [address] KIM DUGGAN MD Pathology/Cytolo gy PART OF UTERINE CERVIX / Unknown 05/07/2019 3:43 PM CDT 05/08/2019 4:49 AM CDT Ирина Comer DO LAB - PATHOLOGY/CYTO LOGY ORDERABLES Performing Organization Address City/[facility] Co de Phone Number [facility] [address] [place] [address] * (ABNORMAL) VAGINITIS PLUS (BV CA CT NG TRICH) (04/22/2019 2:10 PM CDT) Atopobium vaginae Low - 0 Score [facility] INSURANCE BILL BVAB 2 Low - 0 Score [facility] INSURANCE BILL Megashaera Low - 0 Score [facility] INSURANCE BILL Comment: Calculate total score by adding the 3 individual bacterial vaginosis (BV) marker scores together. Total score is interpreted as follows: Total score 0-1: Indicates the absence of BV. Total score 2: Indeterminate for BV. Additional clinical data should be evaluated to establish a diagnosis. Total score 3-6: Indicates the presence of BV. . This test was developed and its performance characteristics determined by [facility]. It has not been cleared or approved by the Food and Drug Administration. The FDA has determined that such clearance or approval is not necessary. Sharon albicans JUNIOR Positive(A) Negative [facility] INSURANCE BILL Sharon glabrata JUNIOR Negative Negative [facility] INSURANCE BILL Comment: This test was developed and its performance characteristics determined by [facility]. It has not been cleared or approved by the Food and Drug Administration. The FDA has determined that such clearance or approval is not necessary. Trichomonas vaginalis by JUNIOR Negative Negative [facility] INSURANCE BILL Chlamydia Trachomatis JUNIOR Negative Negative [facility] INSURANCE BILL GC JUNIOR Negative Negative [facility] INSURANCE BILL Microbiology ENTIRE VAGINA / Unknown 04/22/2019 2:10 PM CDT 04/22/2019 Narrative Resulting Agency Comment Lab Testing performed at: [facility] [phone] Ирина Comer DO LAB - MICROBIOLOGY O RDERABLES [facility] INSURANCE BILL [address] [place] [address] * (ABNORMAL) PAP LB HPV HR+LR (04/22/2019 2:09 PM CDT) Diagnosis (A) [facility] INSURANCE BILL Comment: EPITHELIAL CELL ABNORMALITY. LOW GRADE SQUAMOUS INTRAEPITHELIAL LESION (LSIL). FUNGAL ORGANISMS MORPHOLOGICALLY CONSISTENT WITH SHARON SPECIES ARE PRESENT. Recommendation (A) [facility] INSURANCE BILL Comment:Suggest follow up as clinically appropriate. Specimen Adequacy [facility] INSURANCE BILL Comment: Satisfactory for evaluation. Endocervical and/or squamous metaplastic cells (endocervical component) are present. Clinician Provided ICD10 [facility] INSURANCE BILL Comment: Z01.419 N76.0 Performed by [facility] INSURANCE BILL Comment:Tomi Owens Cytosabine chnologist (ASCP) Electronically Signed by [facility] INSURANCE BILL Comment:Alma Delia Benoit MD, Pa thologist Comment . [facility] INSURANCE BILL Pathologist Provided ICD10 [facility] INSURANCE BILL Comment:R87.612, R87.5 Note [facility] INSURANCE BILL Comment: The Pap smear is a screening test designed to aid in the detection of premalignant and malignant conditions of the uterine cervix. It is not a diagnostic procedure and should not be used as the sole means of detecting cervical cancer. Both false-positive and false-negative reports do occur. . Human papillomavirus High Risk Positive(A) Negative [facility] INSURANCE BILL Human papillomavirus Low Risk Negative Negative [facility] INSURANCE BILL Comment: These HPV tests detect thirteen high-risk types (16/18/31/33/35/ 39/45/51/52/56/58/59/68) and five low-risk types (6/11/42/43/44) without differentiation. . PART OF UTERINE CERVIX / Unknown 04/22/2019 2:09 PM CDT 04/22/2019 Narrative [facility] INSURANCE BILL - 04/25/2019 5:07 PM CDT No. of containers..01 ThinPrep Vial Resulting Agency Comment Lab Testing performed at: [address] [phone] Ирина Comer DO LAB - PATHOLOGY/CYTO LOGY ORDERABLES [facility] INSURANCE BILL [address] [place] [address] * US DUPLEX LOCAL EXTREM VEINS LMT (01/12/2017) Anatomical Region Laterality Modality Ultrasound Provider Unknown US ORDERABLES * MRI KNEE WO CONT LEFT (07/11/2016 12:58 PM RESIDENCE MANAGER) Anatomical Region Laterality Modality Lower Extremity Magnetic Resonan ce 07/11/2016 1:06 PM RESIDENCE MANAGER Impressions 07/11/2016 2:55 PM RESIDENCE MANAGER There is a 2 mm thick medial patellar plica. Mild chondromalacia of the medial patellar facet is noted. A small knee joint effusion is present. A 3 x 1 cm German's cyst is noted. No definite meniscal tear is seen. There is mild thinning of the articular cartilage in the medial compartment of the knee. Narrative 07/11/2016 2:55 PM RESIDENCE MANAGER MRI of left knee HISTORY: Left knee pain FINDINGS: A small knee joint effusion is present. The patella is well seated on the trochlear groove. Mild thinning of the articular cartilage in the medial patellar facet is noted. A 2 mm thick medial patellar plica is present. The medial retinaculum and lateral retinaculum are intact. A 3 x 1 cm German's cyst is noted. The quadriceps tendon is intact. The patellar tendon is intact. Comparison is made to the left knee x-rays from June 28, 2016. The ACL and PCL are intact. No lateral meniscal tear is seen. The lateral collateral ligament complex is intact. No medial meniscal tear is seen. There is mild thinning of the articular cartilage in the medial compartment of the knee. The MCL is intact. A 3 mm subchondral cyst is seen in the posterior aspect of the medial tibial plateau. Procedure Note Luis Eduardo Sanchez MD - 07/11/2016 MRI of left knee HISTORY: Left knee pain FINDINGS: A small knee joint effusion is present. The patella is well seated on the trochlear groove. Mild thinning of the articular cartilage in the medial patellar facet is noted. A 2 mm thick medial patellar plica is present. The medial retinaculum and lateral retinaculum are intact. A 3 x 1 cm German's cyst is noted. The quadriceps tendon is intact. The patellar tendon is intact. Comparison is made to the left knee x-rays from June 28, 2016. The ACL and PCL are intact. No lateral meniscal tear is seen. The lateral collateral ligament complex is intact. No medial meniscal tear is seen. There is mild thinning of the articular cartilage in the medial compartment of the knee. The MCL is intact. A 3 mm subchondral cyst is seen in the posterior aspect of the medial tibial plateau. IMPRESSION There is a 2 mm thick medial patellar plica. Mild chondromalacia of the medial patellar facet is noted. A small knee joint effusion is present. A 3 x 1 cm German's cyst is noted. No definite meniscal tear is seen. There is mild thinning of the articular cartilage in the medial compartment of the knee. Charan Love DO MR ORDERABLES * XR KNEE 4+ VW LEFT (06/28/2016 2:37 PM CDT) Anatomical Region Laterality Modality Lower Extremity Radiographic Sadie ging Narrative 06/28/2016 4:52 PM CDT Zulema Cowan, RT(R) 06/28/2016 4:52 PM Please see office note for result. Charan Love DO DIAGNOSTIC IMAGING O RDERABLES * XR SHOULDER 2+ VW RIGHT (12/29/2015 3:06 PM CDT) Anatomical Region Laterality Modality Upper Extremity Radiographic Sadie ging Narrative 12/29/2015 4:15 PM CDT Siena Pearson, RT(R) 12/29/2015 4:15 PM See Chart For Xray Report Charan Lvoe DO DIAGNOSTIC IMAGING O RDERABLES * GROSS + MICRO EXAM (STL) (11/26/2013 11:32 AM CDT) Case Report Surgical Pathology Report Case: [id number] -- Authorizing Provider: Stephanie Angulo MD Ordering Provider: Stephanie Angulo MD Ordering Location: [facility] Collected: 11/26/2013 11:32 AM Pathologist: Julia Baxter MD Received: 11/26/2013 3:27 PM Signed Out: 11/28/2013 5:22 PM (Final) Specimen: Endometrium Biopsy, sharp uterine curettings 11/28/2013 5:22 PM [facility] Final Diagnosis Uterus, sharp endometrial curettage: Benign fragments of proliferative phase endometrium including fragments with architectural features consistent with benign endometrial polyp Negative for atypia and carcinoma NM/lma 11/28/2013 5:22 PM [facility] Clinical History Preoperative Diagnosis: Menorrhagia 11/28/2013 5:22 PM [facility] Gross Description One portion received in Histochoice labeled on a Telfa pad labeled endometrial curetting consists of 1.5 grams of morselized pink-carias tissue admixed with clot. The specimen is entirely submitted. BLOCK A - Endometrial curetting, levels (ME)na 11/28/2013 5:22 PM [facility] Microscopic Description Microscopic examination corroborates the diagnosis. NM/lma 11/28/2013 5:22 PM [facility] Testing Performed By [facility] Pathologists, [facility] at [facility], [address] [place] [address]. [id number] 11/28/2013 5:22 PM [facility] Synoptic Report 11/28/2013 5:22 PM [facility] Pathology/Cytolo gy OPEN BIOPSY OF ENDOMETRIUM / Unknown 11/26/2013 11:32 AM CDT 11/26/2013 3:27 PM CDT Stephanie Angulo MD LAB - PATHOLOGY/CYTO LOGY ORDERABLES Performing Organization Address [facility] Co de Phone Number [facility] [address] [place] [address] * HCG URINE QUALITATIVE - POINT OF CARE (IP) (11/26/2013 10:29 AM CDT) HCG Qual Urine Negative Negative [facility] QC Verified Yes Yes [facility] POC T TESTING Urine specimen (specimen) URINE / Unknown 11/26/2013 10:29 AM CDT Stephanie Anuglo MD LAB - POINT OF CARE ORDERABLES Performing Organization Address [facility]/State/ZIP Co de Phone Number [facility] [address] [place] [address] * INFLUENZA A+B - POINT OF CARE (09/11/2011 11:55 AM RESIDENCE MANAGER) Influenza A Antigen Rapid negative Negative Influenza B Antigen Rapid negative Negative Influenza Internal Control NEGATIVE - POSITIVE Influenza Lot Number Influenza Expiration Date NASOPHARYNGEAL SWAB / Unknown Lily Olivera SHIPPING CLERK/ADMIN-SILK SNAPPER LAB - POINT O F CARE ORDERABLES * CT ABDOMEN AND PELVIS WITH IV CONTRAST MP (07/06/2011) Anatomical Region Laterality Modality Abdomen, Pelvis Other Betina Zazueta MD CT ORDERABLES * BUN/CREATININE RATIO W/EGFR (PO REF LAB) (06/30/2011 3:34 PM CDT) BUN 12 6 - 24 mg/dL [facility] ACCOUNT BILL Creatinine 0.78 0.57 - 1.00 mg/dL [facility] ACCOUNT BILL eGFR by MDRD 95 >59 mL/min/1.7 3 [facility] ACCOUNT BILL eGFR by MDRD 110 >59 mL/min/1.7 3 [facility] ACCOUNT BILL Comment: Note: A persistent eGFR <60 mL/min/1.73 m2 (3 months or more) may indicate chronic kidney disease. An eGFR >59 mL/min/1.73 m2 with an elevated urine protein also may indicate chronic kidney disease. Calculated using CKD-EPI formula. BUN/Creatinine Ratio 15 9 - 23 [facility] ACCOUNT BILL BLOOD SPECIMEN / Unknown 06/30/2011 3:34 PM CDT 06/30/2011 8:58 PM CDT Narrative Resulting Agency Comment [facility] [address] [phone] Betina Zazueta MD LAB - CHEMISTRY NOEL BURCH [facility] ACCOUNT BILL * XR LUMBAR SPINE 2 OR 3 VW (05/09/2011 2:35 PM CDT) Only the most recent of2 resultswithin the time period is included. Anatomical Region Laterality Modality Spine Radiographic Sadie ging 05/09/2011 3:17 PM CDT Narrative 05/09/2011 3:17 PM CDT AP lateral view the lumbar spine. The anterior lumbar interbody fusions at L4-L5 and L5-S1 are noted to be fused with hardware intact Procedure Note Reading, No - 05/09/2011 AP lateral view the lumbar spine. The anterior lumbar interbody fusions at L4-L5 and L5-S1 are noted to be fused with hardware intact Isac Ontiveros DO DIAGNOSTIC IMAGING O RDERABLES * CT LUMBAR SPINE NON CONTRAST (01/30/2011 9:20 AM CDT) Anatomical Region Laterality Modality Spine Computed Tomogra phy 01/30/2011 2:51 PM CDT Impressions 01/30/2011 2:51 PM CDT Prior anterior lumbar spine stabilization L4-S1. No evidence of malalignment. Mild facet arthropathy at this level. Details of bone graft changes are described above. Incidental left adrenal adenoma, see above. Narrative 01/30/2011 2:[address] lumbar spine without contrast No available comparison HISTORY: Chronic back pain. History of lower lumbar spinal stabilization Technique: Helical CT acquisition of the lumbar spine without intravenous or oral contrast. Sagittal and coronal reformations were provided. FINDINGS: There is a 5 Hounsfield unit 15 mm left adrenal nodule consistent with adenoma. If patient has clinical signs or symptoms of adrenal hyperfunction, consider biochemical evaluation; otherwise, this meets imaging criteria for a benignity.. Small retroperitoneal lymph nodes are seen. No visible bowel obstruction or hydronephrosis. There surgical changes of prior anterior lumbar spine stabilization. Specifically, There is apparent bone graft material at the L4-L5 and L5-S1 disc space. Anterior to this there are anterior metallic cages seen at the disc level. From these cages, there are right and left fixation screws extending into the L4 and L5 vertebral bodies and S1 vertebral body. There is streak artifact from the metallic hardware. There appears to be bony incorporation of the bone graft material from the L4-L5 disc space into the superior endplate of L5. There some remodeling of the inferior endplate at L4. Definite bony fusion cannot be identified at the L5-S1 disc space and there is sclerosis of the superior endplate of L5. There is overall maintenance of normal lumbar lordosis. There is no evidence of listhesis. T12-L3. No evidence of stenosis on noncontrast exam. L3-L4. There is a suspected broad-based disc bulge without evidence of significant neural stenosis. L4-S1. Within the limits of streak artifact, no evidence of significant neuroforaminal narrowing. There is moderate degenerative facet changes at L4-S1. Procedure Note Randall Brown MD - 01/30/2011 CT lumbar spine without contrast No available comparison HISTORY: Chronic back pain. History of lower lumbar spinal stabilization Technique: Helical CT acquisition of the lumbar spine without intravenous or oral contrast. Sagittal and coronal reformations were provided. FINDINGS: There is a 5 Hounsfield unit 15 mm left adrenal nodule consistent with adenoma. If patient has clinical signs or symptoms of adrenal hyperfunction, consider biochemical evaluation; otherwise, this meets imaging criteria for a benignity.. Small retroperitoneal lymph nodes are seen. No visible bowel obstruction or hydronephrosis. There surgical changes of prior anterior lumbar spine stabilization. Specifically, There is apparent bone graft material at the L4-L5 and L5-S1 disc space. Anterior to this there are anterior metallic cages seen at the disc level. From these cages, there are right and left fixation screws extending into the L4 and L5 vertebral bodies and S1 vertebral body. There is streak artifact from the metallic hardware. There appears to be bony incorporation of the bone graft material from the L4-L5 disc space into the superior endplate of L5. There some remodeling of the inferior endplate at L4. Definite bony fusion cannot be identified at the L5-S1 disc space and there is sclerosis of the superior endplate of L5. There is overall maintenance of normal lumbar lordosis. There is no evidence of listhesis. T12-L3. No evidence of stenosis on noncontrast exam. L3-L4. There is a suspected broad-based disc bulge without evidence of significant neural stenosis. L4-S1. Within the limits of streak artifact, no evidence of significant neuroforaminal narrowing. There is moderate degenerative facet changes at L4-S1. IMPRESSION Prior anterior lumbar spine stabilization L4-S1. No evidence of malalignment. Mild facet arthropathy at this level. Details of bone graft changes are described above. Incidental left adrenal adenoma, see above. Isac Ontiveros DO CT ORDERABLES * MONONUCLEOSIS SCREEN - POINT OF CARE (11/11/2009 12:08 PM CDT) Mononucleosis Screen POCT negative NEGATIVE Grafton Test Internal Control Grafton Test Lot# Grafton Test Exp Date BLOOD SPECIMEN / Unknown Lily Olivera SHIPPING CLERK/ADMIN-SILK SNAPPER LAB - POINT O F CARE ORDERABLES * STREP A SCREEN - POINT OF CARE (AMB) (11/11/2009 11:41 AM CDT) Pathologist [facility] Strep A Rapid POCT negative NEGATIVE - POSITIVE Strep A Internal Control NEGATIVE - POSITIVE ENTIRE THROAT (SURFACE REGION OF NECK) / Unknown Lily Olivera SHIPPING CLERK/ADMIN-SILK SNAPPER LAB - POINT O F CARE ORDERABLES * GROSS + MICRO EXAM (06/18/1998 1:43 PM CDT) Result CASE NUMBER [id number] Comment: ORDERING PHYSICIAN KARMEN MANRIQUE SPECIMEN TYPE breast tissue RT-525 gm Preop Dx Back,neck, shoulder pain secondary to breast hypertrophy Postop Dx Same Clinical Findings See above GROSS DESCRIPTION There are two containers of histochoice. The first is labeled right breast tisseu and consists of 520 grams of yellow adipose breast tissue with minimal interposed marrero- white fibrous connective tissue and unremarkable skin. No focal lesions identified. Section is submitted. The second container is labeled left breast tissue and consists of 600 grams of predominantly adipose yellow breast tissue with minimal interposed marrero-white fibrous connective tissue. Also present is unremarkable marrero-carias skin. There are no focal abnormalities. Samples are submitted. ([facility])clr BLOCKS A - Right breast tissue B - Left breast tissue Grossed by Juvencio Guevara M.D. MICROSCOPIC EXAMINATION Sections show unremarkable breast lobular tissue with no hyperplasia or malignancy. Skin shows no abnormality. ([facility])clr DIAGNOSIS Breast tissue, right and left, excision - No pathologic diagnosis Read by Juvencio Guevara M.D. Released By JUVENCIO GUEVARA MISCELLANEOUS SAMPLES / Unknown 06/18/1998 1:43 PM CDT 06/18/1998 1:43 PM CDT Historical Provider LAB - PATHOLOGY/C YTOLOGY ORDERABLES Care Teams Licensed Insurance Sales Agent Relationship Specialty Start Date End Date Marielena Cisneros MD [address] [place] [address] PCP - General 08/01/24 Stephanie Angulo MD [address] [phone] Obstetrics and Gynecology 06/24/20 [place] [address] [facility] [address] [place], [place] [id number] General Surgery 12/08/21 Rossana Anderson DPM [address] [place] [phone] Podiatry 05/11/22
--- OUTSIDE RECORDS SUMMARY | 2024-10-30 13:25 | XMS_ITS | Encounter Summary ---
Author Organization [facility] Address [address] [facility] [place] [address] Care Team Providers Care Utility Agent Name Role Phone ArtemioArik gilmore Primary Care Provider Charan Love DO Unavailable Marielena Cisneros MD Primary Care Provider Stephanie Angulo MD Unavailable [phone] Silke Elaine MD Unavailable Constantine Dhillon MD Unavailable Constantine Dhillon MD Unavailable Rossana Anderson DPM Unavailable Marielena Cisneros MD Unavailable [phone] Andie Moss A Unavailable [phone] Marielena Cisneros MD Primary Care Provider Encounter Details Date Type Department Care Team (Late st Contact Info) Description 07/01/2016 [facility] Outpatient Visit [facility] - Radiology [address] [place] [address] Charan Love DO [address] [place] [address] Social History Tobacco Use Types Packs/Day Years Used Date Smoking Tobacco: Former Cigarettes 1 12 Smokeless Tobacco: Never Alcohol Use Standard Drinks/Week Comments No 0 (1 standard drink = 0.6 oz pur e alcohol) Sex and Gender Information Value Date Recorded Sex Assigned at Female 09/27/2020 3:43 PM BICYCLE REPAIR TECHNICIAN Gender Identity Female 09/27/2020 3:43 PM BICYCLE REPAIR TECHNICIAN Sexual Orientation Straight 09/27/2020 3: 43 PM BICYCLE REPAIR TECHNICIAN documented as of this encounter Plan of Treatment Not on file documented as of this encounter Visit Diagnoses Not on filedocumented in this encounter Additional Health Concerns Infection Onset Date Last Indicated Resolved Time COVID-19 Under Investigation 08/03/2021 08/03/2021 08/03/2021 10:58 AM BICYCLE REPAIR TECHNICIAN COVID-19 Under Investigation 10/10/2022 10/10/2022 10/10/2022 2:47 PM BICYCLE REPAIR TECHNICIAN documented as of this encounter Care Teams Utility Agent Relationship Specialty Start Date End Date Arik Ulloa DO [address] [place] [id number] PCP - General Family Medicine 12/06/15 06/23/20 Marielena Cisneros MD [address] [place] [phone] PCP - General Family Medicine 06/24/20 07/17/24 Marielena Cisneros MD [address] [place] [address] PCP - Attributed-[facility] 05/27/22 06/13/24 Marielena Cisneros MD [address] [place] [phone] PCP - General 08/01/24 Charan Love DO [address] [place] [id number] Orthopedic Surgery 12/13/16 01/02/23 Stephanie Angulo MD [address] [place] [phone] Obstetrics and Gynecology 06/24/20 [place] [address] [place] [id number] Pulmonary Disease 08/30/20 01/02/23 Constantine Dhillon MD [address] [place] [address] [place] [phone] Internal Medicine 12/08/21 12/08/21 [place] [address] [address] General Surgery 12/08/21 Rossana Anderson DPM [address] [place] [phone] Podiatry 05/11/22 Andie Moss, A Care Coordination Specialist Care Management 01/16/24 03/01/24 documented as of this encounter
--- OUTSIDE RECORDS SUMMARY | 2024-10-30 13:25 | XMS_ITS | Clinical Summary ---
Author Organization [facility] Address [address] [place] [address] Care Team Providers Care Advertising Production Manager Name Role Phone Stephanie Angulo MD Unavailable Constantine Dhillon MD Unavailable [phone] Rossana Anderson DPM Unavailable [phone] Marielena Cisneros MD Primary Care Provider [phone] Source Comments [facility],non-owned Affiliates and Associated Physician Practices is amultiple site organization consisting of ambulatory clinics and hospital sitesin [place], [place], [place]. This disclosure is being madepursuant to the Care Everywhere program and may not contain all information available regarding this patient. Last updated 18.[facility] Allergies Active Allergy Reactions Criticality Noted Date Comments Nsaids Other 07/27/2022 Had stomach surgery Medications * Be aware that medications may not be up to date on this document. Alwaysverify current medications with the patient. Medication Sig Dispensed Refills Start Date End Date Status escitalopram (LEXAPRO) 5 MG tablet 2 (two) tablets once daily 12/27/2021 Active ARIPiprazole (Abilify) 5 MG tablet Take 1 (one) tablet by mouth once daily Active busPIRone (Buspar) 10 MG tablet Take 1 (one) tablet by mouth 3 times daily 11/11/2022 Active mirtazapine (Remeron) 15 MG tablet Take 1 (one) tablet by mouth at bedtime 12/13/2022 Active phentermine (Ionamine) 15 MG capsule Take 1 (one) capsule by mouth daily before breakfast 30 capsule 01/01/2023 Active Active Problems Problem Noted Date Diagnosed Date S/P gastric bypass 02/15/2022 Psychophysiological insomnia 09/27/2020 BMI 50.0-59.9, adult 09/23/2020 Moderate episode of recurrent major depressive d isorder 09/23/2020 Overview (09/23/2020): Marielena Cisneros MD 08/30/20 Essential hypertension 06/24/2020 Fibroadenoma of left breast 10/07/2019 Gastroesophageal reflux disease 10/21/2018 Morbid obesity 04/28/2016 Overview (09/23/2020): Current BMI 48.44 ANABELA (generalized anxiety disorder) 03/27/2016 Herpes simplex 03/27/2016 DJD (degenerative joint disease), lumbar 016 OA (osteoarthritis) 07/05/2010 Chronic low back pain 03/08/2010 Migraine 06/30/2008 Resolved Problems Problem Noted Date Diagnosed Date Resolved Date Current mild episode of hermilo r depressive disorder, unspecified whether recurrent 09/23/2020 09/27/2020 Overview (09/23/2020): Artemio Castro Gary, DO 08/29/18 Major depression 03/27/2016 09/27/2020 Menometrorrhagia 11/26/2013 06/24/2020 Post-operative state 09/01/2010 020 Tobacco use disorder 06/30/2008 021 Lumbar disc disease 06/24/20 20 Encounters Date Type Department Care Team Description 09/02/2024 Bulk Orders Only [facility] - Family Medicine [address] [place], [place] [id number] Marielena Cisneros MD Screening for colorectal cancer from Last 3 Months Immunizations Name Administration Dates Next Due COVID RAGHAV PRIMARY 18+YR 02/01/2021 Covid Pfizer primary monoval ent 12+ yr 0.3mL Purple cap 08/03/2021 INFLUENZA VACCINE, QUADR. (F LUZONE; FLULAVAL; FLUARIX; AFLURIA QUADRIVALENT; 6MO+), 0.5 ML (IIV4) 05/17/2021 TDAP, HISTORIC VACCINE 12/27/2020 Zoster Hzv Vacc Recombinant Inj Im 05/17/2021, iNFLUENZA VACCINE, RECOM-TONG, QUADR. (FLUBLOCK QUADRIVALENT; 18Y+) (RIV4) 06/19/2022 Family History Medical History Relation Name Comments Anxiety Disorder Brother Sleep Disorder - Other Brother Bipolar Disorder Mother mental illn ess Hypertension Mother Cancer - Breast Neg Hx Relation Name Status Comments Brother Alive Father Mother Social History Tobacco Use Types [...] Sex Assigned at Female 09/27/2020 3:43 PM LOCOMOTIVE CRANE OPERATOR HELPER Gender Identity Female 09/27/2020 3:43 PM LOCOMOTIVE CRANE OPERATOR HELPER Sexual Orientation Straight 09/27/2020 3: 43 PM LOCOMOTIVE CRANE OPERATOR HELPER Last Filed Vital Signs Vital Sign Reading Time Taken Comments Blood Pressure 120/78 04/02/2023 1:53 PM CDT Pulse 76 01/03/2023 2:19 PM CDT Temperature 36.9 C (98.4 F) 01/01/2023 9:32 AM CDT Respiratory Rate 16 10/10/2022 2:22 PM LOCOMOTIVE CRANE OPERATOR HELPER Oxygen Saturation 99% 01/03/2023 2:19 PM CDT Inhaled Oxygen Concentration - - Weight 108.4 kg (239 lb) 04/02/2023 1:53 PM CDT Height 162.6 cm (5' 4 ) 04/02/2023 1:53 PM CDT Body Mass Index 41.02 04/02/2023 1:53 PM CDT Plan of Treatment Health Maintenance Due Date Last Done Comments COLON MONITORING 1970 COLONOSCOPY - COLON CA SCREENING 1970 CT COLONOGRAPHY - COLON CA SCREENING 1970 FIT - COLON CA SCREENING 1970 FLEX SIG - COLON CA SCREENING 1970 HEPATITIS B VACCINE (1 of 3 - 19+ 3-dose series) 1989 PNEUMOCOCCAL VACCINE 50+ (1 of 1 - PCV) 2020 MAMMOGRAM 11/14/2023 11/13/2022, 10/25, 10/24/2019 (Done Outside Per Report), Additional history exists COLOGUARD (AGES 45-75) - COLON CA SCREENING 12/07/2023 12/06/2020 Colorectal Cancer Screening 12/07/2023 COVID-19 VACCINE ( season) 2024 06/19/2022, 08/03/2021, 02/01/2021 INFLUENZA VACCINE (#1) 2024 06/19/2022, 2020 DEPRESSION SCREENING 08/27/2024 04/02/2023, 01/03/2023, 01/01/2023, Additional history exists MEDICARE AWV CALENDAR YEAR 2024 01/03/2023, 12/08/2021, 12/08/2021, Additional history exists SCREENING FOR DIABETES 09/13/2025 3, 02/16/2022, 02/16/2022, Additional history exists PAP SMEAR 04/02/2026 04/02/2023, 04/22/2019 LIPID TESTING 12/08/2026 12/08/2021, 11/25, 07/30/2020 DTAP/TDAP/TD VACCINES (2 - Td or Tdap) 12/27/2030 12/27/2020 HEPATITIS C SCREENING Completed 07/30/2020 HIV SCREENING Completed 07/30/2020 ZOSTER VACCINE Completed 05/17/2021, 12/27/2020 HIB VACCINE Aged Out No longer eligi ble based on patient's age to complete this topic HPV VACCINE Aged Out No longer eligi ble based on patient's age to complete this topic MENINGOCOCCAL (Group B) VACCINE Aged Out No longer eligible based on patient's age to complete this topic MENINGOCOCCAL VACCINE Aged Out No domingo bharath eligible based on patient's age to complete this topic Procedures Procedure Name Priority Date/Time Associated Diagnosis Comments PAP IG LB RFLX HPV APTIMA ASCU Routine 04/02/2023 2:10 PM CDT Screening for cervical cancer MAMMO BILAT SCREENING W COOKIE Routine 11/13/2022 3:02 PM CDT Encounter for screening mammogram for breast cancer COMPREHENSIVE METABOLIC PANEL Routine 09/13/2022 9:20 AM LOCOMOTIVE CRANE OPERATOR HELPER Morbid obesity (HCC) Bariatric surgery status Vitamin deficiency Vitamin D deficiency Postsurgical malabsorption (HCC) LIPID PROFILE Routine 12/08/2021 11:14 AM CDT Hypercholesteremia COLOGUARD TEST Routine 12/06/2020 8:00 AM CDT Screening for colon cancer HIV-1 HIV-2 ANTIBODY W REFLX Routine 07/30/2020 10:27 AM LOCOMOTIVE CRANE OPERATOR HELPER Encounter for screening for HIV HEPATITIS C AB W RFLX VERIFICATION Routine 07/30/2020 10:26 AM LOCOMOTIVE CRANE OPERATOR HELPER Need for hepatitis C screening test from Last 3 Months or Most Recently Relevant to Health Maintenance Results * PAP IG LB RFLX HPV APTIMA ASCU (04/02/2023 2:10 PM CDT) Diagnosis [facility] INSURANCE BILL Comment:NEGATIVE FOR INTRAEP ITHELIAL LESION OR MALIGNANCY. Specimen Adequacy [facility] INSURANCE BILL Comment: Satisfactory for evaluation. Endocervical and/or squamous metaplastic cells (endocervical component) are present. Clinician Provided ICD10 [facility] INSURANCE BILL Comment: Z01.419 Z12.4 Performed by [facility] INSURANCE BILL Comment:Nasima Kennedy hnologist (ASCP) Comment . [facility] INSURANCE BILL Note [facility] INSURANCE BILL Comment: The Pap smear is a screening test designed to aid in the detection of premalignant and malignant conditions of the uterine cervix. It is not a diagnostic procedure and should not be used as the sole means of detecting cervical cancer. Both false-positive and false-negative reports do occur. . IGLBP CPT Code Automation [facility] INSURANCE BILL Comment: This liquid based ThinPrep(R) pap test was screened with the use of an image guided system. Note [facility] INSURANCE BILL Comment: The HPV DNA reflex criteria were not met with this specimen result therefore, no HPV testing was performed. . Pathology/Cytolog y ENTIRE ENDOCERVIX / Unknown 04/02/2023 2:10 PM CDT 04/02/2023 Narrative [facility] INSURANCE BILL - 04/06/2023 11:11 AM CDT No. of containers..01 ThinPrep Vial Resulting Agency Comment Lab Testing performed at: [address] [phone] Marielena Cisneros MD LAB - PATHOLOGY/CYT OLOGY ORDERABLES [facility] [address] [place] [address] * MAMMO BILAT SCREENING W COOKIE (11/13/2022 3:02 PM CDT) Anatomical Region Laterality Modality Breast Bilateral Mammography [...] mammography. Marielena Cisneros MD MAMMO ORDERABLES * (ABNORMAL) COMPREHENSIVE METABOLIC PANEL (09/13/2022 9:20 AM LOCOMOTIVE CRANE OPERATOR HELPER) Glucose 71 70 - 99 mg/dL [facility] [...] BLOOD SPECIMEN / Unknown 09/13/2022 9:20 AM LOCOMOTIVE CRANE OPERATOR HELPER 09/13/2022 Narrative Resulting Agency Comment Lab Testing performed at: [facility] [address] [facility] [id number] Madeline Agnlin FRAME RUNNER-HOGSHEAD WRECKER LAB - CHEMIS TRY ORDERABLES [facility] INSURANCE BILL [address] [place] [address] * (ABNORMAL) LIPID PROFILE (12/08/2021 11:14 AM CDT) Cholesterol 241(H) <200 mg/dL [facility] INSURANCE BILL Triglycerides 174(H) <150 mg/dL [facility] INSURANCE BILL HDL Cholesterol 61 >40 mg/dL [facility] INSURANCE BILL VLDL Calculated 35(H) <=30 mg/dL [facility] INSURANCE BILL LDL Calculated 145(H) <130 mg/dL [facility] INSURANCE BILL Comment:FASTING Blood BLOOD SPECIMEN / Unknown 12/08/2021 11:14 AM CDT 12/08/2021 Narrative Resulting Agency Comment Lab Testing performed at: [facility] [address] [place] [id number] Marielena Cisneros MD LAB - CHEMISTRY ORD ERABLES [facility] INSURANCE BILL [address] [place] [address] * [id number] COLOGUARD TEST *Associate with Z12.11 OR Z12.12 Dx Codes* (12/06/2020 8:00 AM CDT) Cologuard Negative Not Applicable [facility] Comment: A negative result indicates [...] (Ida Durand al, N Engl J Med 2014;370(14):7443-6083) The normal value (reference range) for this assay is negative. COLOGUARD RE-SCREENING RECOMMENDATION: Periodic routine colorectal cancer screening is an important part of preventive healthcare for asymptomatic persons at average risk for colorectal cancer. Following a negative Cologuard result, the [employer] Cancer Society and U.S. Multi-Society Task Force screening guidelines recommend a Cologuard re-screening interval of 3 years. References: [employer] Cancer Society (ACS). Colorectal cancer prevention and early detection. [place], [place]: [place] Cancer Society; [updated 2015Dec 18]. https://www.cancer.org/cancer/tffal-tiemrd-jpgqxk/vliyomqrx-sqpdurhag-qpxsyqu/ acs-recommendations.html. Accessed April 26, 2018; Anselmo DK, Irvin ALFARO, Marsha JaneK, Colorectal Cancer Screening: Recommendations for Physicians and Patients from the U.S. Multi-Society Task Force on Colorectal Cancer Screening, Am J Gastroenterology 2017; 112:5023-2381. TEST TYPE: Composite algorithmic analysis of stool [...] interval of every 3 years by the [place] Cancer Society and U.S. Multi-Society Task Force. [...] can be accessed at the following location: www.[employer].AdReady/results. Additional description of the Cologuard test process, warnings and precautions can be found at www.cologuardtest.com. Rx only. Stool specimen (specimen) STOOL SPECIMEN / Unknown 12/06/2020 8:00 AM CDT 12/07/2020 2:20 PM CDT Marielena Cisneros MD LAB - CHEMISTRY ORD ERABLES [facility] [address] [place] [address] [facility] [address] [place] [address]. [place] [address] * HIV-1 HIV-2 ANTIBODY W REFLX (07/30/2020 10:27 AM LOCOMOTIVE CRANE OPERATOR HELPER) HIV-1 Antibody Negative Negative [facility] INSURANCE BILL HIV-2 Antibody Negative Negative [facility] INSURANCE BILL Interpretation Negative [facility] INSURANCE BILL Comment: See RNA Reflex. FASTING Blood BLOOD SPECIMEN / Unknown 07/30/2020 10:27 AM LOCOMOTIVE CRANE OPERATOR HELPER 07/30/2020 Narrative Resulting Agency Comment Lab Testing performed at: [facility] [address] [facility] [phone] Marielena Cisneros MD LAB - SEROLOGY ORDE KIERSTEN Performing Organization Address City/[facility] Co de Phone Number [facility] INSURANCE BILL [address] [place] [address] * HEPATITIS C AB W RFLX VERIFICATION (07/30/2020 10:26 AM LOCOMOTIVE CRANE OPERATOR HELPER) Hepatitis C Antibody <0.1 0.0 - 0.9 s/co ratio [facility] INSURANCE BILL Comment:FASTING Blood BLOOD SPECIMEN / Unknown 07/30/2020 10:26 AM LOCOMOTIVE CRANE OPERATOR HELPER 07/30/2020 Narrative Resulting Agency Comment Lab Testing performed at: [facility] [address] [facility] [id number] Marielena Cisneros MD LAB - CHEMISTRY ORD ERABLES [facility] INSURANCE BILL [address] [place] [address] from Last 3 Months or Most Recently Relevant to Health Maintenance Advance Directives Documents on File Type Date Recorded Patient Ore Tester Expl anation Adv Directive/Living Will/POA 02/18/2022 1:53 PM * Full Code (Latest Code Status on File) Date Activated Date Inactivated Comments 02/15/2022 4:13 PM 02/16/2022 7:54 PM Care Teams Advertising Production Manager Relationship Specialty Start Date End Date Marielena Cisneros MD [address] [place] [phone] PCP - General 08/01/24 Stephanie Angulo MD [address] [place] [phone] Obstetrics and Gynecology 06/24/20 [place] [address] [facility] [address] [place] [address] General Surgery 12/08/21 Rossana Anderson DPM [address] [place] [phone] Podiatry 05/11/22
--- OUTSIDE RECORDS SUMMARY | 2024-10-30 13:25 | XMS_ITS | Encounter Summary ---
Author Organization [facility] Address [address] [place] [address] Care Team Providers Care Gi Technician Name Role Phone Marielena Cisneros MD Primary Care Provider Encounter Details Date Type Department Care Team (Late st Contact Info) Description 08/13/2007 Outpatient Historical [facility] [id number] [place] [address] [address] [place] [address] Brigida William MD NO ADDRESS ON FILE Social History Tobacco Use Types Packs/Day Years Used Date Smoking Tobacco: Never Assessed Comments Unknown Sex and Gender Information Value Date Recorded Sex Assigned at Female 09/18/2024 1:20 AM FORESTRY TECHNICAL OFFICER Legal Sex Female 3:14 AM FORESTRY TECHNICAL OFFICER Gender Identity Female 09/18/2024 1:20 AM FORESTRY TECHNICAL OFFICER Sexual Orientation Straight 09/18/2024 1: 20 AM FORESTRY TECHNICAL OFFICER documented as of this encounter Plan of Treatment Not on file documented as of this encounter Visit Diagnoses Not on filedocumented in this encounter Care Teams Gi Technician Relationship Specialty Start Date End Date Marielena Cisneros MD [facility] [place] [address] PCP - General Family Practice 06/24/20 documented as of this encounter
== END 2024-10-30 11:56 | disposition home or self-care (01) ==
PROVIDERS: PCP Nurse Practitioner Family; Visit Provider Nurse Practitioner Family
DX: Z12.31 Encounter for screening mammogram for malignant neoplasm of breast (principal)
CPT/HCPCS: 77063; 77067

== ENCOUNTER 2024-11-05 10:44 | Outpatient (CLI) | payer MEDICARE, MEDICAID, SELFPAY ==
--- NOTE | ~2024-11-05 | XR_ITS ---
Clinical Indication: Posterior thoracic pain PA and lateral views of the chest: Comparison: None Findings: The lungs are clear, without evidence of focal consolidation or pleural effusion. Cardiome diastinal silhouette is within normal limits. Bones and soft tissues are unremarkable. Impression: Normal chest. Reviewed, dictated and finalized at location . Impression: Normal chest.
== END 2024-11-05 10:45 | disposition home or self-care (01) ==
LOC: MICIMG 10:47
PROVIDERS: PCP Nurse Practitioner Family; Visit Provider Nurse Practitioner Family
DX: R07.1 Chest pain on breathing (principal)
CPT/HCPCS: 71046

== ENCOUNTER 2024-12-22 09:18 | Outpatient (CLI) | payer MEDICARE, MEDICAID, SELFPAY ==
--- NOTE | ~2024-12-22 | XR_ITS ---
3 VIEWS THORACIC SPINE Ordering provider: Adilene Julio, SEED PRODUCTION FIELD SUPERVISOR History: . Thoracic back pain . Comparison: None. FINDINGS: VERTEBRAL BODIES: Normal height and alignment. No visible fracture or subluxation. Degenerative ni es of the spine. DISK SPACES: Multilevel degenerative disc disease in the mid and lower thoracic area. SOFT TISSUES: Normal. IMPRESSION: No acute osseous abnormality of the thoracic spine. Multilevel degenerative disc disease. Reviewed, dictated and finalized at location A.
== END 2024-12-22 09:19 | disposition home or self-care (01) ==
PROVIDERS: PCP Nurse Practitioner Family; Visit Provider Nurse Practitioner Family
DX: M51.24 Other intervertebral disc displacement, thoracic region (principal)
CPT/HCPCS: 72072

== ENCOUNTER 2025-01-27 09:28 | Emergency (ER) | payer MEDICARE, MEDICAID, SELFPAY ==
--- NOTE | ~2025-01-27 | XR_ITS ---
XR shoulder RT min 2V 01/27/2025 10:22 Indication: Right shoulder pain after fall Procedure: 4 views right shoulder Comparison: No prior studies for comparison. Findings: There is polyarticular osteoarthritis. No acute fracture or traumatic malalignment. Osteope daniel. No soft tissue abnormality. No foreign bodies. Impression: 1: No acute fracture. Reviewed, dictated and finalized at location A. Impression: 1: No acute fracture.
--- NOTE | ~2025-01-27 | XR_ITS ---
XR elbow RT min 3V 01/27/2025 10:22 Indication: Status post injury. Right elbow pain. Procedure: 4 views right elbow Comparison: No prior studies for comparison. Findings: No fracture, subluxation or dislocation. No joint effusion. No foreign bodies. No joint eff usion. No foreign bodies. There is a corticated ossific density at the medial humeral epicondyle, lik soledad related to remote trauma. Impression: 1: No acute bone or joint abnormality. Reviewed, dictated and finalized at location A. Impression: 1: No acute bone or joint abnormality.
--- NOTE | ~2025-01-27 | XR_ITS ---
XR wrist RT min 3V 01/27/2025 10:22 Indication: Right wrist pain Procedure: 4 views right wrist Comparison: No prior studies for comparison. Findings: No fracture, subluxation or dislocation. No soft tissue abnormality. There are degenerative changes of the triscaphe, first MCP and carpal metacarpal joints. No foreign bodies. Impression: 1: No acute bone or joint abnormality. Reviewed, dictated and finalized at location A. Impression: 1: No acute bone or joint abnormality.
[2025-01-27 09:39] VITALS: BP 122/69; PULSE 64; RESP 16; TEMP 36.6; O2SAT 99
--- NOTE | 2025-01-27 09:56 | ED.UPPEXIN ---
HPI - Extremity Injury (Upper) General Chief Complaint: Extremity Injury, Upper Stated Complaint: Injured R Hand Time Seen by Provider: 01/27/25 09:52 Source: patient, RN notes reviewed and old records reviewed Mode of arrival: ambulatory Limitations: no limitations History of Present Illness HPI narrative: 54-year-old female who presents to express care with complaints of pain to her right wrist, elbow and shoulder after slipping on steps getting into pool at [facility] about 17oo yesterday. Patient reports that she put her right arm down to break her fall. Patient reports that she didn't really feel bad or have acute pain initially after she left the [facility]. Patient states that she went home and did some sanding and painting on the vanessa. She report that this morning she noted pain to her right wrist with all over bruising noted to palm of hand, has stiffness and some discomfort also to right elbow and pain to right shoulder with any movement. MD complaint: injury to: right, shoulder, elbow and wrist Onset (ago): day(s) (yesterday around 5 pm) Other injuries: none Place: other ([facility]) Severity: moderate Severity scale (1-10): 5 Treatments prior to arrival: cold therapy, NSAIDS and other (Tylenol) Related Data Allergies Allergy/AdvReac Type Severity Reaction Status Date / Time lurasidone AdvReac Severe Itching Verified 05/06/24 11:31 Review of Systems Review of Systems: CONSTITUTIONAL: Denies fever, chills, or sweats. EYES: Denies visual changes, redness, or discharge. ENT: Denies rhinorrhea, congestion, sore throat, or otalgia. CARDIOVASCULAR: Denies chest pain, palpitations, or edema. RESPIRATORY: Denies cough or dyspnea. GASTROINTESTINAL: Denies abdominal pain, nausea, vomiting, or diarrhea. GENITOURINARY: Denies dysuria or hematuria. SKIN: Denies rash or itching. MUSCULOSKELETAL: Denies back pain, positive for pain to right wrist, right elbow and also to right shoulder after slipping on steps going into pool at [facility], or myalgia. NEUROLOGIC: Denies headache, numbness, or weakness. PSYCHIATRIC: Denies anxiety or depression. All systems reviewed & are unremarkable except as noted in HPI and below PMFSH Past Medical History Medical History (Updated 01/28/25 @ 09:19 by Marcella Bermudez NP) Insomnia Osteoarthritis Obese Sinusitis RLS (restless legs syndrome) Arthritis Anxiety Surgical History Surgical History (Updated 01/28/25 @ 09:07 by Marcella Bermudez NP) History of total right knee replacement History of spinal fusion Hx of breast reduction, elective History of tonsillectomy History of cholecystectomy History of total left knee replacement Family History Family History Father Hypertension Heart disease Mother Depression Sibling Alcoholism Asthma Depression Grandparent Hypertension Heart disease Social History Social History Social History: 08/27/24 very confident with medical forms Smoking packs per day: 1.5 Smoking cigarettes per day: 30.0 Years smoked: 10 Smoking pack-years: 15.00 Smoking status: Former smoker Alcohol intake: current Alcohol use details: Occasionally - more social Substance use: never Substance use type: does not use Do You Feel Safe in your Home?: Yes Lack of Transportation: YES Lack of Food: Never True Current Housing: I Have Housing Concerned About Future Housing: No Difficulty Paying Gas/Electric Bills: No Difficulty Paying for Meds: No Currently Unemployed: No Education: High School Diploma/GED Difficulty w/ Childcare or Family Care: No Living arrangements: with family Occupation/Education: occupation Gender identity (if verbalized by the patient): Female Comments At time of signature, agree with nursing past medical, surgical, social and family history. There is no relevant family history pertinent to the presenting complaint Exam Narrative: GENERAL: Well-appearing, well-nourished, obese, and in no acute distress. HEAD: Normocephalic, atraumatic. EYES: PERRLA and EOMI. ENT: Nares clear, no rhinorrhea or epistaxis. Mucous membranes moist. NECK: Supple. no lymphadenopathy CHEST: Clear to auscultation. No respiratory distress.no cough noted SAO2 99% on room air HEART: Regular rate and rhythm. No murmur heard. Normal peripheral pulses. ABDOMEN: Soft, nontender, nondistended, normal active bowel sounds. EXTREMITIES: Normal range of motion. No edema.Exception noted to some mild swelling to the right wrist with noted ecchymosis to palm of hand,increased pain with movement of wrist, Patient has complaints of pain also to right elbow and to right shoulder with increased pain with movement no acute swelling noted. pulses strong to right wrist and right arm with no complaints of tingling or numbness to right arm or hand. Patient has limited extension of right shoulder related to pain. SKIN: Warm, dry, no rash. NEURO: No focal deficits. Alert and oriented x3. Course Course Emergency Course: Patient is aware of diagnosis, understands and agrees to treatment plan.? Anticipatory guidance given.? Patient agrees to follow-up as directed and is aware of reasons to seek care at the emergency department. Portions of this record may have been created with voice recognition software Level of Care: Express Care Visit Vital Signs Vital signs: Vital Signs Temperature 36.6 C 01/27/25 09:39 Pulse Rate 64 01/27/25 09:39 Respiratory Rate 16 01/27/25 09:39 Blood Pressure 122/69 01/27/25 09:39 Pulse Oximetry 99 01/27/25 09:39 Temperature 36.6 C 01/27/25 09:39 Pulse Rate 64 01/27/25 09:39 Respiratory Rate 16 01/27/25 09:39 Blood Pressure 122/69 01/27/25 09:39 Pulse Oximetry 99 01/27/25 09:39 Reviewed MDM - Extremity Injury (Upper) Differential Diagnosis Differential diagnosis: Likely sprain and strain of wrist, fracture of wrist, dislocation of shoulder and other (right elbow strain, right elbow strain) Medical Records Attestation: I reviewed the patient's medical records. Imaging Data Attestation: I personally reviewed and interpreted this imaging study as follows: My impression: right wrist no fracture degenerative changes noted to triscaphe 1st MCP, carpal metacarpal joint right elbow:no bone or joint abnormality no fracture or joint effusion Right shoulder: no fracture, polyarticular osteoarthritis, osteopenia Radiologist's impression: [facility] [place] [id number] [facility] [place] [address] XRay Report no bone orSigned Patient: Mile Ruiz : 1970 MR#: [id number] Age: 54 Acct:[id number] Loc: [facility] ADM Date: 01/27/25Attending Dr: Ordering Physician: Marcella Bermudez APRN Date of Service: 01/27/25 Procedure(s): XR wrist RT min 3V Accession Number(s): [id number] cc: [employer] SAL[employer] ACCOUNT EXECUTIVE PHYSICIAN; Marcella Bermudez APRN~ XR wrist RT min 3V 01/27/2025 10:22 Indication: Right wrist pain Procedure: 4 views right wrist Comparison: No prior studies for comparison. Findings: No fracture, subluxation or dislocation. No soft tissue abnormality. There are degenerative changes of the triscaphe, first MCP and carpal metacarpal joints. No foreign bodies. Impression: 1: No acute bone or joint abnormality. Reviewed, dictated and finalized at location A. Please be advised this is a medical document. It is intended for sqit-uc-mlly communication. It is written in medical language and may contain unfamiliar abbreviations or verbiage. Medical documents are intended to carry relevant information, facts as evident, and the clinical opinion of the practitioner at the time of the encounter. This report may have been done utilizing a voice recognition system. Attempts have been made to correct errors. However, there may be uncorrected grammatical, spelling, and recognition errors present. The file time of this note does not necessarily represent the time of service. Dictated By: Edgar Cedeno MD 01/27/25 1037 Signed By: <Electronically signed by Edgar Cedeno MD in OV> [address] [address] XRay Report Signed Patient: Mile Ruiz : 1970 MR#: [id number] Age: 54 Acct:[id number] Loc: [facility] ADM Date: 01/27/25Attending Dr: Ordering Physician: Marcella Bermudez APRN Date of Service: 01/27/25 Procedure(s): XR elbow RT min 3V Accession Number(s): [id number] cc: [employer] SAL[employer] ACCOUNT EXECUTIVE PHYSICIAN; Marcella Bermudez APRN~ XR elbow RT min 3V 01/27/2025 10:22 Indication: Status post injury. Right elbow pain. Procedure: 4 views right elbow Comparison: No prior studies for comparison. Findings: No fracture, subluxation or dislocation. No joint effusion. No foreign bodies. No joint effusion. No foreign bodies. There is a corticated ossific density at the medial humeral epicondyle, likely related to remote trauma. Impression: 1: No acute bone or joint abnormality. Reviewed, dictated and finalized at location A. Please be advised this is a medical document. It is intended for ijin-gy-pefx communication. It is written in medical language and may contain unfamiliar abbreviations or verbiage. Medical documents are intended to carry relevant information, facts as evident, and the clinical opinion of the practitioner at the time of the encounter. This report may have been done utilizing a voice recognition system. Attempts have been made to correct errors. However, there may be uncorrected grammatical, spelling, and recognition errors present. The file time of this note does not necessarily represent the time of service. Dictated By: Edgar Cedeno MD 01/27/25 1032 Signed By: <Electronically signed by Edgar Cedeno MD in OV> [place] [address] XRay Report Signed Patient: Mile Ruiz : 1970 MR#: [id number] Age: 54 Acct:[id number] Loc: [facility] ADM Date: 01/27/25Attending Dr: Ordering Physician: Marcella Bermudez APRN Date of Service: 01/27/25 Procedure(s): XR shoulder RT min 2V Accession Number(s): [id number] cc: [employer] ACCOUNT EXECUTIVE PHYSICIAN; Marcella Bermudez APRN~ XR shoulder RT min 2V 01/27/2025 10:22 Indication: Right shoulder pain after fall Procedure: 4 views right shoulder Comparison: No prior studies for comparison. Findings: There is polyarticular osteoarthritis. No acute fracture or traumatic malalignment. Osteopenia. No soft tissue abnormality. No foreign bodies. Impression: 1: No acute fracture. Reviewed, dictated and finalized at location A. Please be advised this is a medical document. It is intended for iuon-ja-dgym communication. It is written in medical language and may contain unfamiliar abbreviations or verbiage. Medical documents are intended to carry relevant information, facts as evident, and the clinical opinion of the practitioner at the time of the encounter. This report may have been done utilizing a voice recognition system. Attempts have been made to correct errors. However, there may be uncorrected grammatical, spelling, and recognition errors present. The file time of this note does not necessarily represent the time of service. Dictated By: Edgar Cedeno MD 01/27/25 1025 Signed By: <Electronically signed by Edgar Cedeno MD in OV> 01/27/25 1032 Critical Care Time Critical Care Time Critical Care Time: No Discharge Plan Discharge Clinical Impression: Sprain and strain of right wrist Pain in right shoulder Qualifiers: Chronicity: acute Qualified Code(s): M25.511 - Pain in right shoulder Strain of right elbow Qualifiers: Encounter type: initial encounter Qualified Code(s): S56.911A - Strain of unspecified muscles, fascia and tendons at forearm level, right arm, initial encounter Patient Disposition: Home Condition: Stable Instructions: Wrist Injury (ED), Shoulder Pain (ED), Early Postoperative or Post Injury Shoulder Exercises (ED), Elbow Strain (ED) Additional Instructions: Elastic wrap or orthopedic splint to right wrist as directed for comfort for the next 5-7 days Tylenol for lesser pain Ibuprofen regularly for the next 2-3 days for the inflammation Prednisone twice daily for 5 days take with food Follow-up with orthopedic surgeon if any further concerns Follow-up with PCP if further problems or concerns Ice to the area 20-30 minutes 4-6 times a day Elevate above heart exercises as prescribed If your symptoms persist, change or worsen significantly before you can contact your personal physician then please, without delay, go to the emergency department for further evaluation. Follow-up with PCP in 7-10 days or sooner if needed Patient Language: Iranian Prescriptions: New prednisone 20 mg tablet 40 mg PO DAILY 5 Days Qty: 10 0RF No Action trazodone 50 mg tablet 50 mg PO QHS Qty: 90 0RF phentermine 37.5 mg tablet 37.5 mg PO DAILY Qty: 30 0RF Rx Instructions: must administer 30 minutes before or 1-2 hours after breakfast ropinirole 4 mg tablet 4 mg PO QHS Qty: 90 0RF cyclobenzaprine 10 mg tablet 10 mg PO TID PRN (Reason: muscle spasm) Qty: 20 0RF Follow-up/Referrals: PHYSICIAN,RADIO SALES ACCOUNT EXECUTIVE [Primary Care Provider] - Time of Disposition: 10:56 Quality [place] Coma Scale Eyes: Open Verbal: Oriented and Alert Motor: Follows Commands [place] Coma Total Score: 15
== END 2025-01-27 11:01 | disposition home or self-care (01) ==
PROVIDERS: Emergency Provider Registered Nurse
DX: S63.501A Unspecified sprain of right wrist, initial encounter (principal); S56.911A Strain of unspecified muscles, fascia and tendons at forearm level, right arm, initial encounter; M25.511 Pain in right shoulder; W01.0XXA Fall on same level from slipping, tripping and stumbling without subsequent striking against object, initial encounter; Z87.891 Personal history of nicotine dependence; Y92.34 Swimming pool (public) as the place of occurrence of the external cause
CPT/HCPCS: 73030; 73080; 73110; 99214; G0463